=== PATIENT | male | born 1955 | race Two or more races ===

== ENCOUNTER 2024-02-29 13:35 | Inpatient (IN) | payer OTHER, MEDICARE, SELFPAY ==
[2024-02-29] VITALS (9 sets, daily range): BP systolic 112–160; BP diastolic 63–80; PULSE 97–107; RESP 15–92; TEMP 36.9–37.9; O2SAT 92–97; BMI 26.2; BMI 21.4
--- NOTE | 2024-02-29 13:57 | XR_ITS ---
Examination: PA lateral chest 2 views TECHNIQUE: Upright PA lateral chest 2 views Exam date and time: February 29, 2024 1400 hours INDICATIONS: Coughing fever beginning 2 weeks ago. FINDINGS: Prominent pneumonia in the right upper lobe which may be cavitary Normal heart size Right internal jugular dialysis catheter tips SVC satisfactory position IMPRESSION: Prominent pneumonia in the right upper lobe, which may be cavitary
--- NOTE | 2024-02-29 13:57 | EKG_ITS ---
[facility], [place] Test Date: 2024-02-29 Pat Name: LALY JERNIGAN Department: Room: - Gender: Male [employer]: : 1955 Requested By: Azael Vicente Order Number: [id number] Reading MD: Azael Vicente Measurements Intervals [place] Rate: 94 P: 56 [place]: 127 QRS: 4 QRSD: 86 T: 124 QT: 359 QTc: 450 Interpretive Statements SINUS RHYTHM NONSPECIFIC ST & T-WAVE ABNORMALITY No previous ECG available for comparison /store/S0/[id number]/ecg/[id number].pdf
--- NOTE | 2024-02-29 13:58 | EDRME_ITS ---
Rapid Medical Screening Exam [facility] Arrival date/time: 02/29/24 13:35 68-year-old male with a history of type 2 diabetes on dialysis Thursday and Thursday, hypertension, hyperlipidemia presents to the emergency room with a chief complaint of generalized weakness, headache, night sweats, fevers x 1 week that have progressively gotten worse the last 2 days. I have greeted and performed a focused initial assessment of this patient. A comprehensive ED assessment and evaluation of the patient, analysis of all test results, and completion of the medical decision making process will be conducted by additional ED providers. Chief Complaint: Flu Like Symptoms Vital signs: Vital Signs Temperature 98.6 F 02/29/24 13:54 Pulse Rate 97 02/29/24 13:54 Respiratory Rate 18 02/29/24 13:54 Blood Pressure 112/63 02/29/24 13:54 Pulse Oximetry (%) 96 02/29/24 13:54 Oxygen Delivery Method Room Air 02/29/24 13:54 Vital signs reviewed by provider: Yes
[2024-02-29 14:44] LABS: Basophils # (Auto) 0.1 Thou/mm3 (0.0-0.2); Basophils % (Auto) 1 % (0-2.5); Eosinophils # (Auto) 0.1 Thou/mm3 (0.0-0.5); Eosinophils % (Auto) 1 % (0-10); Hematocrit 37.8 % (41.0-53.0); Hemoglobin 12.1 g/dL (13.5-16.0); Immature Granulocytes % (Auto) 2 % (0-0); Immature Granulocytes Auto 0.14 Thou/mm3 (0.00-0.00); Lymphocytes # (Auto) 0.4 Thou/mm3 (1.0-4.8); Lymphocytes % (Auto) 5 % (10-50); Mean Corpuscular Hemoglobin 26.6 pg (25.0-35.0); Mean Corpuscular Volume 83 fL (80-100); Monocytes # (Auto) 1.1 Thou/mm3 (0.0-0.8); Monocytes % (Auto) 14 % (0-12); Neutrophils # (Auto) 6.2 Thou/mm3 (1.8-7.7); Neutrophils % (Auto) 77 % (37-80); Nucleated Red Blood Cell % 0 /100 WBC (0); Platelet Count 219 Thou/mm3 (140-440); RDW Standard Deviation 59.4 fL (35.1-43.9); Red Blood Count 4.55 Miln/mm3 (4.50-5.90)
[2024-02-29 14:59] LABS: INR 1.1 (0.9-1.3); Partial Thromboplastin Time 28.4 Seconds (22.0-36.0); Prothrombin Time 11.8 Seconds (9.0-12.2)
[2024-02-29 15:04] LABS: B-Type Natriuretic Peptide 179 pg/mL (0-100)
[2024-02-29 15:13] LABS: Anion Gap 9 (7-16); BUN/Creatinine Ratio 7 Ratio (12-20); Blood Urea Nitrogen 22 mg/dL (9-23); Carbon Dioxide 26.3 mMol/L (20.0-31.0); Chloride 95 mMol/L (98-107); Estimated Creatinine Clearance 18.6 mL/min (>60); Glucose 155 mg/dL (74-106); Potassium 3.6 mMol/L (3.4-5.1); Sodium 130 mMol/L (136-145); eGFR 22 See Note
[2024-02-29 15:14] LABS: Albumin, Serum 3.9 gm/dL (3.4-4.8); Albumin/Globulin Ratio 0.7 (1.2-2.2); Alkaline Phosphatase 142 U/L (46-116); Aspartate Amino Transferase 16 U/L (0-34); Bilirubin,Total 0.4 mg/dL (0.3-1.2); Calcium 8.8 mg/dL (8.3-10.6); Calcium (Corrected) 8.9 mg/dL (8.5-10.1); Globulin 5.8 gm/dL (2.3-3.5); Lipase 65 U/L (12-53); Magnesium 2.2 mg/dL (1.6-2.6); Osmolality,Calculated 267 (275-295); Total Protein 9.7 gm/dL (5.7-8.2)
[2024-02-29 15:28] LABS: Alanine Aminotransferase 8 U/L (10-49)
[2024-02-29 15:29] LABS: Troponin I 0.104 ng/mL (0.0-0.045)
[2024-02-29 16:50] LABS: Collection Type, Urine Clean Catch; RBC,Urine 0 /hpf (0-3); Squamous Epithelial Cell,Urine 0 /hpf (0-5)
[2024-02-29 17:06] LABS: Bacteria,Urine 3+; Bilirubin,Urine Negative (Negative); Blood,Urine 1+ (Negative); Budding Yeast,Urine Present; Clarity,Urine Turbid (Clear/Hazy); Color,Urine Lt-Yellow (Lt Yel-Yel); Glucose, Urine 3+ (Negative); Ketones,Urine Negative (Negative); Leukocyte Esterase,Urine Negative (Negative); Nitrite,Urine Negative (Negative); PH,Urine 6.5 (5.0-7.0); Protein,Urine 2+ (Neg - Trace); Urobilinogen,Urine Negative mg/dL (0.0-1.0); WBC,Urine 1 /hpf (0-5)
--- NOTE | 2024-02-29 17:55 | XR_ITS ---
Examination: CT chest, without intravenous contrast. Sagittal and coronal 2-D reconstructions. Exam date and time: February 29, 2024 1823 hrs. Fever coughing today, pneumonia in the right upper lobe on chest x-ray, today, cavitary CTDI:vol (mGy) 9.9 DLP: (mGycm) 357 Technique: Multiple 3.0 mm axial sections of the chest to been obtained. Bone and lung density settings are obtained. Sagittal and coronal 2-D reconstructions have been obtained. Low dose protocols were performed. One or more of the following dose reduction techniques were used; automated exposure control, adjustment of the mA and/or KV according to patient size, use of iterative reconstruction technique. Findings: AP dimension ascending thoracic aorta 3.7 cm Pulmonary artery segments are not enlarged Extensive pneumonia in the right upper lobe primarily posterior segment with areas of small cavitation axial image 81 Scattered areas of mild infiltrate throughout the left lung and at the right lung base No visualized liver or splenic lesion Absent gallbladder No pancreatic mass No hydronephrosis The osseous structures are demineralized Impression: Extensive cavitary infiltrate in the right upper lobe primarily posterior segment Scattered areas of milder infiltrate throughout the left lung and at the right lung base Highest on the differential list is infectious processes including active tuberculosis, underlying tumor in the right upper lobe not excluded Follow-up chest imaging recommended post treatment to document improvement clearing
--- NOTE | 2024-02-29 17:56 | PD.EDADULT ---
ED General RME/HPI General Chief complaint: Flu Like Symptoms Stated complaint: FEVER, MITCHELL, BODYACHES Time Seen by Provider: 02/29/24 17:50 Arrival date/time: 02/29/24 13:35 CC: Night sweats and fevers HPI ongoing x 1 week. 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 Subjective fevers at home. At the time of the exam the patient was shaking. Denies any chest pain or shortness of breath RME / HPI RME / HPI narrative: 02/29/24 13:35 68-year-old male with a history of type 2 diabetes on dialysis Thursday and Thursday, hypertension, hyperlipidemia presents to the emergency room with a chief complaint of generalized weakness, headache, night sweats, fevers x 1 week that have progressively gotten worse the last 2 days. I have greeted and performed a focused initial assessment of this patient. A comprehensive ED assessment and evaluation of the patient, analysis of all test results, and completion of the medical decision making process will be conducted by additional ED providers. Related Data Allergies Allergy/AdvReac Type Severity Reaction Status Date / Time No Known Allergies Allergy Verified 07/28/22 16:17 Review of Systems Review of Systems Narrative Review of Systems: GEN: + fever, no chills, no weight loss EYES: No discharge, no visual changes, no pain HEENT: No ear pain, no congestion, no sore throat PULM: No shortness of breath, no cough, no congestion CV: No chest pain, no dyspnea on exertion, no palpitations GI: No nausea, no vomiting, no diarrhea, no pain, no constipation : No frequency, no urgency, no dysuria MUSC/SKEL: No joint pain, no back pain SKIN: No rash PSYCH: No hallucinations, no depression HEME/LYMPH: No easy bleeding or bruising tendencies NEURO: No weakness, no headache ED Exam Narrative Physical exam: [General: Mild discomfort on any acute distress Head normocephalic HEENT: Within acceptable limits Neck is supple nontender Chest equal chest rise nontender to palpation, dialysis shunt emerging from the right anterior chest dressing is clean dry and intact no surrounding erythema or edema. Respiratory: Clear to auscultation no wheezes crackles or rubs CV: Rate rhythm is regular no murmurs rubs or clicks Abdomen is soft nontender no masses positive bowel sounds all 4 quadrants Back: No CVA tenderness no spinous process tenderness from cervical spine thoracic and lumbar spine Skin: Intact no petechiae rash induration ulceration or crepitus Extremities: Moving all extremity against resistance cap refill less than 2 seconds neurosensory intact Neuro: Awake alert oriented x3 Glascow coma 15 no focal deficits] Course Quality Measures none Orders Category Date Time Status Bedside COVID-19 Antigen Test NOW Care 02/29/24 13:58 Active Bedside Influenza A&B Antigen Test NOW Care 02/29/24 13:58 Completed Radiation Therapist STAT Care 02/29/24 20:15 Active Continuous Pulse Oximetry STAT Care 02/29/24 20:15 Active EKG (ED ONLY) *Do not use* NOW Care 02/29/24 13:57 Completed In and Out Catheter X1PRN Care 02/29/24 20:15 Active Insert IV NOW Care 02/29/24 20:15 Active NPO STAT Care 02/29/24 20:15 Active Saline [Insert IV] NOW Care 02/29/24 17:55 Active Strict Intake and Output Routine Care 02/29/24 20:[address] chest wo con Stat Exams 02/29/24 17:55 Completed EKG (ED Only) Stat Exams 02/29/24 13:57 Draft XR chest 2V Stat Exams 02/29/24 13:57 Completed B-Type Natriuretic Peptide Stat Lab 02/29/24 14:26 Completed B-Type Natriuretic Peptide Stat Lab 02/29/24 20:15 Ordered Blood Culture (Lab) Stat Lab 02/29/24 19:50 Ordered CBC Stat Lab 02/29/24 14:26 Completed CBC Stat Lab 02/29/24 20:15 Ordered Cocci Serology IgM with reflex to IgG [Cocci Serology, Lab 02/29/24 18:50 Received Unk History] Stat Comprehensive Metabolic Panel Stat Lab 02/29/24 14:26 Completed LDH (Lactate Dehydrogenase) Stat Lab 02/29/24 19:49 Ordered Lactic Acid [Lactate (Lactic Acid)] Stat Lab 02/29/24 19:49 Ordered Lipase Stat Lab 02/29/24 14:26 Completed Magnesium Stat Lab 02/29/24 14:26 Completed Magnesium Stat Lab 02/29/24 19:49 Ordered Partial Thromboplastin Time Stat Lab 02/29/24 14:26 Completed Phosphorous Stat Lab 02/29/24 19:49 Ordered Procalcitonin Stat Lab 02/29/24 20:15 Ordered Prothrombin Time with INR Stat Lab 02/29/24 14:26 Completed Quantiferon-TB* Stat Lab 02/29/24 19:50 Ordered Troponin I Stat Lab 02/29/24 14:26 Completed Troponin I Stat Lab 02/29/24 18:10 Completed Troponin I Stat Lab 02/29/24 19:49 Ordered Urinalysis Stat Lab 02/29/24 16:44 Completed Urinalysis Stat Lab 02/29/24 20:15 Ordered Urine Culture Stat Lab 02/29/24 20:15 Ordered Acetaminophen Tab [Tylenol Tab] Med 02/29/24 20:15 Discontinued 650 mg PO X1 ONE cefTRIAXone/D5w 1gm IV premix [Rocephin/D5w 1gm IV Med 02/29/24 17:55 Discontinued premix] 50 ml IV X1 Oxygen Delivery NOW RT 02/29/24 20:15 Active Vital Signs Vital signs: Vital Signs Temperature 98.6 F 02/29/24 13:54 Pulse Rate 97 02/29/24 13:54 Respiratory Rate 18 02/29/24 13:54 Blood Pressure 112/63 02/29/24 13:54 Pulse Oximetry (%) 96 02/29/24 13:54 Oxygen Delivery Method Room Air 02/29/24 13:54 [facility] Patient data External records reviewed:: [facility] previous records Clinical information provided by:: patient and spouse Social determinants that could affect healthcare access:: none Patient has the following chronic illnesses:: ESRD dialysis How is presenting disease/condition affected by chronic disease/condition?: uneffected by Evaluation data The following diagnostics were reviewed and interpreted by me:: lab results, radiology exam(s) and EKG tracing(s) Lab and/or radiology exams considered but not ordered:: CBC shows no acute leukocytosis anemia thrombocytopenia CMP shows no significant lecture imbalances creatinine of 3 no other electrolyte imbalances no transaminitis or T. bili elevation Coags within acceptable limits Initial and delta troponin at 0.1 BNP of 179 Urine shows 3+ bacteria but no leukocyte esterase nitrites or leukocyte The time of this dictation lactic acid Pro-Delta cocci titer were pending, Chest x-ray shows significant right-sided pneumonia CT of the chest shows cavitating lesion in the right side suggestive of pneumonia possible TB. Interpretation Summary: At the time of this dictation the patient spiked a fever at 100.3 has become tachycardic. Sepsis was initiated. Patient's case also discussed with Dr. Maldonado resident for Dr. Galan who agrees to accept the patient for admission for pneumonia. Patient reports that he has had TB ruled out twice before prior areas however the patient now has a's early sepsis component to this along with cavitation leading cocci titers not available at this time patient needs to be admitted for medical management and rule out. Medications Medications considered but not ordered:: None Medication administrations:: Medication Administration History Discontinued Medications Acetaminophen (Acetaminophen 325 Mg Tablet) 650 mg PO X1 ONE Stop: 02/29/24 20:16 Ceftriaxone Sodium/Dextrose (Rocephin/D5w 1gm Iv Premix) 50 mls @ 100 mls/hr IV X1 ONE Stop: 02/29/24 18:24 Last Infusion: 02/29/24 20:10 Dose: Infused Documented By: Admin: 02/29/24 19:37 Dose: 100 mls/hr Documented By: STARAL None Consultations Consultation(s) initiated? (list below): No Diagnosis Differential Diagnosis ED Complaint MDM: TB, coccidiomycosis, bacterial pneumonia Most likely diagnosis given after review of the tests above:: Pneumonia with cavitating lesion Admission Indicated Admission indicated?: indicated Explain why admission is indicated or not indicated:: Further medical management Admission Request Was there a request for admission?: No Disposition Plan Disposition Plan: Admit Medical Decision Making Differential Diagnosis Differential Diagnosis: TB, coccidiomycosis, bacterial pneumonia Lab Data 02/29/24 14:26 02/29/24 14:26 Labs: Lab Results 02/29/24 02/29/24 02/29/24 Range/Units 14:26 16:44 18:10 WBC 8.0 (3.8-10.6) Thou/mm3 RBC 4.55 (4.50-5.90) Miln/mm3 Hgb 12.1 L (13.5-16.0) g/dL Hct 37.8 L (41.0-53.0) % MCV 83 (80-100) fL MCH 26.6 (25.0-35.0) pg MCHC 32.0 (31.0-37.0) g/dl RDW Std Deviation 59.4 H (35.1-43.9) fL Plt Count 219 (140-440) Thou/mm3 Neut % (Auto) 77 (37-80) % Lymph % (Auto) 5 L (10-50) % [place] % (Auto) 14 H (0-12) % Eos % (Auto) 1 (0-10) % Baso % (Auto) 1 (0-2.5) % Neut # (Auto) 6.2 (1.8-7.7) Thou/mm3 Lymph # (Auto) 0.4 L (1.0-4.8) Thou/mm3 [place] # (Auto) 1.1 H (0.0-0.8) Thou/mm3 Eos # (Auto) 0.1 (0.0-0.5) Thou/mm3 Baso # (Auto) 0.1 (0.0-0.2) Thou/mm3 Immature Gran # (Auto) 0.14 H (0.00-0.00) Thou/mm3 Absolute Nucleated RBC 0.00 (0.00-0.00) Thou/mm3 Immature Gran % 2 H (0-0) % Nucleated RBC % 0 (0) /100 WBC PT 11.8 (9.0-12.2) Seconds INR 1.1 (0.9-1.3) APTT 28.4 (22.0-36.0) Seconds Sodium 130 L (136-145) mMol/L Potassium 3.6 (3.4-5.1) mMol/L Chloride 95 L (98-107) mMol/L Carbon Dioxide 26.3 (20.0-31.0) mMol/L Anion Gap 9 (7-16) BUN 22 (9-23) mg/dL Creatinine 3.0 H (0.6-1.3) mg/dL Estim Creat Clear Calc 18.6 L (>60) mL/min eGFR 22 L (60 - ) See Note BUN/Creatinine Ratio 7 L (12-20) Ratio Glucose 155 H (74-106) mg/dL Calculated Osmolality 267 L (275-295) Calcium 8.8 (8.3-10.6) mg/dL Corrected Calcium 8.9 (8.5-10.1) mg/dL Magnesium 2.2 (1.6-2.6) mg/dL Total Bilirubin 0.4 (0.3-1.2) mg/dL AST 16 (0-34) U/L ALT 8 L (10-49) U/L Alkaline Phosphatase 142 H (46-116) U/L Troponin I 0.104 H* 0.103 H* (0.0-0.045) ng/mL B-Natriuretic Peptide 179 H (0-100) pg/mL Total Protein 9.7 H (5.7-8.2) gm/dL Albumin 3.9 (3.4-4.8) gm/dL Globulin 5.8 H (2.3-3.5) gm/dL Albumin/Globulin Ratio 0.7 L (1.2-2.2) Lipase 65 H (12-53) U/L Ur Collection Type Clean Catch Urine Color Lt-Yellow (Lt Yel-Yel) Urine Clarity Turbid A (Clear/Hazy) Urine pH 6.5 (5.0-7.0) Ur Specific [place] 1.010 (1.001-1.035) Urine Protein 2+ A (Neg - Trace) Urine Glucose (UA) 3+ A (Negative) Urine Ketones Negative (Negative) Urine Blood 1+ A (Negative) Urine Nitrite Negative (Negative) Urine Bilirubin Negative (Negative) Urine Urobilinogen (Auto) Negative (0.0-1.0) mg/dL Ur Leukocyte Esterase Negative (Negative) Urine RBC 0 (0-3) /hpf Urine WBC 1 (0-5) /hpf Ur Squamous Epith Cells 0 (0-5) /hpf Urine Bacteria 3+ A (None) Urine Yeast (Budding) Present A (None) Discharge Plan Plan Patient Disposition: Other Care w/in Hosp ([facility]) Patient condition on transfer: Stable Prescriptions/Referrals Referrals: No Primary/Family,Physician [Primary Care Provider] - In 1 week Problem List Clinical Impression: Pneumonia Patient/Caregiver Discharge Instructions Education Materials: ED Pneumonia (Adult) Print Language: Divehi Stand Alone Forms: Sara Award Info., Patient Portal Info Letter PA/LON Supervising Physician PA/LON Supervising Physician: Maldonado Braun ENP
[2024-02-29 19:11] LABS: Troponin I 0.103 ng/mL (0.0-0.045)
[2024-02-29] MEDS: cefTRIAXone/D5w 1gm IV premix 50 ML IV (19:37)
[2024-02-29] MEDS: ACETAMINOPHEN 325 MG TABLET 650 MG PO (20:31)
--- NOTE | 2024-02-29 21:10 | ESHP_ITS ---
Documentation for date of: 02/29/24 [facility] History of Present Illness Chief complaint: fever and night sweats History of present illness: Patient is Iranian-speaking and history was taken with the help of manufacturers representative on the phone call A 68 year old male with significant past medical history of Hypertension, ESRD on HD [Thursday/Thursday], hypothyroidism, diabetes mellitus on insulin presented to the hospital with chief complaints of fever since 2 to 3 weeks. Patient endorsed that he is having fevers ranging 101 to 103 ?F since almost 2 to 3 weeks, resolves with Tylenol, associated with chills and rigors, also endorsed night sweats since 2 days before the day of admission. Endorsed that he loses and gains weight continuously. Denies shortness of breath and endorsed mild cough with occasional sputum which is mucoid in color associated with no hemoptysis. Stated that he is on dialysis since 3 months, Thursday and Thursday every week, last dialysis is on 02/29/2024. Initially patient was following with Dr. Prieto but not anymore and not seeing any director of guidance in public schools as of now. Recent hospital admission in [facility] for uncontrolled Hypertension in October 2023 ED Course: -Initial vitals were blood pressure 112/63 mmHg, pulse rate 97 bpm, respiratory rate 18/min, SpO2 96% with room air. In the ED, patient developed a spike of 100.3 ?F -Labs significant for Hb 11.9, sodium 130, potassium 3.6, chloride 95, BUN 22, creatinine 3, troponin 0.103, BNP 199, procalcitonin 1.24. Urine analysis showed 2+ proteinuria, 3+ glucosuria. Chest x-ray showed patchy infiltrate in the right upper lobe. CT chest showed cavitary lesion in the right upper lobe. EKG showed sinus rhythm. -In the ED, patient was given ceftriaxone, a dose of Tylenol. -Patient was admitted for right upper lobe consolidation and to rule out TB versus cocci versus malignancy Past medical history: Hypertension, ESRD on HD [Thursday/Thursday], hypothyroidism, diabetes mellitus on insulin Past surgical history: Cholecystectomy Social history: Denies smoking, alcohol, other illicit drug abuse. Review of Systems Review of Systems Narrative Review of Systems: Constitutional: No Weight Change, Fever, Chills, Night Sweats, Fatigue, Malaise ENT/Mouth: No Hearing Changes, No Ear Pain, No Nasal Congestion, No Sinus Pain, No Hoarseness, No sore throat, No Rhinorrhea, No Swallowing Difficulty Eyes: No Eye Pain, No Swelling, No Redness, No Foreign Body, No Discharge, No Vision Changes Cardiovascular: No Chest Pain, No SOB, No PND, No Dyspnea on Exertion, No Orthopnea, No Edema, No Palpitations Respiratory: No Cough, No Sputum, No Wheezing, No Dyspnea Gastrointestinal: No Nausea, No Vomiting, No Diarrhea, No Constipation, No Pain, No Heartburn, No Anorexia, No Dysphagia, No Hematochezia, No Melena, No Flatulence, No Jaundice Genitourinary: No Dysuria, No Urinary Frequency, No Hematuria, No Urinary Incontinence, No Urgency, No Flank Pain, No Urinary Flow Changes, No Hesitancy Musculoskeletal: No Arthralgias, No Myalgias, No Joint Swelling, No Joint Stiffness, No Back Pain, No Neck Pain, No Injury History Skin: No Skin Lesions, No Pruritis Neuro: No Weakness, No Numbness, No Paresthesias, No Loss of Consciousness, No Syncope, No Dizziness, No Headache, No Coordination Changes, No Recent Falls Exam Vital Signs Temp Pulse Resp BP Pulse Ox O2 Del Method O2 Flow Rate 100.3 F 104 H 15 144/66 H 92 L Room Air 2 02/29/24 20:31 02/29/24 19:00 02/29/24 19:00 02/29/24 19:00 02/29/24 19:00 02/29/24 18:59 02/29/24 17:36 Narrative Exam General: Awake. Moderately built and nourished. HEENT: Normocephalic, atraumatic, mucous membranes moist. Heart: Regular rate and rhythm, no murmurs. Lungs: Clear to auscultation with no wheezing or crackles. Abdomen: Soft, nondistended, nontender, positive bowel sounds. ?No guarding or rebound tenderness. Neurologic: Alert and oriented x3, no gross neurological deficit, and patient able to move all 4 extremities. Extremities: No edema. Skin: No rash or ecchymoses. Results: Labs 02/29/24 21:14 02/29/24 14:26 Labs: Short CBC 02/29/24 Range/Units 14:26 WBC 8.0 (3.8-10.6) Thou/mm3 Hgb 12.1 L (13.5-16.0) g/dL Hct 37.8 L (41.0-53.0) % Plt Count 219 (140-440) Thou/mm3 BMP 02/29/24 14:26 Sodium 130 L Potassium 3.6 Chloride 95 L Carbon Dioxide 26.3 BUN 22 Creatinine 3.0 H Glucose 155 H Calcium 8.8 Cardiac Enzymes 02/29/24 02/29/24 Range/Units 14:26 18:10 Troponin I 0.104 H* 0.103 H* (0.0-0.045) ng/mL Liver Function 02/29/24 Range/Units 14:26 Total Bilirubin 0.4 (0.3-1.2) mg/dL AST 16 (0-34) U/L ALT 8 L (10-49) U/L Alkaline Phosphatase 142 H (46-116) U/L Albumin 3.9 (3.4-4.8) gm/dL Urine 02/29/24 Range/Units 16:44 Urine Color Lt-Yellow (Lt Yel-Yel) Urine Clarity Turbid A (Clear/Hazy) Urine pH 6.5 (5.0-7.0) Ur Specific [place] 1.010 (1.001-1.035) Urine Protein 2+ A (Neg - Trace) Urine Glucose (UA) 3+ A (Negative) Quality Measures Quality Measures none Advance care planning discussed with:: patient Medications Home Medications and Allergies Home Medications ?Medication ?Instructions ?Recorded ?Confirmed ?Type aspirin 81 mg tablet,delayed 81 mg PO 1XD 02/29/24 02/29/24 History release atorvastatin 80 mg tablet 80 mg PO QDAY 02/29/24 02/29/24 History furosemide 40 mg tablet 40 mg PO BID 02/29/24 02/29/24 History hydralazine 25 mg tablet 25 mg PO TID 02/29/24 02/29/24 History levothyroxine 50 mcg tablet 50 mcg PO QDAY 02/29/24 02/29/24 History nifedipine 60 mg tablet,extended 60 mg PO 1XD 02/29/24 02/29/24 History release omeprazole 20 mg capsule,delayed 20 mg PO 1XD 02/29/24 02/29/24 History release sevelamer carbonate 800 mg tablet 800 mg PO TID 02/29/24 02/29/24 History Allergies Allergy/AdvReac Type Severity Reaction Status Date / Time No Known Allergies Allergy Verified 07/28/22 16:17 Visit Medications Discontinued Medications Acetaminophen (Acetaminophen 325 Mg Tablet) 650 mg PO X1 ONE Stop: 02/29/24 20:16 Last Admin: 02/29/24 20:31 Dose: 650 mg Ceftriaxone Sodium/Dextrose (Rocephin/D5w 1gm Iv Premix) 50 mls @ 100 mls/hr IV X1 ONE Stop: 02/29/24 18:24 Last Infusion: 02/29/24 20:10 Dose: Infused Assessment & Plan Plan A 68 year old male with significant past medical history of Hypertension, ESRD on HD [Thursday/Thursday], hypothyroidism, diabetes mellitus on insulin presented to the hospital with chief complaints of fever since 2 to 3 weeks and admitted for Right lung consolidation to R/O Cocci vs TB vs Malignancy # Fever # Right upper lobe consolidation # To rule out cocci versus TB versus malignancy -Presented to the hospital with complaints of fever since 2 weeks associated with chills and rigors -Endorsing night sweats since 2 days before the age of admission. Denies shortness of breath and endorsed occasional cough with mucoid sputum. -Tested negative for skin tuberculin test twice in the last 6 months -In the ED, patient had a febrile episode of 100.3 ?F -Vitals are stable and patient is maintaining saturations well on room air -CBC is unremarkable except for mild anemia. Procalcitonin is 1.24, lactate is 0.8 -Chest x-ray showed right upper lobe consolidation and CT chest showed cavitatory lesion in right upper lobe Plan -Started on ceftriaxone 1 g IV daily and doxycycline 100 mg p.o. twice daily [02/28- -cocci was ordered, follow-up with results -TB QuantiFERON was ordered -Blood, sputum culture and Gram stain were ordered # Insulin-dependent diabetes mellitus -Patient is using Tresiba 18 Units and lispro 6,12,6 units at home -HbA1c is ordered -Started on insulin sliding scale and Insulin Glargine 10 units SC -Hypoglycemia protocol in place # ESRD on HD # Mild hyponatremia -Patient was started on HD 3 months back, 2 days/week Thursday and Thursday, last dialysis is on 02/29/2024 -Patient initially followed with Dr. Dinh but not seeing any director of guidance in public schools as of now -BUN is 22 and creatinine is 3 on admission -Recommended nephrology consult and monitor renal functions and electrolytes -Avoid nephrotoxic medications and renally dose medications -Monitor input and output # Elevated troponins -Troponin at the time of admission is 0.103, likely due to ESRD -BNP is 199 # Mild Normocytic Normochromic Anemia # ?Anemia due to ESRD -Hemoglobin at the time of admission is 11.9, MCV, MCH and MCHC are within normal limits -Iron panel and ferritin was ordered, follow-up with results -Replete stores as needed -Started on [facility] Maintenance: Dispo: MedSurg DVT ppx: Heparin GI ppx: Not needed Diet: Renal, low carbohydrate consistent IV lines: Peripheral Code status: Full Patient plan of care was discussed with the attending physician, Dr. Angelia Vela, PGY1 Attending Provider Attestation/Addendum 68-year-old male patient who is being admitted for workup and treatment of cavitary pneumonia. Patient has been having fever for about 2 weeks. He denies weight loss. The patient denies hemoptysis. The patient is on hemodialysis by Dr. Dinh every Thursday and Thursday. Discussed with housestaff. To rule out TB, obtain cocci serology.
[2024-02-29 21:32] LABS: Lactate (Lactic Acid) 0.8 mMol/L (0.4-2.0)
--- NOTE | 2024-02-29 21:32 | PC.RT ---
pt able to expectorated sputum obtained at 2125 sent to lab.
[2024-02-29 21:36] LABS: Basophils # (Auto) 0.1 Thou/mm3 (0.0-0.2); Basophils % (Auto) 1 % (0-2.5); Eosinophils # (Auto) 0.1 Thou/mm3 (0.0-0.5); Eosinophils % (Auto) 1 % (0-10); Hematocrit 37.6 % (41.0-53.0); Hemoglobin 11.9 g/dL (13.5-16.0); Immature Granulocytes % (Auto) 2 % (0-0); Immature Granulocytes Auto 0.14 Thou/mm3 (0.00-0.00); Lymphocytes # (Auto) 0.7 Thou/mm3 (1.0-4.8); Lymphocytes % (Auto) 9 % (10-50); Mean Corpuscular HGB Conc 31.6 g/dl (31.0-37.0); Mean Corpuscular Hemoglobin 26.1 pg (25.0-35.0); Mean Corpuscular Volume 83 fL (80-100); Monocytes % (Auto) 12 % (0-12); Neutrophils # (Auto) 6.5 Thou/mm3 (1.8-7.7); Neutrophils % (Auto) 76 % (37-80); Nucleated Red Blood Cell % 0 /100 WBC (0); Platelet Count 196 Thou/mm3 (140-440); RDW Standard Deviation 59.3 fL (35.1-43.9); Red Blood Count 4.56 Miln/mm3 (4.50-5.90); White Blood Count 8.5 Thou/mm3 (3.8-10.6)
[2024-02-29 21:38] LABS: Collection Type, Urine Clean Catch
[2024-02-29] MEDS: HEPARIN SOD INJ 5000 UNIT/ML VIAL SC (21:45)
[2024-02-29 21:56] LABS: B-Type Natriuretic Peptide 199 pg/mL (0-100)
[2024-02-29 22:14] LABS: Magnesium 2.1 mg/dL (1.6-2.6)
[2024-02-29 22:15] LABS: Troponin I 0.103 ng/mL (0.0-0.045)
[2024-02-29 22:18] LABS: Bacteria,Urine Rare; Bilirubin,Urine Negative (Negative); Blood,Urine Trace (Negative); Clarity,Urine Clear (Clear/Hazy); Color,Urine Lt-Yellow (Lt Yel-Yel); Glucose, Urine 3+ (Negative); Hyaline Casts,Urine < 1 /hpf (0-1); Ketones,Urine Negative (Negative); Leukocyte Esterase,Urine Negative (Negative); Nitrite,Urine Negative (Negative); Protein,Urine 2+ (Neg - Trace); RBC,Urine 6 /hpf (0-3); Specific Gravity,Urine 1.012 (1.001-1.035); Squamous Epithelial Cell,Urine < 1 /hpf (0-5); Urobilinogen,Urine Negative mg/dL (0.0-1.0); WBC,Urine 1 /hpf (0-5)
[2024-02-29 22:22] LABS: Phosphorous 3.6 mg/dL (2.4-5.1); Procalcitonin 1.24 ng/ml (0.0-0.49)
[2024-02-29 22:33] LABS: LDH (Lactate Dehydrogenase) 299 U/L (120-246)
[2024-03-01] VITALS (7 sets, daily range): BP systolic 150–181; BP diastolic 75–94; PULSE 86–101; RESP 17–18; TEMP 36.4–37.4; O2SAT 96–99
[2024-03-01] MEDS: DOXYCYCLINE 100 MG TABLET PO ×3 (00:18→20:42)
--- NOTE | 2024-03-01 00:47 | PC.NURSE ---
Pt is complaining of excessive thirst and stating that it's not a normal feeling for him and wanted his blood sugar to be checked. Notify MD of pt's complain. Random blood sugar check is 322. MD Vela will check the chart.
[2024-03-01] MEDS: INSULIN GLARGINE (Lantus) 5 UNIT/0.05 ML (PER 5 UNITS) 10 UNIT SC ×2 (01:02→10:01)
[2024-03-01 06:33] LABS: Quantiferon-TB* See Sep Rpt
[2024-03-01 06:37] LABS: Basophils # (Auto) 0.1 Thou/mm3 (0.0-0.2); Basophils % (Auto) 1 % (0-2.5); Eosinophils # (Auto) 0.1 Thou/mm3 (0.0-0.5); Eosinophils % (Auto) 1 % (0-10); Hematocrit 39.8 % (41.0-53.0); Hemoglobin 12.6 g/dL (13.5-16.0); Immature Granulocytes % (Auto) 2 % (0-0); Immature Granulocytes Auto 0.14 Thou/mm3 (0.00-0.00); Lymphocytes # (Auto) 0.8 Thou/mm3 (1.0-4.8); Lymphocytes % (Auto) 10 % (10-50); Mean Corpuscular HGB Conc 31.7 g/dl (31.0-37.0); Mean Corpuscular Hemoglobin 26.5 pg (25.0-35.0); Mean Corpuscular Volume 84 fL (80-100); Monocytes % (Auto) 12 % (0-12); Neutrophils # (Auto) 5.8 Thou/mm3 (1.8-7.7); Neutrophils % (Auto) 74 % (37-80); Nucleated Red Blood Cell % 0 /100 WBC (0); Platelet Count 170 Thou/mm3 (140-440); RDW Standard Deviation 60.1 fL (35.1-43.9); Red Blood Count 4.76 Miln/mm3 (4.50-5.90); White Blood Count 7.8 Thou/mm3 (3.8-10.6)
[2024-03-01 07:06] LABS: Glucose Estimated Average 166 mg/dL (80-131); Hemoglobin A1C 7.4 % Hgb (4.8-6.0)
[2024-03-01 07:47] LABS: Anion Gap 10 (7-16); BUN/Creatinine Ratio 7 Ratio (12-20); Blood Urea Nitrogen 26 mg/dL (9-23); Calcium 8.8 mg/dL (8.3-10.6); Carbon Dioxide 23.7 mMol/L (20.0-31.0); Cardiac Risk Estimate 2.1 RATIO (4.0-6.7); Chloride 93 mMol/L (98-107); Cholesterol 83 mg/dL (132-200); Creatinine (Component) 3.5 mg/dL (0.6-1.3); Estimated Creatinine Clearance 17.5 mL/min (>60); Glucose 205 mg/dL (74-106); HDL Cholesterol 39 mg/dL (40-60); LDL Cholesterol,Calculated 18 mg/dL (0-130); Osmolality,Calculated 265 (275-295); Potassium 3.7 mMol/L (3.4-5.1); Sodium 127 mMol/L (136-145); Triglycerides 128 mg/dL (30-150); eGFR 18 See Note
[2024-03-01 07:48] LABS: Total Iron Binding Capacity 204 mcg/dL (250-425)
[2024-03-01] MEDS: ACETAMINOPHEN 325 MG TABLET 650 MG PO ×3 (08:01→20:42)
[2024-03-01] MEDS: INSULIN LISPRO (AdmeLOG) 1 UNIT/0.01 ML UNIT SC ×3 (08:01→17:33)
[2024-03-01 08:13] LABS: Thyroid Stimulating Hormone 12.68 uIU/mL (0.55-4.78)
[2024-03-01 09:51] LABS: Iron 52 mcg/dL (65-175); Percent Iron Saturation 25 % (20-55); Unsaturated Iron Binding 152 (225-295)
[2024-03-01] MEDS: NIFEdipine XL 30 MG TABCR 60 MG PO (10:02)
[2024-03-01] MEDS: VIT B12/Vit C/FA (Nephrovite) TABLET 1 TAB PO (10:02)
[2024-03-01] MEDS: cefTRIAXone/D5w 1gm IV premix 50 ML IV (10:08)
--- NOTE | 2024-03-01 10:08 | PC.SS ---
Patient José Miguel Cha is a 68 year old male admitted for Cavitatory Lesion. SS contacted patient via phone due to R/O TB. Patient reports he lives at home with his , Lindsay Cha who is his medical decision maker [phone]. Patient reports he does not utilize any source of DME to assist with ambulation. Patient is able to ambulate independently. Choice of pharmacy is [facility]. PCP is Toby Brice. At time of discharge patient will return home. Family will provide transportation. Discharge plan: Home Next of Kin: , Lindsay Cha [phone]
[2024-03-01 14:00] LABS: Cocci Serology, IgM Negative (Negative)
--- NOTE | 2024-03-01 16:09 | ESPR_ITS ---
<Statement entered by Orion Helms MD - 03/01/24 18:13> Patient was seen and examined at the bedside. Patient is admitted overnight he is 68-year-old male who came with night sweats and fever with intermittent weight loss. 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 Patient received his dialysis session yesterday. Given CV and chest x-ray was significant for cavitary lesions cocci and TB workup was ordered. QuantiFERON TB and cocci IgM was added by night team and we added sputum AFB along with blood cultures and MRSA screen. Procalcitonin was elevated on admission. A1c 7.4. Patient had elevated blood pressure with troponin leak most likely developed hypertensive emergency therefore blood pressure was controlled by resuming patient's nifedipine XL home medication only. We consulted ID for further recommendations. Will continue with ceftriaxone and doxycycline and follow-up with culture results. Rest of the workup for Legionella and Aspergillus was also ordered. All labs and orders were reviewed. I saw and examined the patient, and I agree with current management stated by Dr Jp DO, PGY1 Plan of care was discussed with the attending physician and resident physician. Disclaimer: Despite multiple revisions, due to the dictation software being used, the document bellow may not be free of grammatical errors including phonetic/typographic errors. However, this does not deter from our commitment to providing health care in the patient's best interest in mind. Dr. Michael MD, PGY 2 Documentation for date of: 03/01/24 Subjective Subjective Interval history: 03/01: No acute events overnight. Patient states that he only has fever and cough productive of clear sputum. Denies any hemoptysis, brown-green or yellow sputum. Vital signs today notable for blood pressure of 181/94, heart rate of 101. Afebrile, saturating 96% on room air. labs today show sodium level 127. BUN 26, creatinine 3.5, EGFR 18. TSH 12.68, no free T4 ordered by night team, ordered for next morning. Coccidioides IgM antibody negative. Gram stain of sputum shows rare WBCs with rare gram-negative rods. Final sputum culture pending Currently pending QuantiFERON. This a.m. ordered AFB send out, consulted infectious disease, ordered Legionella. MRSA screen, blood culture pending. Restarted home Nifedipine. Spoke with Dr. Dinh who states he is seeing the patient and is following. Will be scheduled for dialysis on Thursday. Exam Vital Signs Temp Pulse Resp BP Pulse Ox O2 Del Method O2 Flow Rate 97.6 F 92 17 177/82 H 96 Room Air 1 03/01/24 16:00 03/01/24 16:00 03/01/24 16:00 03/01/24 16:00 03/01/24 16:00 03/01/24 16:02/29/24 21:33 Narrative Exam General: Awake. Moderately built and nourished. HEENT: Normocephalic, atraumatic, mucous membranes moist. Heart: Regular rate and rhythm, no murmurs. Lungs: Clear to auscultation with no wheezing or crackles. Abdomen: Soft, nondistended, nontender, positive bowel sounds. ?No guarding or rebound tenderness. Neurologic: Alert and oriented x3, no gross neurological deficit, and patient able to move all 4 extremities. Extremities: No edema. Skin: No rash or ecchymoses. Objective Labs 03/04/24 04:17 03/04/24 04:17 Labs: Laboratory Results - last 24 hr 02/29/24 02/29/24 02/29/24 16:44 18:10 18:50 WBC RBC Hgb Hct MCV MCH MCHC RDW Std Deviation Plt Count Neut % (Auto) Lymph % (Auto) Bennett % (Auto) Eos % (Auto) Baso % (Auto) Neut # (Auto) Lymph # (Auto) Bennett # (Auto) Eos # (Auto) Baso # (Auto) Immature Gran # (Auto) Absolute Nucleated RBC Immature Gran % Nucleated RBC % Sodium Potassium Chloride Carbon Dioxide Anion Gap BUN Creatinine Estim Creat Clear Calc eGFR BUN/Creatinine Ratio Glucose Estimated Ave Glu mg/dL Hemoglobin A1c Calculated Osmolality Lactic Acid Calcium Phosphorus Magnesium Iron TIBC Iron Saturation Unsat Iron Binding Lactate Dehydrogenase Troponin I 0.103 H* B-Natriuretic Peptide Triglycerides Cholesterol LDL Cholesterol, Calc HDL Cholesterol Cholesterol/HDL Ratio Procalcitonin TSH Ur Collection Type Clean Catch Urine Color Lt-Yellow Urine Clarity Turbid A Urine pH 6.5 Ur Specific [place] 1.010 Urine Protein 2+ A Urine Glucose (UA) 3+ A Urine Ketones Negative Urine Blood 1+ A Urine Nitrite Negative Urine Bilirubin Negative Urine Urobilinogen (Auto) Negative Ur Leukocyte Esterase Negative Urine RBC 0 Urine WBC 1 Ur Squamous Epith Cells 0 Urine Bacteria 3+ A Hyaline Casts Urine Yeast (Budding) Present A Coccidioides IgM Ab Negative 02/29/24 02/29/24 03/01/24 21:14 21:30 05:05 WBC 8.5 7.8 RBC 4.56 4.76 Hgb 11.9 L 12.6 L Hct 37.6 L 39.8 L MCV 83 84 MCH 26.1 26.5 MCHC 31.6 31.7 RDW Std Deviation 59.3 H 60.1 H Plt Count 196 170 Neut % (Auto) 76 74 Lymph % (Auto) 9 L 10 Bennett % (Auto) 12 12 Eos % (Auto) 1 1 Baso % (Auto) 1 1 Neut # (Auto) 6.5 5.8 Lymph # (Auto) 0.7 L 0.8 L Bennett # (Auto) 1.0 H 1.0 H Eos # (Auto) 0.1 0.1 Baso # (Auto) 0.1 0.1 Immature Gran # (Auto) 0.14 H 0.14 H Absolute Nucleated RBC 0.00 0.00 Immature Gran % 2 H 2 H Nucleated RBC % 0 0 Sodium 127 L Potassium 3.7 Chloride 93 L Carbon Dioxide 23.7 Anion Gap 10 BUN 26 H Creatinine 3.5 H D Estim Creat Clear Calc 17.5 L eGFR 18 L BUN/Creatinine Ratio 7 L Glucose [address] Glu mg/dL 166 H Hemoglobin A1c 7.4 H Calculated Osmolality 265 L Lactic Acid 0.8 Calcium 8.8 Phosphorus 3.6 Magnesium 2.1 Iron 52 L TIBC 204 L Iron Saturation 25 Unsat Iron Binding 152 L Lactate Dehydrogenase 299 H Troponin I 0.103 H* 0.100 H* B-Natriuretic Peptide 199 H Triglycerides 128 Cholesterol 83 L LDL Cholesterol, Calc 18 HDL Cholesterol 39 L Cholesterol/HDL Ratio 2.1 L Procalcitonin 1.24 H TSH 12.68 H Ur Collection Type Clean Catch Urine Color Lt-Yellow Urine Clarity Clear Urine pH 7.0 Ur Specific [place] 1.012 Urine Protein 2+ A Urine Glucose (UA) 3+ A Urine Ketones Negative Urine Blood Trace Urine Nitrite Negative Urine Bilirubin Negative Urine Urobilinogen (Auto) Negative Ur Leukocyte Esterase Negative Urine RBC 6 H Urine WBC 1 Ur Squamous Epith Cells < 1 Urine Bacteria Rare Hyaline Casts < 1 Urine Yeast (Budding) Coccidioides IgM Ab Quality Measures Quality Measures none Advance care planning discussed with:: patient Assessment & Plan Assessment Current Active Medications: Generic Name Dose Route Start Last Admin Trade Name Freq PRN Reason Stop Dose Admin Acetaminophen 650 mg 03/01/24 08:56 03/01/24 14:32 Acetaminophen 325 Mg Tablet PO 03/30/24 21:03 650 mg Q6H PRN Administration Fever >100.3 Dextrose 25 ml 03/01/24 00:49 Dextrose 50%-Water Inj 50 Ml Syringe IV 03/31/24 00:48 Q15MIN PRN BG 50-70 responsive npo pt Dextrose 50 ml 03/01/24 00:49 Dextrose 50%-Water Inj 50 Ml Syringe IV 03/31/24 00:48 Q15MIN PRN BG <50 OR BG <70 & pt unresponsive Doxycycline Hyclate 100 mg 02/29/24 23:45 03/01/24 10:02 Doxycycline 100 Mg Tablet PO 03/07/24 23:44 100 mg BID JOSE EDUARDO Administration Glucagon 1 mg 03/01/24 00:49 Glucagon Inj 1 Mg Vial IM Q15MIN PRN BG <70, and no IV access Heparin Sodium (Porcine) 5,000 unit 02/29/24 22:00 03/01/24 14:32 Heparin Sod Inj 5000 Unit/Ml Vial SC 03/14/24 21:59 Not Given Q8HR JOSE EDUARDO Ceftriaxone Sodium/Dextrose 50 mls @ 100 mls/hr 03/01/24 09:00 03/01/24 10:08 Rocephin/D5w 1gm Iv Premix IV 03/08/24 08:59 100 mls/hr QAM JOSE EDUARDO Administration Insulin Glargine 10 unit 02/29/24 22:00 03/01/24 10:01 Insulin Glargine (Lantus) 5 Unit/0.05 Ml (Per 5 Units) SC 03/30/24 21:59 10 unit QDAY JOSE EDUARDO Administration Insulin Human Lispro 0 unit 03/01/24 11:30 03/01/24 11:38 Insulin Lispro (Admelog) 1 Unit/0.01 Ml Unit SC 03/31/24 11:29 3 unit AC JOSE EDUARDO Administration Protocol Magnesium Hydroxide 30 ml 02/29/24 21:04 Milk Of Magnesia Susp 30 Ml Udc PO 03/30/24 21:03 QDAY PRN CONSTIPATION Protocol Nifedipine 60 mg 03/01/24 09:00 03/01/24 10:02 Nifedipine Xl 30 Mg Tabcr PO 03/31/24 08:59 60 mg QDAY JOSE EDUARDO Administration Ondansetron HCl 4 mg 02/29/24 21:04 Ondansetron Inj 2 Mg/Ml Inj 2 Ml IV 03/30/24 21:03 Q6H PRN NAUSEA OR VOMITING Protocol Vitamin B Complex/Vit C/Folic Acid 1 tab 03/01/24 09:00 03/01/24 10:02 Vit B12/Vit C/Fa (Nephrovite) Tablet PO 03/31/24 08:59 1 tab QDAY JOSE EDUARDO Administration Plan A 68 year old male with significant past medical history of Hypertension, ESRD on HD [Thursday/Thursday], hypothyroidism, diabetes mellitus on insulin presented to the hospital with chief complaints of fever since 2 to 3 weeks and admitted for Right lung consolidation to R/O Cocci vs TB vs Malignancy # Fever # Right upper lobe consolidation # To rule out cocci versus TB versus malignancy -Presented to the hospital with complaints of fever since 2 weeks associated with chills and rigors -Endorsing night sweats since 2 days before the age of admission. Denies shortness of breath and endorsed occasional cough with mucoid sputum. -Tested negative for skin tuberculin test twice in the last 6 months -In the ED, patient had a febrile episode of 100.3 ?F -Vitals are stable and patient is maintaining saturations well on room air -CBC is unremarkable except for mild anemia. Procalcitonin is 1.24, lactate is 0.8 -Chest x-ray showed right upper lobe consolidation and CT chest showed cavitatory lesion in right upper lobe - Cocci IgM negative, pending Cocci IgG Plan -Started on ceftriaxone 1 g IV daily and doxycycline 100 mg p.o. twice daily [02/28- -Gram stain sputum shows rare WBCs with rare gram-negative rods. Final sputum cultures pending -TB QuantiFERON pending -Blood cultures pending -Pending Legionella -Pending AFB -Infectious Disease consulted, appreciate recommendations # Insulin-dependent diabetes mellitus HbA1c 7.4 Patient is using Tresiba 18 Units and lispro 6,12,6 units at home -Started on insulin sliding scale and Insulin Glargine 10 units SC -Hypoglycemia protocol in place #Hypertensive Emergency BP this AM was 181/94 Troponins elevated, trending Patient is on nifedipine 60 Qday at home, and hydralazine 25 TID - Restarting patient's home nifedipine 60 mg Qday # ESRD on HD # Mild hyponatremia Patient was started on HD 3 months back, 2 days/week Thursday and Thursday, last dialysis is on 02/29/2024 Pt is followed by Dr. Dinh BUN is 22 and creatinine is 3 on admission Corrected Na 130 -Dr. Dinh following, plan for dialysis Thursday -Avoid nephrotoxic medications and renally dose medications -Monitor input and output, Fluid restrict 1500cc/day -Monitor electrolytes # Elevated troponins Troponin at the time of admission is 0.103, likely due to ESRD BNP is 199 - continue to trend symptoms, labs #Elevated TSH TSH resulted 12.68, no free T4 ordered - Free T4 03/02 pending # Mild Normocytic Normochromic Anemia # ?Anemia due to ESRD -Hemoglobin at the time of admission is 11.9, MCV, MCH and MCHC are within normal limits -Iron panel and ferritin was ordered, follow-up with results -Replete stores as needed -Started on Nephro-[facility] Maintenance: Dispo: MedSurg DVT ppx: Heparin GI ppx: Not needed Diet: Renal, low carbohydrate consistent IV lines: Peripheral Code status: Full Patient plan of care was discussed with the attending physician, Dr. Apoorva Handy D.O. PGY1 Anesthesiology Attending Provider Attestation/Addendum I attest that I was physically present for the evaluation, physical examination, lab and imaging review of the patient with the residents. I discussed the case with the residents and agree with the findings and plans of care as documented above. Patient is an overnight admission for management of febrile illness and right upper lobe cavitatory lesion. Denies febrile episodes after admission. Currently on room air, saturating well. Cocci, TB quantiferon, sputum culture, AFB, Legionella, Blood cultures have been ordered and pending. Also awaiting ID consult. Continues to on IV rocephin and oral Doxycycline. Nephrology following for Hemodialysis. Insulin and antihypertensives in place for diabetes and HTN. Velma Guerin MD
[2024-03-01 16:10] LABS: Cult AFB Sendout- Sputum* See Sep Rpt
--- NOTE | 2024-03-01 22:50 | PC.RT ---
RT in room with sterile cup for AFB collection, pt asked for a little time to produce adequate amount of sputum for sample as he had small amount of secretions.
[2024-03-02] VITALS (10 sets, daily range): BP systolic 145–176; BP diastolic 74–96; PULSE 65–96; RESP 14–18; TEMP 36.4–37.3; O2SAT 96–100
[2024-03-02 01:31] LABS: Ferritin 921 ng/mL (10.5-307.3)
[2024-03-02 02:33] LABS: Cult AFB Sendout- Sputum* See Sep Rpt
[2024-03-02] MEDS: ACETAMINOPHEN 325 MG TABLET 650 MG PO ×4 (04:11→21:49)
[2024-03-02 06:12] LABS: Basophils # (Auto) 0.1 Thou/mm3 (0.0-0.2); Basophils % (Auto) 2 % (0-2.5); Eosinophils # (Auto) 0.1 Thou/mm3 (0.0-0.5); Eosinophils % (Auto) 1 % (0-10); Hemoglobin 11.9 g/dL (13.5-16.0); Immature Granulocytes % (Auto) 4 % (0-0); Immature Granulocytes Auto 0.26 Thou/mm3 (0.00-0.00); Lymphocytes # (Auto) 0.5 Thou/mm3 (1.0-4.8); Lymphocytes % (Auto) 8 % (10-50); Mean Corpuscular HGB Conc 32.2 g/dl (31.0-37.0); Mean Corpuscular Hemoglobin 26.7 pg (25.0-35.0); Mean Corpuscular Volume 83 fL (80-100); Monocytes # (Auto) 0.9 Thou/mm3 (0.0-0.8); Monocytes % (Auto) 13 % (0-12); Neutrophils # (Auto) 4.8 Thou/mm3 (1.8-7.7); Neutrophils % (Auto) 73 % (37-80); Nucleated Red Blood Cell # 0.02 Thou/mm3 (0.00-0.00); Nucleated Red Blood Cell % 0 /100 WBC (0); Platelet Count 195 Thou/mm3 (140-440); RDW Standard Deviation 57.6 fL (35.1-43.9); Red Blood Count 4.46 Miln/mm3 (4.50-5.90); White Blood Count 6.6 Thou/mm3 (3.8-10.6)
[2024-03-02 06:56] LABS: Alanine Aminotransferase < 7 U/L (10-49); Albumin, Serum 3.5 gm/dL (3.4-4.8); Albumin/Globulin Ratio 0.6 (1.2-2.2); Alkaline Phosphatase 117 U/L (46-116); Anion Gap 10 (7-16); Aspartate Amino Transferase 18 U/L (0-34); BUN/Creatinine Ratio 9 Ratio (12-20); Bilirubin,Total 0.4 mg/dL (0.3-1.2); Blood Urea Nitrogen 36 mg/dL (9-23); Calcium 8.4 mg/dL (8.3-10.6); Calcium (Corrected) 8.8 mg/dL (8.5-10.1); Carbon Dioxide 22.3 mMol/L (20.0-31.0); Chloride 95 mMol/L (98-107); Creatinine (Component) 3.9 mg/dL (0.6-1.3); Estimated Creatinine Clearance 15.7 mL/min (>60); Free T4 (Free Thyroxine) 0.98 ng/dL (0.89-1.76); Globulin 5.6 gm/dL (2.3-3.5); Glucose 233 mg/dL (74-106); Osmolality,Calculated 270 (275-295); Phosphorous 4.3 mg/dL (2.4-5.1); Potassium 3.7 mMol/L (3.4-5.1); Sodium 127 mMol/L (136-145); Total Protein 9.1 gm/dL (5.7-8.2); eGFR 16 See Note
[2024-03-02 07:03] LABS: Hepatitis C Antibody Non Reactive (Non React)
[2024-03-02] MEDS: VIT B12/Vit C/FA (Nephrovite) TABLET 1 TAB PO (08:03)
[2024-03-02] MEDS: INSULIN GLARGINE (Lantus) 5 UNIT/0.05 ML (PER 5 UNITS) 10 UNIT SC ×2 (08:03→22:33)
[2024-03-02] MEDS: NIFEdipine XL 30 MG TABCR 60 MG PO (08:03)
[2024-03-02] MEDS: DOXYCYCLINE 100 MG TABLET PO ×2 (08:03→21:44)
[2024-03-02] MEDS: cefTRIAXone/D5w 1gm IV premix 50 ML IV (08:03)
[2024-03-02] MEDS: INSULIN LISPRO (AdmeLOG) 1 UNIT/0.01 ML UNIT SC ×3 (08:05→22:34)
--- NOTE | 2024-03-02 08:20 | ESPR_ITS ---
<Statement entered by Orion Helms MD - 03/02/24 17:01> Patient was seen and examined at bedside. Patient denied any chest pain however was mildly hypertensive this morning. His antihypertensive hydralazine was reduced to 75 3 times daily and continuing nifedipine. White count within normal limits. Kidney functions consistent with ESRD and patient will get dialysis per schedule for Thursday. Construction Helper, Dr. Dinh following the case. Blood sugars were elevated therefore we will increase Lantus 15 units daily and insulin sliding scale resistant. We are currently pending on sputum AFB and QuantiFERON TB. Cocci IgM was negative.All Labs and orders were reviewed. I saw and examined the patient, and I agree with current management stated by Dr Jp DO, PGY-1 Plan of care was discussed with the attending physician and resident physician. Disclaimer: Despite multiple revisions, due to the dictation software being used, the document bellow may not be free of grammatical errors including phonetic/typographic errors. However, this does not deter from our commitment to providing health care in the patient's best interest in mind. Dr. Analia MD, PGY 2 Documentation for date of: 03/02/24 Subjective Subjective Interval history: 03/01: No acute events overnight. Patient states that he only has fever and cough productive of clear sputum. Denies any hemoptysis, brown-green or yellow sputum. Vital signs today notable for blood pressure of 181/94, heart rate of 101. Afebrile, saturating 96% on room air. labs today show sodium level 127. BUN 26, creatinine 3.5, EGFR 18. TSH 12.68, no free T4 ordered by night team, ordered for next morning. Coccidioides IgM antibody negative. Gram stain of sputum shows rare WBCs with rare gram-negative rods. Final sputum culture pending Currently pending QuantiFERON. This a.m. ordered AFB send out, consulted infectious disease, ordered Legionella. MRSA screen, blood culture pending. Restarted home Nifedipine. Spoke with Dr. Dinh who states he is seeing the patient and is following. Will be scheduled for dialysis on Thursday. 03/02: No acute events overnight. Still hypertensive 169/96. Other vital signs are stable. CBC appears stable, WBC normal. Electrolytes significant for hyponatremia at 127, corrected 130. Glucose appears to be still high at 233. Urine negative, sputum Gram stain shows rare gram-negative rods, culture still pending. Blood cultures no growth within 24 hours. MRSA negative. Patient states that he feels better than when he came into the hospital, denies new symptoms. Coccidioides IgG negative today. Hepatitis C nonreactive HIV 1 and 2 nonreactive. Currently pending Legionella, QuantiFERON AFB. Dr Valenzuela changed IV Rocephin to p.o. cefuroxime. Suggest that we wait for AFBs as PPD and QuantiFeron can be falsely negative for acute disease. If AFB is negative then can go home in a.m. with oral antibiotics and follow-up with outpatient primary Exam Vital Signs Temp Pulse Resp BP Pulse Ox O2 Del Method O2 Flow Rate 99.1 F 65 18 174/94 H 100 Room Air 1 03/02/24 04:00 03/02/24 08:03 03/02/24 04:00 03/02/24 08:03 03/02/24 04:00 03/02/24 04:00 02/29/24 21:33 Narrative Exam General: Awake. Moderately built and nourished. HEENT: Normocephalic, atraumatic, mucous membranes moist. Heart: Regular rate and rhythm, no murmurs. Lungs: Clear to auscultation with no wheezing or crackles. Abdomen: Soft, nondistended, nontender, positive bowel sounds. ?No guarding or rebound tenderness. Neurologic: Alert and oriented x3, no gross neurological deficit, and patient able to move all 4 extremities. Extremities: No edema. Skin: No rash or ecchymoses. Objective Labs 03/04/24 04:17 03/04/24 04:17 Labs: Laboratory Results - last 24 hr 02/29/24 03/01/24 03/01/24 18:50 05:05 14:25 WBC RBC Hgb Hct MCV MCH MCHC RDW Std Deviation Plt Count Neut % (Auto) Lymph % (Auto) Bertie % (Auto) Eos % (Auto) Baso % (Auto) Neut # (Auto) Lymph # (Auto) Bertie # (Auto) Eos # (Auto) Baso # (Auto) Immature Gran # (Auto) Absolute Nucleated RBC Immature Gran % Nucleated RBC % Sodium Potassium Chloride Carbon Dioxide Anion Gap BUN Creatinine Estim Creat Clear Calc eGFR BUN/Creatinine Ratio Glucose Calculated Osmolality Calcium Corrected Calcium Phosphorus Magnesium Iron 52 L Iron Saturation 25 Unsat Iron Binding 152 L Ferritin 921 H Total Bilirubin AST ALT Alkaline Phosphatase Troponin I 0.100 H* Total Protein Albumin Globulin Albumin/Globulin Ratio TSH 12.68 H Free T4 Ur Random Sodium 49.0 Coccidioides IgM Ab Negative Hepatitis C Antibody 03/02/24 05:25 WBC 6.6 RBC 4.46 L Hgb 11.9 L Hct 37.0 L MCV 83 MCH 26.7 MCHC 32.2 RDW Std Deviation 57.6 H Plt Count 195 Neut % (Auto) 73 Lymph % (Auto) 8 L Bertie % (Auto) 13 H Eos % (Auto) 1 Baso % (Auto) 2 Neut # (Auto) 4.8 Lymph # (Auto) 0.5 L Bertie # (Auto) 0.9 H Eos # (Auto) 0.1 Baso # (Auto) 0.1 Immature Gran # (Auto) 0.26 H Absolute Nucleated RBC 0.02 H Immature Gran % 4 H Nucleated RBC % 0 Sodium 127 L Potassium 3.7 Chloride 95 L Carbon Dioxide 22.3 Anion Gap 10 BUN 36 H Creatinine 3.9 H Estim Creat Clear Calc 15.7 L eGFR 16 L BUN/Creatinine Ratio 9 L Glucose 233 H Calculated Osmolality 270 L Calcium 8.4 Corrected Calcium 8.8 Phosphorus 4.3 Magnesium 2.0 Iron Iron Saturation Unsat Iron Binding Ferritin Total Bilirubin 0.4 AST 18 ALT < 7 L Alkaline Phosphatase 117 H D Troponin I Total Protein 9.1 H Albumin 3.5 Globulin 5.6 H Albumin/Globulin Ratio 0.6 L TSH Free T4 0.98 Ur Random Sodium Coccidioides IgM Ab Hepatitis C Antibody Non Reactive Quality Measures Quality Measures none Advance care planning discussed with:: patient Assessment & Plan Assessment Current Active Medications: Generic Name Dose Route Start Last Admin Trade Name Freq PRN Reason Stop Dose Admin Acetaminophen 650 mg 03/01/24 08:56 03/02/24 04:11 Acetaminophen 325 Mg Tablet PO 03/30/24 21:03 650 mg Q6H PRN Administration Fever >100.3 Dextrose 25 ml 03/01/24 00:49 Dextrose 50%-Water Inj 50 Ml Syringe IV 03/31/24 00:48 Q15MIN PRN BG 50-70 responsive npo pt Dextrose 50 ml 03/01/24 00:49 Dextrose 50%-Water Inj 50 Ml Syringe IV 03/31/24 00:48 Q15MIN PRN BG <50 OR BG <70 & pt unresponsive Doxycycline Hyclate 100 mg 02/29/24 23:45 03/02/24 08:03 Doxycycline 100 Mg Tablet PO 03/07/24 23:44 100 mg BID JOSE EDUARDO Administration Glucagon 1 mg 03/01/24 00:49 Glucagon Inj 1 Mg Vial IM Q15MIN PRN BG <70, and no IV access Heparin Sodium (Porcine) 5,000 unit 02/29/24 22:00 03/02/24 05:19 Heparin Sod Inj 5000 Unit/Ml Vial SC 03/14/24 21:59 Not Given Q8HR JOSE EDUARDO Ceftriaxone Sodium/Dextrose 50 mls @ 100 mls/hr 03/01/24 09:00 03/02/24 08:03 Rocephin/D5w 1gm Iv Premix IV 03/08/24 08:59 100 mls/hr QAM JOSE EDUARDO Administration Insulin Glargine 10 unit 02/29/24 22:00 03/02/24 08:03 Insulin Glargine (Lantus) 5 Unit/0.05 Ml (Per 5 Units) SC 03/30/24 21:59 10 unit QDAY JOSE EDUARDO Administration Insulin Human Lispro 0 unit 03/01/24 11:30 03/02/24 08:05 Insulin Lispro (Admelog) 1 Unit/0.01 Ml Unit SC 03/31/24 11:29 2 unit AC JOSE EDUARDO Administration Protocol Magnesium Hydroxide 30 ml 02/29/24 21:04 Milk Of Magnesia Susp 30 Ml Udc PO 03/30/24 21:03 QDAY PRN CONSTIPATION Protocol Nifedipine 60 mg 03/01/24 09:00 03/02/24 08:03 Nifedipine Xl 30 Mg Tabcr PO 03/31/24 08:59 60 mg QDAY JOSE EDUARDO Administration Ondansetron HCl 4 mg 02/29/24 21:04 Ondansetron Inj 2 Mg/Ml Inj 2 Ml IV 03/30/24 21:03 Q6H PRN NAUSEA OR VOMITING Protocol Vitamin B Complex/Vit C/Folic Acid 1 tab 03/01/24 09:00 03/02/24 08:03 Vit B12/Vit C/Fa (Nephrovite) Tablet PO 03/31/24 08:59 1 tab QDAY JOSE EDUARDO Administration Plan A 68 year old male with significant past medical history of Hypertension, ESRD on HD [Thursday/Thursday], hypothyroidism, diabetes mellitus on insulin presented to the hospital with chief complaints of fever since 2 to 3 weeks and admitted for Right lung consolidation to R/O Cocci vs TB vs Malignancy # Fever # Right upper lobe consolidation # To rule out cocci versus TB versus malignancy -Presented to the hospital with complaints of fever since 2 weeks associated with chills and rigors -Endorsing night sweats since 2 days before the age of admission. Denies shortness of breath and endorsed occasional cough with mucoid sputum. -Tested negative for skin tuberculin test twice in the last 6 months -In the ED, patient had a febrile episode of 100.3 ?F -Vitals are stable and patient is maintaining saturations well on room air -CBC is unremarkable except for mild anemia. Procalcitonin is 1.24, lactate is 0.8 -Chest x-ray showed right upper lobe consolidation and CT chest showed cavitatory lesion in right upper lobe - Cocci IgM negative, negative cocci IgG Plan -Started on ceftriaxone 1 g IV daily 02/28-03/02, DCed by ID -Doxycycline 100 mg p.o. twice daily [02/28- -Cefuroxime 250 p.o. twice daily 03/02? -Gram stain sputum shows rare WBCs with rare gram-negative rods. Final sputum cultures pending -TB QuantiFERON pending -Blood cultures pending -Pending Legionella -Pending AFB -Infectious Disease consulted, appreciate recommendations # Insulin-dependent diabetes mellitus HbA1c 7.4 Patient is using Tresiba 18 Units and lispro 6,12,6 units at home Given 5 Glargine addtionally this AM Adjusted to insuline Glargine 15 units SC Sliding scale set to resistant #Hypertensive Emergency BP this AM was 181/94 Troponins elevated, trending Patient is on nifedipine 60 Qday at home, and hydralazine 25 TID - home nifedipine 60 mg Qday - Restarting patient's home hydralazine 25 TID as pressures remain high # ESRD on HD # Mild hyponatremia Patient was started on HD 3 months back, 2 days/week Thursday and Thursday, last dialysis is on 02/29/2024 Pt is followed by Dr. Dinh BUN is 22 and creatinine is 3 on admission Corrected Na 130 -Dr. Fabrizio following, plan for dialysis Thursday -Avoid nephrotoxic medications and renally dose medications -Monitor input and output, Fluid restrict 1500cc/day -Monitor electrolytes # Elevated troponins Troponin at the time of admission is 0.103, likely due to ESRD BNP is 199 - continue to trend symptoms, labs #Hypothyroidism TSH resulted 12.68 Free T4 0.98 - restarting home levothyroxine # Mild Normocytic Normochromic Anemia # Anemia due to ESRD -Hemoglobin at the time of admission is 11.9, MCV, MCH and MCHC are within normal limits -Iron panel and ferritin was ordered, follow-up with results -Replete stores as needed -Started on Nephro-[facility] Maintenance: Dispo: MedSurg DVT ppx: Heparin GI ppx: Not needed Diet: Renal, low carbohydrate consistent IV lines: Peripheral Code status: Full Patient plan of care was discussed with the attending physician, Dr. Apoorva Handy D.O. PGY1 Anesthesiology Attending Provider Attestation/Addendum I attest that I was physically present for the evaluation, physical examination, lab and imaging review of the patient with the residents. I discussed the case with the residents and agree with the findings and plans of care as documented above. At bedside, patient continues to be on room air. Denies new fever episodes. Cocci IgM and IgG came negative. Pending blood cultures, TB quantiferon, sputum AFB, legionella. Antibiotics changes as recommended by ID. Adjusted Insulin and Antihypertensives regimen. Velma Guerin MD
--- NOTE | 2024-03-02 09:41 | PC.SS ---
SS follow up note; Pending ID rec's as well as quantiferon test pending. Dr Prieto is following.
[2024-03-02] MEDS: Milk Of Magnesia Susp 30 ML UDC PO (12:24)
[2024-03-02] MEDS: ASPIRIN EC 81 MG TABEC PO (12:24)
[2024-03-02] MEDS: LEVOTHYROXINE SODIUM 25 MCG TABLET 50 MCG PO (12:24)
[2024-03-02] MEDS: INSULIN GLARGINE (Lantus) 5 UNIT/0.05 ML (PER 5 UNITS) SC (12:25)
[2024-03-02] MEDS: HEPARIN SOD INJ 5000 UNIT/ML VIAL SC (13:16)
[2024-03-02] MEDS: hydrALAZINE HCL 25 MG TABLET PO (13:16)
[2024-03-02 13:48] LABS: Cult AFB Sendout- Sputum* See Sep Rpt
[2024-03-02] MEDS: hydrALAZINE HCL 25 MG TABLET 50 MG PO (14:14)
--- NOTE | 2024-03-02 14:34 | ESPR_ITS ---
Subjective Subjective Interval history: cocci neg locally, so would check afb's and try empiric abx. with no fever for 24h. will change iv rocephin to po cefuroxime as this may be tb/ca/cocci or bacterial. it is hard to know. no hemoptysis and no prior pos ppd was neg x 2 [employer] so tb less likely, but ppd and qtf can be falsely neg in acute disease. if afb's neg, then he can go home in am on po abx and f/u with outpt primary Exam Vital Signs Temp Pulse Resp BP Pulse Ox O2 Del Method O2 Flow Rate 98.3 F 84 16 176/90 H 97 Room Air 1 03/02/24 12:00 03/02/24 14:14 03/02/24 12:00 03/02/24 14:14 03/02/24 12:00 03/02/24 12:00 03/02/24 08:00 Narrative Exam no distress. here for fever on and off for weeks but no fever here on minimal O2 at 1lpm. uses home O2 on prn basis per of many years. she is the primary historian Objective - Internal Medicine Labs 03/02/24 05:25 03/02/24 05:25 Labs: Laboratory Results - last 24 hr 03/01/24 03/01/24 03/02/24 05:05 14:25 05:25 WBC 6.6 RBC 4.46 L Hgb 11.9 L Hct 37.0 L MCV 83 MCH 26.7 MCHC 32.2 RDW Std Deviation 57.6 H Plt Count 195 Neut % (Auto) 73 Lymph % (Auto) 8 L [place] % (Auto) 13 H Eos % (Auto) 1 Baso % (Auto) 2 Neut # (Auto) 4.8 Lymph # (Auto) 0.5 L [place] # (Auto) 0.9 H Eos # (Auto) 0.1 Baso # (Auto) 0.1 Immature Gran # (Auto) 0.26 H Absolute Nucleated RBC 0.02 H Immature Gran % 4 H Nucleated RBC % 0 Sodium 127 L Potassium 3.7 Chloride 95 L Carbon Dioxide 22.3 Anion Gap 10 BUN 36 H Creatinine 3.9 H Estim Creat Clear Calc 15.7 L eGFR 16 L BUN/Creatinine Ratio 9 L Glucose 233 H Calculated Osmolality 270 L Calcium 8.4 Corrected Calcium 8.8 Phosphorus 4.3 Magnesium 2.0 Ferritin 921 H Total Bilirubin 0.4 AST 18 ALT < 7 L Alkaline Phosphatase 117 H D Total Protein 9.1 H Albumin 3.5 Globulin 5.6 H Albumin/Globulin Ratio 0.6 L Free T4 0.98 Ur Random Sodium 49.0 Hepatitis C Antibody Non Reactive Assessment & Plan A&P Narrative cavitary lung disease with neg bc so far from 02/28 ckd 5on hd 2x per week per pt and dm II. htn on rx low thyroid. on replacement hld on meds renal mass on ct in 2022 c/o noted f/u imaging prior u/s of kidneys neg in 2020 find out if he had a ppd before starting hd as best we can tell ,as best we can tell, he did and it was neg, same for prior cxr, if matildeu can find the prior rxr , and the cxr was neg at in september, then the lesion is new and he may need repeat cocci as well as a bal to r/o CA. home ok on po abx for remainder of 7-10d as early as tomorrow if repeat cocci obtained and remains afebrile. Time Spent With Patient Time: Total time spent is greater than 50% in coordination of care (as documented) at patient's floor/unit and/or counseling patient:
[2024-03-02 14:35] LABS: Cocci Serology, IgG Negative (Negative)
[2024-03-02 14:48] LABS: HIV (1&2) Antibody Rapid Non-Reactive
--- NOTE | 2024-03-02 17:57 | ESCONSULT_ITS ---
<Statement entered by Maycol Valenzuela MD - 03/05/24 09:23> pt seen with resident. all findings confirmed HPI Data of Consult Requesting Physician: Tab Nolasco DO Admitting Provider: Cody Galan MD Attending Provider: Tab Nolasco DO Primary Care Provider: Physician No Primary/Family Consult Narrative History of present illness: 68-year-old man with past medical history of ESRD on hemodialysis 2 times a week Thursday/Thursday, hypothyroidism, diabetes mellitus type 2 and hypertension who was admitted to [facility] due to fever and right upper lobe consolidation chest x-ray showed right upper lobe consolidation and chest CT showed cavitary lesions in the right upper lobe for which infectious disease was consulted. Per patient's at the bedside his symptoms started around 2 weeks ago consistent with fever, chills and night sweats for which she decided to bring him to the hospital. The patient denied chest pain, cough or any other symptoms different than the mentioned above. Pertinent labs:CBC no leukocytosis, Pro-Delta 1.24, UA did not show UTI, cocci IgG negative, cocci IgM negative, hep C nonreactive, HIV 1 and 2 nonreactive, pending AFB sputum culture, QuantiFERON and urine Legionella. Imaging: Chest x-ray showed pneumonia in the right upper lobe, CT chest showed extensive cavitary infiltrate in the right upper lobe primarily posterior segment scattered areas of mild infiltrate throughout the left lung and at the right lung base. Past medical history:ESRD on HD, hypothyroidism, diabetes mellitus type 2 and hypertension Past surgical history: Cholecystectomy Family history: None relevant Social history: Lives with his at home, used to smoke cigarettes many years ago around 30 years he quit, denied recreational drugs or alcohol Travel history: None relevant Allergies: No known allergies Immunizations: Last tetanus vaccine 7 years ago. cc:: cc: Tab Nolasco DO Review of Systems Review of Systems Systems Reviewed: All systems reviewed, normal except as documented Exam Vital Signs Temp Pulse Resp BP Pulse Ox O2 Del Method O2 Flow Rate 97.5 F 85 14 145/74 H 98 Room Air 1 03/02/24 16:00 03/02/24 16:00 03/02/24 16:03/02/24 16:03/02/24 16:03/02/24 16:03/02/24 08:00 Narrative Exam General: No acute distress, frail, on O2 1Lt per nsc, alert, interactive HEENT: NC/AT, PERRL, EOMI, Good conjugate gaze, moist mucous membranes, oropharynx clear. Neck: Supple, No masses, No adenopathy, carotid pulse 2+ bilaterally without bruits, No JVD, normal range of motion. Chest: Symmetrical, atraumatic, and with equal expansion , Nontender on palpation no deformity and no crepitus. CVS: S1 and S2 present, Regular rate and rhythm, No murmurs, rubs or gallops perceived during auscultation. Lungs: Normal respiratory effort, CTAB, no wheezing, rhonchi or rales perceived during auscultation, No intercostal or subcostal retraction. Abdomen : Soft, no tenderness to palpation, no guarding ,no rebound, +BS, no organomegaly. Extremities: No edema, warm well perfused,cap refill less than 2, +2 dp equal bilaterally, able to move all 4 extremities spontaneously. Skin: Intact, no rashes, no lesions, no erythema or jaundice noted Neuro: AOx4, no focal neurologic deficits noted, GCS 15 Psych: Appropriate mood and affect. Results Labs 03/02/24 05:25 03/02/24 05:25 Labs: Short CBC 03/02/24 Range/Units 05:25 WBC 6.6 (3.8-10.6) Thou/mm3 Hgb 11.9 L (13.5-16.0) g/dL Hct 37.0 L (41.0-53.0) % Plt Count 195 (140-440) Thou/mm3 BMP 03/02/24 05:25 Sodium 127 L Potassium 3.7 Chloride 95 L Carbon Dioxide 22.3 BUN 36 H Creatinine 3.9 H Glucose 233 H Calcium 8.4 Liver Function 03/02/24 Range/Units 05:25 Total Bilirubin 0.4 (0.3-1.2) mg/dL AST 18 (0-34) U/L ALT < 7 L (10-49) U/L Alkaline Phosphatase 117 H D (46-116) U/L Albumin 3.5 (3.4-4.8) gm/dL Quality Measures Quality Measures none Advance care planning discussed with:: spouse Medications Home Medications and Allergies Home Medications ?Medication ?Instructions ?Recorded ?Confirmed ?Type aspirin 81 mg tablet,delayed 81 mg PO 1XD 02/29/24 02/29/24 History release atorvastatin 80 mg tablet 80 mg PO QDAY 02/29/24 02/29/24 History furosemide 40 mg tablet 40 mg PO BID 02/29/24 02/29/24 History hydralazine 25 mg tablet 75 mg PO TID 02/29/24 03/02/24 History levothyroxine 50 mcg tablet 50 mcg PO QDAY 02/29/24 02/29/24 History nifedipine 60 mg tablet,extended 60 mg PO 1XD 02/29/24 02/29/24 History release omeprazole 20 mg capsule,delayed 20 mg PO 1XD 02/29/24 02/29/24 History release sevelamer carbonate 800 mg tablet 800 mg PO TID 02/29/24 02/29/24 History Allergies Allergy/AdvReac Type Severity Reaction Status Date / Time No Known Allergies Allergy Verified 07/28/22 16:17 Visit Medications Acetaminophen (Acetaminophen 325 Mg Tablet) 650 mg PO Q6H PRN PRN Reason: Fever >100.3 Stop: 03/30/24 21:03 Last Admin: 03/02/24 10:22 Dose: 650 mg Aspirin (Aspirin Ec 81 Mg Tabec) 81 mg PO QDAY [facility] Stop: 04/01/24 10:59 Last Admin: 03/02/24 12:24 Dose: 81 mg Atorvastatin Calcium (Atorvastatin Calcium 20 Mg Tablet) 80 mg PO HS [facility] Stop: 04/01/24 20:59 Cefuroxime Axetil (Cefuroxime Axetil 250 Mg Tablet) 250 mg PO BID [facility] Stop: 03/09/24 20:59 Dextrose (Dextrose 50%-Water Inj 50 Ml Syringe) 25 ml IV Q15MIN PRN PRN Reason: BG 50-70 responsive npo pt Stop: 03/31/24 00:48 Dextrose (Dextrose 50%-Water Inj 50 Ml Syringe) 50 ml IV Q15MIN PRN PRN Reason: BG <50 OR BG <70 & pt unresponsive Stop: 03/31/24 00:48 Doxycycline Hyclate (Doxycycline 100 Mg Tablet) 100 mg PO BID [facility] Stop: 03/07/24 23:44 Last Admin: 03/02/24 08:03 Dose: 100 mg Glucagon (Glucagon Inj 1 Mg Vial) 1 mg IM Q15MIN PRN PRN Reason: BG <70, and no IV access Hydralazine HCl (Hydralazine Hcl 25 Mg Tablet) 75 mg PO TID [facility] Stop: 04/01/24 21:59 Insulin Glargine (Insulin Glargine (Lantus) 5 Unit/0.05 Ml (Per 5 Units)) 15 unit SC QDAY [facility] Stop: 04/02/24 08:59 Insulin Human Lispro (Insulin Lispro (Admelog) 1 Unit/0.01 Ml Unit) 0 unit SC [facility]; Protocol Stop: 03/31/24 11:29 Last Admin: 03/02/24 17:47 Dose: Not Given Levothyroxine Sodium (Levothyroxine Sodium 25 Mcg Tablet) 50 mcg PO [facility] Stop: 04/01/24 10:59 Last Admin: 03/02/24 12:24 Dose: 50 mcg Magnesium Hydroxide (Milk Of Magnesia Susp 30 Ml Udc) 30 ml PO QDAY PRN; Protocol PRN Reason: CONSTIPATION Stop: 03/30/24 21:03 Last Admin: 03/02/24 12:24 Dose: 30 ml Nifedipine (Nifedipine Xl 30 Mg Tabcr) 60 mg PO QDAY [facility] Stop: 03/31/24 08:59 Last Admin: 03/02/24 08:03 Dose: 60 mg Ondansetron HCl (Ondansetron Inj 2 Mg/Ml Inj 2 Ml) 4 mg IV Q6H PRN; Protocol PRN Reason: NAUSEA OR VOMITING Stop: 03/30/24 21:03 Vitamin B Complex/Vit C/Folic Acid (Vit B12/Vit C/Fa (Nephrovite) Tablet) 1 tab PO QDAY [facility] Stop: 03/31/24 08:59 Last Admin: 03/02/24 08:03 Dose: 1 tab Discontinued Medications Acetaminophen (Acetaminophen 325 Mg Tablet) 650 mg PO X1 ONE Stop: 02/29/24 20:16 Last Admin: 02/29/24 20:31 Dose: 650 mg Acetaminophen (Acetaminophen 325 Mg Tablet) 650 mg PO Q6H PRN PRN Reason: Fever >101.5 Stop: 03/30/24 21:03 Last Admin: 03/01/24 08:01 Dose: 650 mg Acetaminophen (Acetaminophen 325 Mg Tablet) 650 mg PO X1 ONE Stop: 03/02/24 13:09 Last Admin: 03/02/24 17:44 Dose: 650 mg Heparin Sodium (Porcine) (Heparin Sod Inj 5000 Unit/Ml Vial) 5,000 unit SC Q8HR [facility] Stop: 03/14/24 21:59 Last Admin: 03/02/24 13:16 Dose: 5,000 unit Hydralazine HCl (Hydralazine Hcl 25 Mg Tablet) 25 mg PO TID [facility] Stop: 04/01/24 13:59 Last Admin: 03/02/24 13:16 Dose: 25 mg Hydralazine HCl (Hydralazine Hcl 25 Mg Tablet) 50 mg PO X1 ONE Stop: 03/02/24 13:36 Last Admin: 03/02/24 14:14 Dose: 50 mg Ceftriaxone Sodium/Dextrose (Rocephin/D5w 1gm Iv Premix) 50 mls @ 100 mls/hr IV X1 ONE Stop: 02/29/24 18:24 Last Infusion: 02/29/24 20:10 Dose: Infused Ceftriaxone Sodium/Dextrose (Rocephin/D5w 1gm Iv Premix) 50 mls @ 100 mls/hr IV DAILY@2100 [facility] Stop: 03/08/24 20:59 Ceftriaxone Sodium/Dextrose (Rocephin/D5w 1gm Iv Premix) 50 mls @ 100 mls/hr IV QAM [facility] Stop: 03/08/24 08:59 Last Admin: 03/02/24 08:03 Dose: 100 mls/hr Insulin Glargine (Insulin Glargine (Lantus) 5 Unit/0.05 Ml (Per 5 Units)) 10 unit SC QDAY [facility] Stop: 03/30/24 21:59 Last Admin: 03/02/24 08:03 Dose: 10 unit Insulin Glargine (Insulin Glargine (Lantus) 5 Unit/0.05 Ml (Per 5 Units)) 5 unit SC X1 ONE Stop: 03/02/24 08:24 Last Admin: 03/02/24 12:25 Dose: 5 unit Insulin Human Lispro (Insulin Lispro (Admelog) 1 Unit/0.01 Ml Unit) 0 unit SC [facility]; Protocol Stop: 03/31/24 07:29 Last Admin: 03/01/24 08:01 Dose: 2 unit Insulin Human Lispro (Insulin Lispro (Admelog) 1 Unit/0.01 Ml Unit) 0 unit SC AC [facility]; Protocol Stop: 03/31/24 11:29 Last Admin: 03/02/24 08:05 Dose: 2 unit Pantoprazole Sodium (Pantoprazole 40 Mg Tablet) 40 mg PO QDAY [facility] Stop: 03/31/24 08:59 Sodium Chloride (Sodium Chloride Rt 10% 15 Ml Nebu) 5 ml INH X1 ONE Stop: 02/29/24 21:05 Last Admin: 02/29/24 21:31 Dose: Not Given Sodium Chloride (Sodium Chloride Rt 10% 15 Ml Nebu) 5 ml INH X1 ONE Stop: 03/01/24 12:42 Sodium Chloride (Sodium Chloride Rt 10% 15 Ml Nebu) 5 ml INH X1 ONE Stop: 03/01/24 13:37 Assessment & Plan Plan 68-year-old man with past medical history of ESRD on hemodialysis 2 times a week Thursday/Thursday, hypothyroidism, diabetes mellitus type 2 and hypertension who was admitted to [facility] due to fever and right upper lobe consolidation chest x-ray showed right upper lobe consolidation and chest CT showed cavitary lesions in the right upper lobe for which infectious disease was consulted. Per patient's at the bedside his symptoms started around 2 weeks ago consistent with fever, chills and night sweats for which she decided to bring him to the hospital. The patient denied chest pain, cough or any other symptoms different than the mentioned above. #Cavitary lesions Patient stated that has 2 negative PPD before starting dialysis Cocci IgG and IgM was negative, pending AFB Due to patient remains afebrile will recommend to DC Rocephin and switch to p.o. cefuroxime ? If AFB is negative and repeated cocci can be discharged on p.o. antibiotics to complete 7-10 days and follow-up with PCP. Patient discussed with my attending Dr Bianca Jones MD PGY-3 Disclaimer: Despite multiple revisions, due to the dictation software being used, the document bellow may not be free of grammatical errors including phonetic/typographic errors. However, this does not deter from our commitment to providing health care in the patient's best interest in mind.
[2024-03-02] MEDS: ATORVASTATIN CALCIUM 20 MG TABLET 80 MG PO (21:44)
[2024-03-02] MEDS: cefuroxime axetiL 250 MG TABLET PO (21:44)
[2024-03-02] MEDS: hydrALAZINE HCL 25 MG TABLET 75 MG PO (21:48)
[2024-03-03] VITALS (25 sets, daily range): BP systolic 103–189; BP diastolic 62–100; PULSE 77–107; RESP 16–20; TEMP 36.2–36.8; O2SAT 96–100; BMI 21.4
[2024-03-03] MEDS: ACETAMINOPHEN 325 MG TABLET 650 MG PO ×2 (04:22→12:17)
[2024-03-03] MEDS: hydrALAZINE HCL 25 MG TABLET 75 MG PO ×2 (04:23→13:34)
--- NOTE | 2024-03-03 04:23 | PC.NURSE ---
Patient unable to sleep, restless, c/o BLE cramps, he reports symptoms are not new. Patient reports pain 6 out of a pain scale of (0-10) he wants to continue taking tylenol for his headache md was made aware. BP 176/[address] Hammer made aware, order to give schedule hydralazine early. Non pharmacological pain mgmt provided. Patient is alert and oriented x3.
[2024-03-03 06:11] LABS: Basophils # (Auto) 0.1 Thou/mm3 (0.0-0.2); Basophils % (Auto) 1 % (0-2.5); Eosinophils # (Auto) 0.1 Thou/mm3 (0.0-0.5); Eosinophils % (Auto) 1 % (0-10); Hemoglobin 12.8 g/dL (13.5-16.0); Immature Granulocytes % (Auto) 3 % (0-0); Immature Granulocytes Auto 0.24 Thou/mm3 (0.00-0.00); Lymphocytes # (Auto) 0.5 Thou/mm3 (1.0-4.8); Lymphocytes % (Auto) 7 % (10-50); Mean Corpuscular Hemoglobin 26.6 pg (25.0-35.0); Mean Corpuscular Volume 83 fL (80-100); Monocytes # (Auto) 1.2 Thou/mm3 (0.0-0.8); Monocytes % (Auto) 15 % (0-12); Neutrophils # (Auto) 5.5 Thou/mm3 (1.8-7.7); Neutrophils % (Auto) 72 % (37-80); Nucleated Red Blood Cell # 0.03 Thou/mm3 (0.00-0.00); Nucleated Red Blood Cell % 0 /100 WBC (0); Platelet Count 211 Thou/mm3 (140-440); RDW Standard Deviation 57.7 fL (35.1-43.9); Red Blood Count 4.82 Miln/mm3 (4.50-5.90); White Blood Count 7.6 Thou/mm3 (3.8-10.6)
[2024-03-03] MEDS: LEVOTHYROXINE SODIUM 25 MCG TABLET 50 MCG PO (06:28)
[2024-03-03 06:52] LABS: Alanine Aminotransferase < 7 U/L (10-49); Albumin, Serum 3.7 gm/dL (3.4-4.8); Albumin/Globulin Ratio 0.7 (1.2-2.2); Alkaline Phosphatase 135 U/L (46-116); Anion Gap 12 (7-16); Aspartate Amino Transferase 16 U/L (0-34); BUN/Creatinine Ratio 15 Ratio (12-20); Bilirubin,Total 0.3 mg/dL (0.3-1.2); Blood Urea Nitrogen 54 mg/dL (9-23); Calcium 8.6 mg/dL (8.3-10.6); Calcium (Corrected) 8.8 mg/dL (8.5-10.1); Carbon Dioxide 21.5 mMol/L (20.0-31.0); Chloride 94 mMol/L (98-107); Creatinine (Component) 3.6 mg/dL (0.6-1.3); Globulin 5.4 gm/dL (2.3-3.5); Glucose 150 mg/dL (74-106); Magnesium 2.5 mg/dL (1.6-2.6); Osmolality,Calculated 272 (275-295); Phosphorous 5.3 mg/dL (2.4-5.1); Sodium 127 mMol/L (136-145); Total Protein 9.1 gm/dL (5.7-8.2); eGFR 18 See Note
[2024-03-03] MEDS: INSULIN LISPRO (AdmeLOG) 1 UNIT/0.01 ML UNIT SC ×3 (08:02→20:16)
[2024-03-03] MEDS: INSULIN GLARGINE (Lantus) 5 UNIT/0.05 ML (PER 5 UNITS) 15 UNIT SC (08:02)
[2024-03-03] MEDS: cefuroxime axetiL 250 MG TABLET PO (08:03)
[2024-03-03] MEDS: NIFEdipine XL 30 MG TABCR 60 MG PO (08:03)
[2024-03-03] MEDS: DOXYCYCLINE 100 MG TABLET PO (08:03)
[2024-03-03] MEDS: ASPIRIN EC 81 MG TABEC PO (08:03)
[2024-03-03] MEDS: VIT B12/Vit C/FA (Nephrovite) TABLET 1 TAB PO (08:03)
[2024-03-03] MEDS: VALSARTAN 80 MG TABLET PO (12:17)
[2024-03-03] MEDS: SEVELAMER CARBONATE 800 MG TABLET PO ×2 (12:17→18:07)
[2024-03-03] MEDS: LEVOFLOXACIN 250 MG TABLET PO (12:17)
--- NOTE | 2024-03-03 13:47 | PC.SS ---
SS follow up note; AFB's are pending, possible discharge in 1-2 days.
[2024-03-03 14:35] LABS: Cocci Serology, IgM Negative (Negative)
--- NOTE | 2024-03-03 16:55 | ESPR_ITS ---
<Statement entered by Orion Helms MD - 03/03/24 21:15> Patient was seen and examined at the bedside. No acute overnight events were reported. QuantiFERON-TB came negative. Patient stated that he feels having mild cough however had no other active concerns. ID specialist recommended cephalexin given cultures recommend negative. Currently we are pending on AFB sputum results. We curb sided with educational resource coordinator, Dr. Hull who stated that most likely patient has bronchiectasis and advised to follow-up with AFB. We are repeating the cocci as per ID recommendations. Sputum grew Serratia and Enterobacter. We are currently continuing Levaquin per educational resource coordinator recommendations and discontinue doxycycline. Labs were unremarkable. Vitals showed elevated blood pressure therefore valsartan was added. Patient will get scheduled dialysis tomorrow. Sevelamer was added for hyperphosphatemia. All labs and orders were reviewed. I saw and examined the patient, and I agree with current management stated by Dr Jp PAUL ,PGY1. Plan of care was discussed with the attending physician and resident physician. Disclaimer: Despite multiple revisions, due to the dictation software being used, the document bellow may not be free of grammatical errors including phonetic/typographic errors. However, this does not deter from our commitment to providing health care in the patient's best interest in mind. Dr. Analia MD, PGY 2 Documentation for date of: 03/03/24 Subjective Subjective Interval history: 03/01: No acute events overnight. Patient states that he only has fever and cough productive of clear sputum. Denies any hemoptysis, brown-green or yellow sputum. Vital signs today notable for blood pressure of 181/94, heart rate of 101. Afebrile, saturating 96% on room air. labs today show sodium level 127. BUN 26, creatinine 3.5, EGFR 18. TSH 12.68, no free T4 ordered by night team, ordered for next morning. Coccidioides IgM antibody negative. Gram stain of sputum shows rare WBCs with rare gram-negative rods. Final sputum culture pending Currently pending QuantiFERON. This a.m. ordered AFB send out, consulted infectious disease, ordered Legionella. MRSA screen, blood culture pending. Restarted home Nifedipine. Spoke with Dr. Dinh who states he is seeing the patient and is following. Will be scheduled for dialysis on Thursday. 03/02: No acute events overnight. Still hypertensive 169/96. Other vital signs are stable. CBC appears stable, WBC normal. Electrolytes significant for hyponatremia at 127, corrected 130. Glucose appears to be still high at 233. Urine negative, sputum Gram stain shows rare gram-negative rods, culture still pending. Blood cultures no growth within 24 hours. MRSA negative. Patient states that he feels better than when he came into the hospital, denies new symptoms. Coccidioides IgG negative today. Hepatitis C nonreactive HIV 1 and 2 nonreactive. Currently pending Legionella, QuantiFERON AFB. Dr Valenzuela changed IV Rocephin to p.o. cefuroxime. Suggest that we wait for AFBs as PPD and QuantiFeron can be falsely negative for acute disease. If AFB is negative then can go home in a.m. with oral antibiotics and follow-up with outpatient primary 03/03: No acute events overnight. QuantiFERON negative this morning. Vital signs notable for 176/87 blood pressure, afebrile satting well on room air. CBC normal. Blood sugars appears better controlled today. Currently pending AFB. Spoke to Dr. Hull, pulmonology and he states that he thinks it is possible bronchiectasis, but advises dependent for AFB. Pending repeat cocci result. Sputum grows Serratia and Enterobacter. Discontinue doxycycline, starting Levaquin. Exam Vital Signs Temp Pulse Resp BP Pulse Ox O2 Del Method O2 Flow Rate 97.2 F 102 H 18 157/85 H 98 Nasal Cannula 1 03/03/24 16:51 03/03/24 16:45 03/03/24 16:51 03/03/24 16:45 03/03/24 16:51 03/03/24 16:00 03/03/24 16:51 Narrative Exam General: No acute distress, frail, on O2 1Lt per nsc, alert, interactive HEENT: NC/AT, PERRL, EOMI, Good conjugate gaze, moist mucous membranes, oropharynx clear. Neck: Supple, No masses, No adenopathy, carotid pulse 2+ bilaterally without bruits, No JVD, normal range of motion. Chest: Symmetrical, atraumatic, and with equal expansion , Nontender on palpation no deformity and no crepitus. CVS: S1 and S2 present, Regular rate and rhythm, No murmurs, rubs or gallops perceived during auscultation. Lungs: Normal respiratory effort, CTAB, no wheezing, rhonchi or rales perceived during auscultation, No intercostal or subcostal retraction. Abdomen : Soft, no tenderness to palpation, no guarding ,no rebound, +BS, no organomegaly. Extremities: No edema, warm well perfused,cap refill less than 2, +2 dp equal bilaterally, able to move all 4 extremities spontaneously. Skin: Intact, no rashes, no lesions, no erythema or jaundice noted Neuro: AOx4, no focal neurologic deficits noted, GCS 15 Psych: Appropriate mood and affect. Objective Labs 03/03/24 04:17 03/03/24 04:17 Labs: Laboratory Results - last 24 hr 03/01/24 03/03/24 05:05 04:17 WBC 7.6 RBC 4.82 Hgb 12.8 L Hct 40.0 L MCV 83 MCH 26.6 MCHC 32.0 RDW Std Deviation 57.7 H Plt Count 211 Neut % (Auto) 72 Lymph % (Auto) 7 L [place] % (Auto) 15 H Eos % (Auto) 1 Baso % (Auto) 1 Neut # (Auto) 5.5 Lymph # (Auto) 0.5 L [place] # (Auto) 1.2 H Eos # (Auto) 0.1 Baso # (Auto) 0.1 Immature Gran # (Auto) 0.24 H Absolute Nucleated RBC 0.03 H Immature Gran % 3 H Nucleated RBC % 0 Sodium 127 L Potassium 4.0 Chloride 94 L Carbon Dioxide 21.5 Anion Gap 12 BUN 54 H Creatinine 3.6 H Estim Creat Clear Calc 17.0 L eGFR 18 L BUN/Creatinine Ratio 15 Glucose 150 H D Calculated Osmolality 272 L Calcium 8.6 Corrected Calcium 8.8 Phosphorus 5.3 H Magnesium 2.5 Total Bilirubin 0.3 AST 16 ALT < 7 L Alkaline Phosphatase 135 H Total Protein 9.1 H Albumin 3.7 Globulin 5.4 H Albumin/Globulin Ratio 0.7 L Coccidioides IgM Ab Negative TB Test (QFT) See Sep Rpt Quality Measures Quality Measures none Advance care planning discussed with:: patient Assessment & Plan Assessment Current Active Medications: Generic Name Dose Route Start Last Admin Trade Name Freq PRN Reason Stop Dose Admin Acetaminophen 650 mg 03/01/24 08:56 03/03/24 12:17 Acetaminophen 325 Mg Tablet PO 03/30/24 21:03 650 mg Q6H PRN Administration Fever >100.3 Aspirin 81 mg 03/02/24 11:00 03/03/24 08:03 Aspirin Ec 81 Mg Tabec PO 04/01/24 10:59 81 mg QDAY JOSE EDUARDO Administration Atorvastatin Calcium 80 mg 03/02/24 21:00 03/02/24 21:44 Atorvastatin Calcium 20 Mg Tablet PO 04/01/24 20:59 80 mg HS JOSE EDUARDO Administration Dextrose 25 ml 03/01/24 00:49 Dextrose 50%-Water Inj 50 Ml Syringe IV 03/31/24 00:48 Q15MIN PRN BG 50-70 responsive npo pt Dextrose 50 ml 03/01/24 00:49 Dextrose 50%-Water Inj 50 Ml Syringe IV 03/31/24 00:48 Q15MIN PRN BG <50 OR BG <70 & pt unresponsive Glucagon 1 mg 03/01/24 00:49 Glucagon Inj 1 Mg Vial IM Q15MIN PRN BG <70, and no IV access Heparin Sodium (Porcine) 3,500 unit 03/03/24 14:45 Heparin Sod Inj 1000 Unit/Ml Vial 10 Ml INDWELLCAT 03/17/24 14:44 PRN PRN DIALYSIS Hydralazine HCl 75 mg 03/02/24 22:00 03/03/24 13:34 Hydralazine Hcl 25 Mg Tablet PO 04/01/24 21:59 75 mg TID JOSE EDUARDO Administration Albumin Human 25 gm in 100 mls @ 100 mls/min 03/03/24 14:44 Albuminar-25 Ivpb IV PRN PRN DIALYSIS Insulin Glargine 15 unit 03/03/24 09:00 03/03/24 08:02 Insulin Glargine (Lantus) 5 Unit/0.05 Ml (Per 5 Units) SC 04/02/24 08:59 15 unit QDAY JOSE EDUARDO Administration Insulin Human Lispro 0 unit 03/02/24 22:15 03/03/24 12:22 Insulin Lispro (Admelog) 1 Unit/0.01 Ml Unit SC 04/01/24 22:14 10 unit ACHS JOSE EDUARDO Administration Protocol Levofloxacin 250 mg 03/03/24 12:00 03/03/24 12:17 Levofloxacin 250 Mg Tablet PO 03/10/24 11:59 250 mg QDAY JOSE EDUARDO Administration Levothyroxine Sodium 50 mcg 03/02/24 11:00 03/03/24 06:28 Levothyroxine Sodium 25 Mcg Tablet PO 04/01/24 10:59 50 mcg ACBR JOSE EDUARDO Administration Magnesium Hydroxide 30 ml 02/29/24 21:04 03/02/24 12:24 Milk Of Magnesia Susp 30 Ml Udc PO 03/30/24 21:03 30 ml QDAY PRN Administration CONSTIPATION Protocol Nifedipine 60 mg 03/01/24 09:00 03/03/24 08:03 Nifedipine Xl 30 Mg Tabcr PO 03/31/24 08:59 60 mg QDAY JOSE EDUARDO Administration Ondansetron HCl 4 mg 02/29/24 21:04 Ondansetron Inj 2 Mg/Ml Inj 2 Ml IV 03/30/24 21:03 Q6H PRN NAUSEA OR VOMITING Protocol Sevelamer Carbonate 800 mg 03/03/24 12:00 03/03/24 12:17 Sevelamer Carbonate 800 Mg Tablet PO 04/02/24 11:59 800 mg TIDWM JOSE EDUARDO Administration Valsartan 80 mg 03/03/24 10:45 03/03/24 12:17 Valsartan 80 Mg Tablet PO 04/02/24 10:44 80 mg QDAY JOSE EDUARDO Administration Vitamin B Complex/Vit C/Folic Acid 1 tab 03/01/24 09:00 03/03/24 08:03 Vit B12/Vit C/Fa (Nephrovite) Tablet PO 03/31/24 08:59 1 tab QDAY JOSE EDUARDO Administration Plan A 68 year old male with significant past medical history of Hypertension, ESRD on HD [Thursday/Thursday], hypothyroidism, diabetes mellitus on insulin presented to the hospital with chief complaints of fever since 2 to 3 weeks and admitted for Right lung consolidation to R/O Cocci vs TB vs Malignancy # Fever # Right upper lobe consolidation # To rule out cocci versus TB versus malignancy -Presented to the hospital with complaints of fever since 2 weeks associated with chills and rigors -Endorsing night sweats since 2 days before the age of admission. Denies shortness of breath and endorsed occasional cough with mucoid sputum. -Tested negative for skin tuberculin test twice in the last 6 months -In the ED, patient had a febrile episode of 100.3 ?F -Vitals are stable and patient is maintaining saturations well on room air -CBC is unremarkable except for mild anemia. Procalcitonin is 1.24, lactate is 0.8 -Chest x-ray showed right upper lobe consolidation and CT chest showed cavitatory lesion in right upper lobe -Cocci IgM negative, negative cocci IgG Blood cultures no growth 48-hour QuantiFERON appears negative Sputum grows Serratia and Enterobacter Plan -Started on ceftriaxone 1 g IV daily 02/28-03/02, DCed by ID -Doxycycline 100 mg p.o. twice daily [02/28-03/02] continue today -Start Levaquin today 03/03? -Cefuroxime 250 p.o. twice daily 03/02? -Pending Legionella -Pending AFB -Infectious Disease consulted, appreciate recommendations # Insulin-dependent diabetes mellitus HbA1c 7.4 Patient is using Tresiba 18 Units and lispro 6,12,6 units at home Insuline Glargine 15 units SC Sliding scale set to resistant #Hypertensive Emergency BP this AM was 181/94 Troponins elevated, trending Patient is on nifedipine 60 Qday at home, and hydralazine 25 TID - home nifedipine 60 mg Qday -Home hydralazine 75 TID as pressures remain high -Starting valsartan 80 Mg daily # ESRD on HD # Mild hyponatremia Patient was started on HD 3 months back, 2 days/week Thursday and Thursday, last dialysis is on 02/29/2024 Pt is followed by Dr. Dinh BUN is 22 and creatinine is 3 on admission Corrected Na 130 -Dr. Dinh following, plan for dialysis Thursday -Avoid nephrotoxic medications and renally dose medications -Monitor input and output, Fluid restrict 1500cc/day -Monitor electrolytes # Elevated troponins Troponin at the time of admission is 0.103, likely due to ESRD BNP is 199 - continue to trend symptoms, labs #Hypothyroidism TSH resulted 12.68 Free T4 0.98 -Home dose levothyroxine 50 mcg p.o. daily # Mild Normocytic Normochromic Anemia # Anemia due to ESRD -Hemoglobin at the time of admission is 11.9, MCV, MCH and MCHC are within normal limits -Iron panel and ferritin was ordered, follow-up with results -Replete stores as needed -Started on [facility] Maintenance: Dispo: MedSurg DVT ppx: Heparin GI ppx: Not needed Diet: Renal, low carbohydrate consistent IV lines: Peripheral Code status: Full Patient plan of care was discussed with the attending physician, Dr. Nolasco and senior residents on service Jp Handy D.O. PGY1 Anesthesiology Attending Provider Attestation/Addendum I have discussed and was present for the essential components of the history, physical examination, diagnosis, and treatment plan with the resident. I agree with the patient's care as documented by the resident and amended herein by me. Alberto Nolasco, DO. Vital signs stable, patient afebrile overnight, BP this morning 176/87 mmHg. TB quant negative, CBC largely unremarkable, hemoglobin mildly low, chemistry significant for a sodium of 127 which has been stable, BUN 54, creatinine 3.6 which is a slight improvement from previous day, phosphorus 5.3, cocci IgM negative. Pulmonology consulted today, recommends continue with AFB, also notes imaging suggestion of bronchiectasis and with Serratia and Enterobacter growing, recommended to change to change antibiotics to Levaquin from doxycycline and cefuroxime. Will continue isolation, monitors BP, continue to monitor cultures right now which are currently demonstrating Serratia marcescens and Enterobacter erogenous. Will discharge after AFBs come back negative. Although this document has been carefully reviewed, there may still be some phonetic and other typographical errors. These errors are purely grammatical due to imperfections in the software program and should not be construed in any way to compromise the substance of the patient's medical care during this visit.
--- NOTE | 2024-03-03 17:22 | PC.NURSE ---
tx terminated 11 min early d/t pt c/o bilateral cramping to legs, post rinse back pt denies all further complaints
[2024-03-03] MEDS: HEPARIN SOD INJ 1000 UNIT/ML VIAL 10 ML 3500 UNIT INDWELLCAT (17:36)
[2024-03-03] MEDS: Milk Of Magnesia Susp 30 ML UDC PO (18:07)
[2024-03-03] MEDS: ATORVASTATIN CALCIUM 20 MG TABLET 80 MG PO (20:16)
--- NOTE | 2024-03-03 20:33 | PC.NURSE ---
Dr. Reese at bedside with patient and family discussing POC.
[2024-03-03] MEDS: FLUTICASONE NAS SPRAY 0.05% 16 GM BTL 1 SPRAY NASAL (21:00)
[2024-03-03 21:50] LABS: Hepatitis A Antibody IgM Non Reactive (Non React); Hepatitis B Core Antibody IgM Non Reactive (Non React); Hepatitis B Surface Ab NonReact(Not Immune) (Immune); Hepatitis B Surface Antigen Non Reactive (Non React); Hepatitis C Antibody Non Reactive (Non React)
[2024-03-04] VITALS (10 sets, daily range): BP systolic 140–168; BP diastolic 70–93; PULSE 71–88; RESP 16–22; TEMP 36.3–36.9; O2SAT 94–99
[2024-03-04] MEDS: ACETAMINOPHEN 325 MG TABLET 650 MG PO ×4 (00:16→22:21)
[2024-03-04] MEDS: hydrALAZINE HCL 25 MG TABLET 75 MG PO ×3 (05:11→22:22)
[2024-03-04] MEDS: LEVOTHYROXINE SODIUM 25 MCG TABLET 50 MCG PO (05:11)
--- NOTE | 2024-03-04 05:40 | PC.NURSE ---
notified Dr. Reese that patient refused blood draw for morning labs.
[2024-03-04 05:43] LABS: Basophils # (Auto) 0.1 Thou/mm3 (0.0-0.2); Basophils % (Auto) 1 % (0-2.5); Eosinophils # (Auto) 0.1 Thou/mm3 (0.0-0.5); Eosinophils % (Auto) 1 % (0-10); Hematocrit 38.7 % (41.0-53.0); Hemoglobin 12.4 g/dL (13.5-16.0); Immature Granulocytes % (Auto) 2 % (0-0); Immature Granulocytes Auto 0.16 Thou/mm3 (0.00-0.00); Lymphocytes # (Auto) 0.5 Thou/mm3 (1.0-4.8); Lymphocytes % (Auto) 7 % (10-50); Mean Corpuscular Hemoglobin 27.1 pg (25.0-35.0); Mean Corpuscular Volume 85 fL (80-100); Monocytes # (Auto) 1.2 Thou/mm3 (0.0-0.8); Monocytes % (Auto) 16 % (0-12); Neutrophils # (Auto) 5.2 Thou/mm3 (1.8-7.7); Neutrophils % (Auto) 72 % (37-80); Nucleated Red Blood Cell # 0.02 Thou/mm3 (0.00-0.00); Nucleated Red Blood Cell % 0 /100 WBC (0); Platelet Count 225 Thou/mm3 (140-440); RDW Standard Deviation 60.9 fL (35.1-43.9); Red Blood Count 4.58 Miln/mm3 (4.50-5.90); White Blood Count 7.3 Thou/mm3 (3.8-10.6)
[2024-03-04 06:33] LABS: Alanine Aminotransferase 8 U/L (10-49); Albumin, Serum 3.7 gm/dL (3.4-4.8); Albumin/Globulin Ratio 0.7 (1.2-2.2); Alkaline Phosphatase 106 U/L (46-116); Anion Gap 6 (7-16); Aspartate Amino Transferase 17 U/L (0-34); BUN/Creatinine Ratio 11 Ratio (12-20); Bilirubin,Total 0.4 mg/dL (0.3-1.2); Blood Urea Nitrogen 31 mg/dL (9-23); Calcium 8.8 mg/dL (8.3-10.6); Chloride 96 mMol/L (98-107); Creatinine (Component) 2.9 mg/dL (0.6-1.3); Estimated Creatinine Clearance 21.1 mL/min (>60); Globulin 5.4 gm/dL (2.3-3.5); Glucose 108 mg/dL (74-106); Magnesium 2.7 mg/dL (1.6-2.6); Osmolality,Calculated 264 (275-295); Phosphorous 3.9 mg/dL (2.4-5.1); Potassium 3.5 mMol/L (3.4-5.1); Sodium 128 mMol/L (136-145); Total Protein 9.1 gm/dL (5.7-8.2); eGFR 23 See Note
[2024-03-04] MEDS: INSULIN LISPRO (AdmeLOG) 1 UNIT/0.01 ML UNIT SC ×4 (07:47→22:19)
[2024-03-04] MEDS: SEVELAMER CARBONATE 800 MG TABLET PO ×3 (07:47→16:54)
[2024-03-04] MEDS: VALSARTAN 80 MG TABLET PO (07:57)
[2024-03-04] MEDS: VIT B12/Vit C/FA (Nephrovite) TABLET 1 TAB PO (07:57)
[2024-03-04] MEDS: ASPIRIN EC 81 MG TABEC PO (07:57)
[2024-03-04] MEDS: LEVOFLOXACIN 250 MG TABLET PO (07:57)
[2024-03-04] MEDS: NIFEdipine XL 30 MG TABCR 60 MG PO (07:57)
[2024-03-04] MEDS: INSULIN GLARGINE (Lantus) 5 UNIT/0.05 ML (PER 5 UNITS) 15 UNIT SC (07:58)
--- NOTE | 2024-03-04 11:03 | PC.SS ---
Rounding: Pending cultures and cocci
--- NOTE | 2024-03-04 15:07 | ESPR_ITS ---
Documentation for date of: 03/04/24 Subjective Subjective Interval history: Patient was seen and examined at the bedside. Patient reported that he had mild headache overnight however he slept well. Overnight patient was given Tylenol for headaches. This morning blood pressure was evaluated and it was 140/80 therefore losartan was not increased or any other antihypertensives were not added. Patient was informed regarding his sputum AFB: Negative. Mycobacterium culture pending. Patient can be taken off from isolation. Patient received dialysis session on at 3 PM. No extra session of dialysis today. Patient was reported that he can ask for Tylenol for his headache that is most likely tension headaches. Cocci was repeated per ID recommendations. Anticipating discharge tomorrow. Levaquin was dose recently. Will likely monitor blood pressure. Hemoglobin remained stable at 12.4. WBC count stable. Kidney functions consistent with ESRD. All labs and orders were reviewed. Exam Vital Signs Temp Pulse Resp BP Pulse Ox O2 Del Method O2 Flow Rate 97.6 F 75 16 143/84 H 96 Nasal Cannula 1 03/04/24 12:00 03/04/24 14:11 03/04/24 12:00 03/04/24 14:11 03/04/24 12:00 03/04/24 12:00 03/04/24 12:00 Narrative Exam General: No acute distress, frail, on O2 1Lt per nsc, alert, interactive HEENT: NC/AT, PERRL, EOMI, Good conjugate gaze, moist mucous membranes, oropharynx clear. Neck: Supple, No masses, No adenopathy, carotid pulse 2+ bilaterally without bruits, No JVD, normal range of motion. Chest: Symmetrical, atraumatic, and with equal expansion , Nontender on palpation no deformity and no crepitus. CVS: S1 and S2 present, Regular rate and rhythm, No murmurs, rubs or gallops perceived during auscultation. Lungs: Normal respiratory effort, CTAB, no wheezing, rhonchi or rales perceived during auscultation, No intercostal or subcostal retraction. Abdomen : Soft, no tenderness to palpation, no guarding ,no rebound, +BS, no organomegaly. Extremities: No edema, warm well perfused,cap refill less than 2, +2 dp equal bilaterally, able to move all 4 extremities spontaneously. Skin: Intact, no rashes, no lesions, no erythema or jaundice noted Neuro: AOx4, no focal neurologic deficits noted, GCS 15 Psych: Appropriate mood and affect. Objective Labs 03/05/24 06:12 03/05/24 06:12 Labs: Laboratory Results - last 24 hr 03/01/24 03/02/24 03/02/24 14:25 01:21 12:42 WBC RBC Hgb Hct MCV MCH MCHC RDW Std Deviation Plt Count Neut % (Auto) Lymph % (Auto) [place] % (Auto) Eos % (Auto) Baso % (Auto) Neut # (Auto) Lymph # (Auto) [place] # (Auto) Eos # (Auto) Baso # (Auto) Immature Gran # (Auto) Absolute Nucleated RBC Immature Gran % Nucleated RBC % Sodium Potassium Chloride Carbon Dioxide Anion Gap BUN Creatinine Estim Creat Clear Calc eGFR BUN/Creatinine Ratio Glucose Calculated Osmolality Calcium Corrected Calcium Phosphorus Magnesium Total Bilirubin AST ALT Alkaline Phosphatase Total Protein Albumin Globulin Albumin/Globulin Ratio Hepatitis A IgM Ab Hep Bs Antigen Hep Bs Antibody Hep B Core IgM Ab Hepatitis C Antibody Mycobacterial Culture See Sep Rpt See Sep Rpt See Sep Rpt 03/03/24 03/04/24 19:05 04:17 WBC 7.3 RBC 4.58 Hgb 12.4 L Hct 38.7 L MCV 85 MCH 27.1 MCHC 32.0 RDW Std Deviation 60.9 H Plt Count 225 Neut % (Auto) 72 Lymph % (Auto) 7 L [place] % (Auto) 16 H Eos % (Auto) 1 Baso % (Auto) 1 Neut # (Auto) 5.2 Lymph # (Auto) 0.5 L [place] # (Auto) 1.2 H Eos # (Auto) 0.1 Baso # (Auto) 0.1 Immature Gran # (Auto) 0.16 H Absolute Nucleated RBC 0.02 H Immature Gran % 2 H Nucleated RBC % 0 Sodium 128 L Potassium 3.5 D Chloride 96 L Carbon Dioxide 26.0 Anion Gap 6 L BUN 31 H Creatinine 2.9 H D Estim Creat Clear Calc 21.1 L eGFR 23 L BUN/Creatinine Ratio 11 L Glucose 108 H Calculated Osmolality 264 L Calcium 8.8 Corrected Calcium 9.0 Phosphorus 3.9 Magnesium 2.7 H Total Bilirubin 0.4 AST 17 ALT 8 L Alkaline Phosphatase 106 D Total Protein 9.1 H Albumin 3.7 Globulin 5.4 H Albumin/Globulin Ratio 0.7 L Hepatitis A IgM Ab Non Reactive Hep Bs Antigen Non Reactive Hep Bs Antibody NonReact(Not Immune) L Hep B Core IgM Ab Non Reactive Hepatitis C Antibody Non Reactive Mycobacterial Culture Quality Measures Quality Measures VTE prophylaxis Advance care planning discussed with:: patient Assessment & Plan Assessment Current Active Medications: Generic Name Dose Route Start Last Admin Trade Name Freq PRN Reason Stop Dose Admin Acetaminophen 650 mg 03/04/24 09:30 Acetaminophen 325 Mg Tablet PO 03/30/24 21:03 Q6H PRN Fever >100.3 or pain Aspirin 81 mg 03/02/24 11:00 03/04/24 07:57 Aspirin Ec 81 Mg Tabec PO 04/01/24 10:59 81 mg QDAY JOSE EDUARDO Administration Atorvastatin Calcium 80 mg 03/02/24 21:00 03/03/24 20:16 Atorvastatin Calcium 20 Mg Tablet PO 04/01/24 20:59 80 mg HS JOSE EDUARDO Administration Dextrose 25 ml 03/01/24 00:49 Dextrose 50%-Water Inj 50 Ml Syringe IV 03/31/24 00:48 Q15MIN PRN BG 50-70 responsive npo pt Dextrose 50 ml 03/01/24 00:49 Dextrose 50%-Water Inj 50 Ml Syringe IV 03/31/24 00:48 Q15MIN PRN BG <50 OR BG <70 & pt unresponsive Glucagon 1 mg 03/01/24 00:49 Glucagon Inj 1 Mg Vial IM Q15MIN PRN BG <70, and no IV access Guaifenesin 200 mg 03/03/24 20:43 Guaifenesin Syrup 200 Mg/10 Ml Udc PO 04/02/24 20:42 QID PRN COUGH OR CONGESTION Protocol Heparin Sodium (Porcine) 3,500 unit 03/03/24 14:45 03/03/24 17:36 Heparin Sod Inj 1000 Unit/Ml Vial 10 Ml INDWELLCAT 03/17/24 14:44 3,500 unit PRN PRN Administration DIALYSIS Hydralazine HCl 75 mg 03/02/24 22:00 03/04/24 14:11 Hydralazine Hcl 25 Mg Tablet PO 04/01/24 21:59 75 mg TID JOSE EDUARDO Administration Albumin Human 25 gm in 100 mls @ 100 mls/min 03/03/24 14:44 Albuminar-25 Ivpb IV PRN PRN DIALYSIS Insulin Glargine 15 unit 03/03/24 09:00 03/04/24 07:58 Insulin Glargine (Lantus) 5 Unit/0.05 Ml (Per 5 Units) SC 04/02/24 08:59 15 unit QDAY JOSE EDUARDO Administration Insulin Human Lispro 0 unit 03/02/24 22:15 03/04/24 11:44 Insulin Lispro (Admelog) 1 Unit/0.01 Ml Unit SC 04/01/24 22:14 8 unit ACHS JOSE EDUARDO Administration Protocol Levofloxacin 250 mg 03/03/24 12:00 03/04/24 07:57 Levofloxacin 250 Mg Tablet PO 03/10/24 11:59 250 mg QDAY JOSE EDUARDO Administration Levothyroxine Sodium 50 mcg 03/02/24 11:00 03/04/24 05:11 Levothyroxine Sodium 25 Mcg Tablet PO 04/01/24 10:59 50 mcg ACBR JOSE EDUARDO Administration Magnesium Hydroxide 30 ml 02/29/24 21:04 03/03/24 18:07 Milk Of Magnesia Susp 30 Ml Udc PO 03/30/24 21:03 30 ml QDAY PRN Administration CONSTIPATION Protocol Nifedipine 60 mg 03/01/24 09:00 03/04/24 07:57 Nifedipine Xl 30 Mg Tabcr PO 03/31/24 08:59 60 mg QDAY JOSE EDUARDO Administration Ondansetron HCl 4 mg 02/29/24 21:04 Ondansetron Inj 2 Mg/Ml Inj 2 Ml IV 03/30/24 21:03 Q6H PRN NAUSEA OR VOMITING Protocol Sevelamer Carbonate 800 mg 03/03/24 12:00 03/04/24 11:45 Sevelamer Carbonate 800 Mg Tablet PO 04/02/24 11:59 800 mg TIDWM JOSE EDUARDO Administration Valsartan 80 mg 03/03/24 10:45 03/04/24 07:57 Valsartan 80 Mg Tablet PO 04/02/24 10:44 80 mg QDAY JOSE EDUARDO Administration Vitamin B Complex/Vit C/Folic Acid 1 tab 03/01/24 09:00 03/04/24 07:57 Vit B12/Vit C/Fa (Nephrovite) Tablet PO 03/31/24 08:59 1 tab QDAY JOSE EDUARDO Administration Plan A 68 year old male with significant past medical history of Hypertension, ESRD on HD [Thursday/Thursday], hypothyroidism, diabetes mellitus on insulin presented to the hospital with chief complaints of fever since 2 to 3 weeks and admitted for Right lung consolidation to R/O Cocci vs TB vs Malignancy # Fever # Right upper lobe consolidation # TB, ruled out # Cocci, ruled out -Presented to the hospital with complaints of fever since 2 weeks associated with chills and rigors -Endorsing night sweats since 2 days before the age of admission. Denies shortness of breath and endorsed occasional cough with mucoid sputum. -Tested negative for skin tuberculin test twice in the last 6 months -In the ED, patient had a febrile episode of 100.3 ?F -Vitals are stable and patient is maintaining saturations well on room air -CBC is unremarkable except for mild anemia. Procalcitonin is 1.24, lactate is 0.8 -Chest x-ray showed right upper lobe consolidation and CT chest showed cavitatory lesion in right upper lobe -Cocci IgM negative, negative cocci IgG Blood cultures no growth 48-hour QuantiFERON appears negative Sputum grows Serratia and Enterobacter Plan -Repeated cocci IgM serology -Sputum AFB negative -Continuing ceftriaxone to 50 mg renally dosed -Infectious Disease consulted, appreciate recommendations # Insulin-dependent diabetes mellitus HbA1c 7.4 Patient is using Tresiba 18 Units and lispro 6,12,6 units at home Insuline Glargine 15 units SC Sliding scale set to resistant #Hypertensive Emergency BP this AM was 181/94 Troponins elevated, trending Patient is on nifedipine 60 Qday at home, and hydralazine 25 TID -Consider given valsartan extra dose if blood pressure gets elevated as patient is complaining of headaches - home nifedipine 60 mg Qday -Home hydralazine 75 TID as pressures remain high -Starting valsartan 80 Mg daily # ESRD on HD # Mild hyponatremia Patient was started on HD 3 months back, 2 days/week Thursday and Thursday, last dialysis is on 02/29/2024 Pt is followed by Dr. Dinh BUN is 22 and creatinine is 3 on admission Corrected Na 130 Patient received dialysis session on 3 PM, 03/03 No session of dialysis today -Dr. Dinh following, plan for dialysis Thursday -Avoid nephrotoxic medications and renally dose medications -Monitor input and output, Fluid restrict 1500cc/day -Monitor electrolytes # Elevated troponins Troponin at the time of admission is 0.103, likely due to ESRD BNP is 199 - continue to trend symptoms, labs #Hypothyroidism TSH resulted 12.68 Free T4 0.98 -Home dose levothyroxine 50 mcg p.o. daily # Mild Normocytic Normochromic Anemia # Anemia due to ESRD -Hemoglobin at the time of admission is 11.9, MCV, MCH and MCHC are within normal limits -Iron panel and ferritin was ordered, follow-up with results -Replete stores as needed -Started [facility] Maintenance: Dispo: MedSurg. Will likely discharge after repeated cocci serology results. Sputum AFB and Contiform TB was negative. DVT ppx: Heparin GI ppx: Not needed Diet: Renal, low carbohydrate consistent IV lines: Peripheral Code status: Full Patient was seen and discussed with attending physician, Dr. Rambo Helms MD, PGY 2 Attending Provider Attestation/Addendum I have discussed and was present for the essential components of the history, physical examination, diagnosis, and treatment plan with the resident. I agree with the patient's care as documented by the resident and amended herein by me. Alberto Nolasco DO. Although this document has been carefully reviewed, there may still be some phonetic and other typographical errors. These errors are purely grammatical due to imperfections in the software program and should not be construed in any way to compromise the substance of the patient's medical care during this visit.
[2024-03-04] MEDS: ATORVASTATIN CALCIUM 20 MG TABLET 80 MG PO (22:21)
[2024-03-05] VITALS (26 sets, daily range): BP systolic 146–202; BP diastolic 69–104; PULSE 77–113; RESP 15–20; TEMP 36.2–37.1; O2SAT 96–99
[2024-03-05] MEDS: LEVOTHYROXINE SODIUM 25 MCG TABLET 50 MCG PO (06:04)
[2024-03-05] MEDS: hydrALAZINE HCL 25 MG TABLET 75 MG PO ×3 (06:04→22:41)
[2024-03-05] MEDS: ACETAMINOPHEN 325 MG TABLET 650 MG PO ×3 (06:18→23:32)
[2024-03-05 06:30] LABS: Basophils # (Auto) 0.1 Thou/mm3 (0.0-0.2); Basophils % (Auto) 1 % (0-2.5); Eosinophils # (Auto) 0.1 Thou/mm3 (0.0-0.5); Eosinophils % (Auto) 1 % (0-10); Hematocrit 39.6 % (41.0-53.0); Hemoglobin 12.3 g/dL (13.5-16.0); Immature Granulocytes % (Auto) 2 % (0-0); Immature Granulocytes Auto 0.11 Thou/mm3 (0.00-0.00); Lymphocytes # (Auto) 0.5 Thou/mm3 (1.0-4.8); Lymphocytes % (Auto) 6 % (10-50); Mean Corpuscular HGB Conc 31.1 g/dl (31.0-37.0); Mean Corpuscular Hemoglobin 26.7 pg (25.0-35.0); Mean Corpuscular Volume 86 fL (80-100); Monocytes # (Auto) 0.9 Thou/mm3 (0.0-0.8); Monocytes % (Auto) 13 % (0-12); Neutrophils # (Auto) 5.6 Thou/mm3 (1.8-7.7); Neutrophils % (Auto) 77 % (37-80); Nucleated Red Blood Cell % 0 /100 WBC (0); Platelet Count 213 Thou/mm3 (140-440); RDW Standard Deviation 61.1 fL (35.1-43.9); White Blood Count 7.3 Thou/mm3 (3.8-10.6)
[2024-03-05 07:11] LABS: Alanine Aminotransferase 7 U/L (10-49); Albumin, Serum 3.8 gm/dL (3.4-4.8); Albumin/Globulin Ratio 0.7 (1.2-2.2); Alkaline Phosphatase 159 U/L (46-116); Anion Gap 8 (7-16); Aspartate Amino Transferase 15 U/L (0-34); BUN/Creatinine Ratio 11 Ratio (12-20); Bilirubin,Total 0.5 mg/dL (0.3-1.2); Blood Urea Nitrogen 39 mg/dL (9-23); Calcium 8.5 mg/dL (8.3-10.6); Calcium (Corrected) 8.7 mg/dL (8.5-10.1); Carbon Dioxide 22.7 mMol/L (20.0-31.0); Chloride 92 mMol/L (98-107); Creatinine (Component) 3.6 mg/dL (0.6-1.3); Globulin 5.2 gm/dL (2.3-3.5); Glucose 334 mg/dL (74-106); Osmolality,Calculated 270 (275-295); Potassium 4.4 mMol/L (3.4-5.1); Sodium 123 mMol/L (136-145); eGFR 18 See Note
[2024-03-05] MEDS: INSULIN LISPRO (AdmeLOG) 1 UNIT/0.01 ML UNIT SC ×3 (08:04→20:49)
[2024-03-05] MEDS: INSULIN HUM REGULAR 1 UNIT/0.01 ML (PER UNIT) 5 UNIT SC (08:05)
[2024-03-05] MEDS: INSULIN GLARGINE (Lantus) 5 UNIT/0.05 ML (PER 5 UNITS) 15 UNIT SC (08:05)
[2024-03-05] MEDS: VIT B12/Vit C/FA (Nephrovite) TABLET 1 TAB PO (08:06)
[2024-03-05] MEDS: SEVELAMER CARBONATE 800 MG TABLET PO ×3 (08:06→17:50)
[2024-03-05] MEDS: LEVOFLOXACIN 250 MG TABLET PO (08:06)
[2024-03-05] MEDS: ASPIRIN EC 81 MG TABEC PO (08:06)
[2024-03-05] MEDS: NIFEdipine XL 30 MG TABCR 60 MG PO (08:06)
[2024-03-05] MEDS: VALSARTAN 80 MG TABLET PO ×2 (08:06→20:48)
--- NOTE | 2024-03-05 11:50 | PD.RESPRO ---
Documentation for date of: 03/05/24 Subjective Subjective Interval history: 03/05: No acute events overnight. Patient denies any systemic symptoms, no new symptoms. Minor headache this a.m. Vitals significant for 184/98 blood pressure, before BP meds and, will recheck at noon after administration of BP meds. CBC stable, sodium 123, corrected 129. No sensorineural deficits. Blood glucose high today, 334. Give 5 regular insulin the morning, will continue to trend throughout the day. Adjusting to 15 units glargine, 5 units lispro 3 times daily. Sliding scale in place. Currently pending repeat Coccidioides IgM. Exam Vital Signs Temp Pulse Resp BP Pulse Ox O2 Del Method O2 Flow Rate 97.9 F 77 19 184/98 H 98 Nasal Cannula 1 03/05/24 08:00 03/05/24 08:06 03/05/24 08:00 03/05/24 08:06 03/05/24 08:00 03/05/24 08:00 03/05/24 08:00 Narrative Exam General: No acute distress, frail, on O2 1Lt per nsc, alert, interactive HEENT: NC/AT, PERRL, EOMI, Good conjugate gaze, moist mucous membranes, oropharynx clear. Neck: Supple, No masses, No adenopathy, carotid pulse 2+ bilaterally without bruits, No JVD, normal range of motion. Chest: Symmetrical, atraumatic, and with equal expansion , Nontender on palpation no deformity and no crepitus. CVS: S1 and S2 present, Regular rate and rhythm, No murmurs, rubs or gallops perceived during auscultation. Lungs: Normal respiratory effort, CTAB, no wheezing, rhonchi or rales perceived during auscultation, No intercostal or subcostal retraction. Abdomen : Soft, no tenderness to palpation, no guarding ,no rebound, +BS, no organomegaly. Extremities: No edema, warm well perfused,cap refill less than 2, +2 dp equal bilaterally, able to move all 4 extremities spontaneously. Skin: Intact, no rashes, no lesions, no erythema or jaundice noted Neuro: AOx4, no focal neurologic deficits noted, GCS 15 Psych: Appropriate mood and affect. Objective Labs 03/05/24 06:12 03/05/24 06:12 Labs: Laboratory Results - last 24 hr 03/05/24 06:12 WBC 7.3 RBC 4.60 Hgb 12.3 L Hct 39.6 L MCV 86 MCH 26.7 MCHC 31.1 RDW Std Deviation 61.1 H Plt Count 213 Neut % (Auto) 77 Lymph % (Auto) 6 L [place] % (Auto) 13 H Eos % (Auto) 1 Baso % (Auto) 1 Neut # (Auto) 5.6 Lymph # (Auto) 0.5 L [place] # (Auto) 0.9 H Eos # (Auto) 0.1 Baso # (Auto) 0.1 Immature Gran # (Auto) 0.11 H Absolute Nucleated RBC 0.00 Immature Gran % 2 H Nucleated RBC % 0 Sodium 123 L Potassium 4.4 D Chloride 92 L Carbon Dioxide 22.7 Anion Gap 8 BUN 39 H Creatinine 3.6 H D Estim Creat Clear Calc 17.0 L eGFR 18 L BUN/Creatinine Ratio 11 L Glucose 334 H D Calculated Osmolality 270 L Calcium 8.5 Corrected Calcium 8.7 Phosphorus 5.0 Magnesium 3.0 H Total Bilirubin 0.5 AST 15 ALT 7 L Alkaline Phosphatase 159 H D Total Protein 9.0 H Albumin 3.8 Globulin 5.2 H Albumin/Globulin Ratio 0.7 L Quality Measures Quality Measures VTE prophylaxis Advance care planning discussed with:: patient Assessment & Plan Assessment Current Active Medications: Generic Name Dose Route Start Last Admin Trade Name Freq PRN Reason Stop Dose Admin Acetaminophen 650 mg 03/04/24 09:30 03/05/24 06:18 Acetaminophen 325 Mg Tablet PO 03/30/24 21:03 650 mg Q6H PRN Administration Fever >100.3 or pain Aspirin 81 mg 03/02/24 11:00 03/05/24 08:06 Aspirin Ec 81 Mg Tabec PO 04/01/24 10:59 81 mg QDAY JOSE EDUARDO Administration Atorvastatin Calcium 80 mg 03/02/24 21:00 03/04/24 22:21 Atorvastatin Calcium 20 Mg Tablet PO 04/01/24 20:59 80 mg HS JOSE EDUARDO Administration Dextrose 25 ml 03/01/24 00:49 Dextrose 50%-Water Inj 50 Ml Syringe IV 03/31/24 00:48 Q15MIN PRN BG 50-70 responsive npo pt Dextrose 50 ml 03/01/24 00:49 Dextrose 50%-Water Inj 50 Ml Syringe IV 03/31/24 00:48 Q15MIN PRN BG <50 OR BG <70 & pt unresponsive Glucagon 1 mg 03/01/24 00:49 Glucagon Inj 1 Mg Vial IM Q15MIN PRN BG <70, and no IV access Guaifenesin 200 mg 03/03/24 20:43 Guaifenesin Syrup 200 Mg/10 Ml Udc PO 04/02/24 20:42 QID PRN COUGH OR CONGESTION Protocol Heparin Sodium (Porcine) 3,500 unit 03/03/24 14:45 03/03/24 17:36 Heparin Sod Inj 1000 Unit/Ml Vial 10 Ml INDWELLCAT 03/17/24 14:44 3,500 unit PRN PRN Administration DIALYSIS Hydralazine HCl 75 mg 03/02/24 22:00 03/05/24 06:04 Hydralazine Hcl 25 Mg Tablet PO 04/01/24 21:59 75 mg TID JOES EDUARDO Administration Albumin Human 25 gm in 100 mls @ 100 mls/min 03/03/24 14:44 Albuminar-25 Ivpb IV PRN PRN DIALYSIS Insulin Glargine 15 unit 03/03/24 09:00 03/05/24 08:05 Insulin Glargine (Lantus) 5 Unit/0.05 Ml (Per 5 Units) SC 04/02/24 08:59 15 unit QDAY JOSE EDUARDO Administration Insulin Human Lispro 0 unit 03/02/24 22:15 03/05/24 08:04 Insulin Lispro (Admelog) 1 Unit/0.01 Ml Unit SC 04/01/24 22:14 12 unit ACHS JOSE EDUARDO Administration Protocol Insulin Human Lispro 5 unit 03/05/24 11:30 Insulin Lispro (Admelog) 1 Unit/0.01 Ml Unit SC 04/04/24 11:29 AC JOSE EDUARDO Levofloxacin 250 mg 03/03/24 12:00 03/05/24 08:06 Levofloxacin 250 Mg Tablet PO 03/10/24 11:59 250 mg QDAY JOSE EDUARDO Administration Levothyroxine Sodium 50 mcg 03/02/24 11:00 03/05/24 06:04 Levothyroxine Sodium 25 Mcg Tablet PO 04/01/24 10:59 50 mcg ACBR JOSE EDUARDO Administration Magnesium Hydroxide 30 ml 02/29/24 21:04 03/03/24 18:07 Milk Of Magnesia Susp 30 Ml Udc PO 03/30/24 21:03 30 ml QDAY PRN Administration CONSTIPATION Protocol Nifedipine 60 mg 03/01/24 09:00 03/05/24 08:06 Nifedipine Xl 30 Mg Tabcr PO 03/31/24 08:59 60 mg QDAY JOSE EDUARDO Administration Ondansetron HCl 4 mg 02/29/24 21:04 Ondansetron Inj 2 Mg/Ml Inj 2 Ml IV 03/30/24 21:03 Q6H PRN NAUSEA OR VOMITING Protocol Sevelamer Carbonate 800 mg 03/03/24 12:00 03/05/24 08:06 Sevelamer Carbonate 800 Mg Tablet PO 04/02/24 11:59 800 mg TIDWM JOSE EDUARDO Administration Valsartan 80 mg 03/03/24 10:45 03/05/24 08:06 Valsartan 80 Mg Tablet PO 04/02/24 10:44 80 mg QDAY JOSE EDUARDO Administration Vitamin B Complex/Vit C/Folic Acid 1 tab 03/01/24 09:00 03/05/24 08:06 Vit B12/Vit C/Fa (Nephrovite) Tablet PO 03/31/24 08:59 1 tab QDAY JOSE EDUARDO Administration Plan A 68 year old male with significant past medical history of Hypertension, ESRD on HD [Thursday/Thursday], hypothyroidism, diabetes mellitus on insulin presented to the hospital with chief complaints of fever since 2 to 3 weeks and admitted for Right lung consolidation to R/O Cocci vs TB vs Malignancy #Community-acquired pneumonia likely secondary to gram-positive bacteria # TB, ruled out -Presented to the hospital with complaints of fever since 2 weeks associated with chills and rigors -Endorsing night sweats since 2 days before the age of admission. Denies shortness of breath and endorsed occasional cough with mucoid sputum. -Tested negative for skin tuberculin test twice in the last 6 months -In the ED, patient had a febrile episode of 100.3 ?F -Vitals are stable and patient is maintaining saturations well on room air -CBC is unremarkable except for mild anemia. Procalcitonin is 1.24, lactate is 0.8 -Chest x-ray showed right upper lobe consolidation and CT chest showed cavitatory lesion in right upper lobe -Initial cocci IgM negative, negative cocci IgG Blood cultures no growth 48-hour QuantiFERON appears negative Sputum grows Serratia and Enterobacter -Sputum AFB negative Plan -Repeated cocci IgM serology currently pending -Patient on levofloxacin 03/03? -Infectious Disease consulted, appreciate recommendations # Insulin-dependent diabetes mellitus HbA1c 7.4 Patient is using Tresiba 18 Units and lispro 6,12,6 units at home Insuline Glargine 15 units SC, insulin lispro 5 with meals Sliding scale set to resistant, adjustments to be made accordingly #Hypertensive Emergency -improved Troponins elevated, trending Patient is on nifedipine 60 Qday at home, and hydralazine 25 TID -Consider given valsartan extra dose if blood pressure gets elevated as patient is complaining of headaches - home nifedipine 60 mg Qday -Home hydralazine 75 TID as pressures remain high - valsartan 80 Mg twice daily # ESRD on HD # Mild hyponatremia Patient was started on HD 3 months back, 2 days/week Thursday and Thursday, last dialysis is on 02/29/2024 Pt is followed by Dr. Dinh BUN is 22 and creatinine is 3 on admission Corrected Na 129 Patient received dialysis session on 3 PM, 03/03 No session of dialysis today -Dr. Dinh following, appreciate recommendations -Avoid nephrotoxic medications and renally dose medications -Monitor input and output, Fluid restrict 1500cc/day -Monitor electrolytes # Elevated troponins Troponin at the time of admission is 0.103, likely due to ESRD BNP is 199 - continue to trend symptoms, labs #Hypothyroidism TSH resulted 12.68 Free T4 0.98 -Home dose levothyroxine 50 mcg p.o. daily # Mild Normocytic Normochromic Anemia # Anemia due to ESRD -Hemoglobin at the time of admission is 11.9, MCV, MCH and MCHC are within normal limits -Iron panel and ferritin was ordered, follow-up with results -Replete stores as needed -Started on [facility] Maintenance: Dispo: MedSurg. Will likely discharge after repeated cocci serology results. Sputum AFB and Contiform TB was negative. DVT ppx: Heparin GI ppx: Not needed Diet: Renal, low carbohydrate consistent IV lines: Peripheral Code status: Full Patient was seen and discussed with attending physician, Dr. Gaurav Handy DO PGY1 Anesthesiology Attending Provider Attestation/Addendum I have discussed and was present for the essential components of the history, physical examination, diagnosis, and treatment plan with the resident. I agree with the patient's care as documented by the resident and amended herein by me. Alberto Nolasco DO. Although this document has been carefully reviewed, there may still be some phonetic and other typographical errors. These errors are purely grammatical due to imperfections in the software program and should not be construed in any way to compromise the substance of the patient's medical care during this visit.
[2024-03-05] MEDS: INSULIN LISPRO (AdmeLOG) 1 UNIT/0.01 ML UNIT 5 UNIT SC (12:02)
[2024-03-05 15:06] LABS: Cocci Serology, IgM Negative (Negative)
--- NOTE | 2024-03-05 16:18 | PC.NURSE ---
On dialysis. Pt stated he's starting to cramps. UFR decreased to 660ml/hr. BP remains elevated. Will monitor.
--- NOTE | 2024-03-05 16:48 | PC.NURSE ---
Pt at bedside asking why patient on HD today. She added that pt only goes to clinic every Thursday and thursday. Called Dr. Dinh, ordered to dialyze pt for 2 hrs only today, UF as tolerated.
[2024-03-05] MEDS: hydrALAZINE INJ 20 MG/ML VIAL 5 MG IV (16:49)
[2024-03-05] MEDS: HEPARIN SOD INJ 1000 UNIT/ML VIAL 10 ML 3500 UNIT INDWELLCAT (17:19)
--- NOTE | 2024-03-05 17:42 | PC.NURSE ---
Dialysis competed for 2 hrs, tolerated well. Able to removed 1100 ml of fluid net. VS stable post tx. Report given to Jackelyn BARNEY
[2024-03-05] MEDS: ATORVASTATIN CALCIUM 20 MG TABLET 80 MG PO (20:48)
[2024-03-05] MEDS: INSULIN GLARGINE (Lantus) 5 UNIT/0.05 ML (PER 5 UNITS) SC (20:49)
[2024-03-06] VITALS (8 sets, daily range): BP systolic 159–174; BP diastolic 79–95; PULSE 95–109; RESP 16–21; TEMP 36.5–37; O2SAT 96–100
[2024-03-06] MEDS: hydrALAZINE HCL 25 MG TABLET 75 MG PO (05:57)
[2024-03-06] MEDS: LEVOTHYROXINE SODIUM 25 MCG TABLET 50 MCG PO (05:58)
[2024-03-06 06:06] LABS: Basophils # (Auto) 0.1 Thou/mm3 (0.0-0.2); Basophils % (Auto) 1 % (0-2.5); Eosinophils % (Auto) 0 % (0-10); Hematocrit 38.1 % (41.0-53.0); Hemoglobin 11.8 g/dL (13.5-16.0); Immature Granulocytes % (Auto) 1 % (0-0); Immature Granulocytes Auto 0.11 Thou/mm3 (0.00-0.00); Lymphocytes # (Auto) 0.5 Thou/mm3 (1.0-4.8); Lymphocytes % (Auto) 5 % (10-50); Mean Corpuscular Hemoglobin 26.8 pg (25.0-35.0); Mean Corpuscular Volume 86 fL (80-100); Monocytes # (Auto) 1.1 Thou/mm3 (0.0-0.8); Monocytes % (Auto) 12 % (0-12); Neutrophils # (Auto) 7.2 Thou/mm3 (1.8-7.7); Neutrophils % (Auto) 80 % (37-80); Nucleated Red Blood Cell % 0 /100 WBC (0); Platelet Count 197 Thou/mm3 (140-440); RDW Standard Deviation 63.8 fL (35.1-43.9); Red Blood Count 4.41 Miln/mm3 (4.50-5.90)
[2024-03-06 06:51] LABS: Alanine Aminotransferase < 7 U/L (10-49); Albumin, Serum 3.8 gm/dL (3.4-4.8); Albumin/Globulin Ratio 0.8 (1.2-2.2); Alkaline Phosphatase 114 U/L (46-116); Anion Gap 9 (7-16); Aspartate Amino Transferase 16 U/L (0-34); BUN/Creatinine Ratio 11 Ratio (12-20); Bilirubin,Total 0.6 mg/dL (0.3-1.2); Blood Urea Nitrogen 35 mg/dL (9-23); Calcium 8.7 mg/dL (8.3-10.6); Calcium (Corrected) 8.9 mg/dL (8.5-10.1); Carbon Dioxide 23.1 mMol/L (20.0-31.0); Chloride 95 mMol/L (98-107); Creatinine (Component) 3.1 mg/dL (0.6-1.3); Estimated Creatinine Clearance 19.8 mL/min (>60); Glucose 155 mg/dL (74-106); Magnesium 2.6 mg/dL (1.6-2.6); Osmolality,Calculated 266 (275-295); Phosphorous 4.8 mg/dL (2.4-5.1); Sodium 127 mMol/L (136-145); Total Protein 8.8 gm/dL (5.7-8.2); eGFR 21 See Note
[2024-03-06] MEDS: NIFEdipine XL 30 MG TABCR 60 MG PO (09:10)
[2024-03-06] MEDS: LEVOFLOXACIN 250 MG TABLET PO (09:10)
[2024-03-06] MEDS: ASPIRIN EC 81 MG TABEC PO (09:10)
[2024-03-06] MEDS: SEVELAMER CARBONATE 800 MG TABLET PO ×2 (09:11→12:42)
[2024-03-06] MEDS: VALSARTAN 80 MG TABLET PO (09:11)
[2024-03-06] MEDS: INSULIN LISPRO (AdmeLOG) 1 UNIT/0.01 ML UNIT SC ×2 (09:11→12:42)
[2024-03-06] MEDS: VIT B12/Vit C/FA (Nephrovite) TABLET 1 TAB PO (09:11)
[2024-03-06] MEDS: INSULIN GLARGINE (Lantus) 5 UNIT/0.05 ML (PER 5 UNITS) 20 UNIT SC (09:12)
[2024-03-06] MEDS: INSULIN LISPRO (AdmeLOG) 1 UNIT/0.01 ML UNIT 6 UNIT SC ×2 (09:12→12:43)
[2024-03-06] MEDS: NIFEdipine XL 30 MG TABCR 90 MG PO (11:22)
[2024-03-06] MEDS: carVEDILOL 12.5 MG TABLET PO (11:22)
--- NOTE | 2024-03-06 15:20 | PC.SS ---
Late entry: SS met with pt bedside using all precautions; went over medicare; pt A/O times 4
--- NOTE | 2024-03-06 15:35 | ESDS_ITS ---
Planned Discharge Date 03/06/24 DS: Providers Provider Date of admission: 02/29/24 21:04 Primary care physician: Physician No Primary/Family Admitting Provider: Cody Galan MD Attending Provider on Admission: Tab Nolasco DO Consults: 03/01/24 12:41 Consult to Infectious Diseases Stat Comment: Consulting Provider: Maycol Valenzuela 03/01/24 13:12 Consult to Nephrology Routine Comment: ESRD Dialysis MF Consulting Provider: Baudilio Dinh 03/03/24 11:36 Consult to Pulmonology Routine Comment: Cavitary lesion Consulting Provider: Tyrese Hull I Attending Provider on DC: Hilario Handy Discharging Provider: Hilario Handy DS: Diagnosis Problem List Completed Was Problem List Reviewed/Reconciled?: Yes Hospital Course Hospital Course Hospital course: #Community-acquired pneumonia likely secondary to gram-positive bacteria # TB, ruled out # Insulin-dependent diabetes mellitus #Hypertensive Emergency -improved # ESRD on HD # Mild hyponatremia # Elevated troponins #Hypothyroidism # Mild Normocytic Normochromic Anemia # Anemia due to ESRD A 68 year old male with significant past medical history of Hypertension, ESRD on HD [Thursday/Thursday], hypothyroidism, diabetes mellitus on insulin presented to the hospital with chief complaints of fever since 2 to 3 weeks. Patient endorsed that he is having fevers ranging 101 to 103 ?F since almost 2 to 3 weeks, resolves with Tylenol, associated with chills and rigors, also endorsed night sweats since 2 days before the day of admission. Endorsed that he loses and gains weight continuously. Denies shortness of breath and endorsed mild cough with occasional sputum which is mucoid in color associated with no hemoptysis. Recent hospital admission in [facility] for uncontrolled Hypertension in October 2023 patient was admitted for right upper lobe consolidation found on imaging and to rule out TB versus cocci. Over the hospital course patient was treated appropriately with antibiotics. Sputum AFB was negative, Quant Farren negative. Multiple repeated cocci serology negative. Patient received dialysis in the hospital. Patient's fever appeared to resolved during his hospital course, and at time of discharge patient stated that he felt somewhat his baseline. Patient's blood pressures were persistently high during his hospital stay and medication adjustments were made accordingly. Discharge medications were prescribed accordingly. Patient's vital signs stable on discharge patient's labs stable on discharge. Patient's blood sugar controlled at discharge. Advised to follow-up with primary care provider soon after discharge. Patient advised to follow-up with Dr. Dinh upon discharge. Patient advised to return to the emergency department if symptoms worsen or persist. Patient is agreeable. . Status at Discharge Cognitive/behavioral status at discharge: Stable Time Spent with Patient Time attestation: Total time spent providing and/or coordinating discharge services: Exam Vital Signs Temp Pulse Resp BP Pulse Ox O2 Del Method O2 Flow Rate 97.8 F 98 17 159/95 H 100 Room Air 1 03/06/24 11:49 03/06/24 11:49 03/06/24 11:49 03/06/24 11:49 03/06/24 11:49 03/06/24 11:49 03/06/24 07:30 Narrative Exam General: No acute distress, frail, on O2 1Lt per nsc, alert, interactive HEENT: NC/AT, PERRL, EOMI, Good conjugate gaze, moist mucous membranes, oropharynx clear. Neck: Supple, No masses, No adenopathy, carotid pulse 2+ bilaterally without bruits, No JVD, normal range of motion. Chest: Symmetrical, atraumatic, and with equal expansion , Nontender on palpation no deformity and no crepitus. CVS: S1 and S2 present, Regular rate and rhythm, No murmurs, rubs or gallops perceived during auscultation. Lungs: Normal respiratory effort, CTAB, no wheezing, rhonchi or rales perceived during auscultation, No intercostal or subcostal retraction. Abdomen : Soft, no tenderness to palpation, no guarding ,no rebound, +BS, no organomegaly. Extremities: No edema, warm well perfused,cap refill less than 2, +2 dp equal bilaterally, able to move all 4 extremities spontaneously. Skin: Intact, no rashes, no lesions, no erythema or jaundice noted Neuro: AOx4, no focal neurologic deficits noted, GCS 15 Psych: Appropriate mood and affect. Discharge Plan Plan Patient Disposition: HOME (Self Care) Patient condition on transfer: Stable Prescriptions/Referrals Prescriptions/Med Rec: New Nephro-Jose Manuel 0.8 mg Tablet 1 tab PO QDAY 30 Days Qty: 30 0RF valsartan 80 mg Tablet 80 mg PO BID 30 Days Qty: 60 0RF Rx Instructions: Hold if SBP drop below 100 and DBP below 60 mmHg Close monitoring of potassium during dialysis if above 5.5 decrease the dose to once only carvedilol [Coreg] 12.5 mg tablet 12.5 mg PO BID Qty: 60 2RF Rx Instructions: must administer with a meal/food Continued furosemide 40 mg tablet 40 mg PO BID Patient Comments: TAKE 1 TABLET BY MOUTH TWICE DAILY atorvastatin 80 mg Tablet 80 mg PO QDAY aspirin 81 mg tablet,delayed release (DR/EC) 81 mg PO 1XD Patient Comments: TAKE 1 TABLET BY MOUTH ONCE DAILY omeprazole 20 mg capsule,delayed release(DR/EC) 20 mg PO 1XD Patient Comments: TAKE 1 CAPSULE BY MOUTH ONCE DAILY sevelamer carbonate 800 mg Tablet 800 mg PO TID Rx Instructions: must administer with a meal/food levothyroxine 50 mcg Tablet 50 mcg PO QDAY hydralazine 25 mg tablet 75 mg PO TID Qty: 30 0RF Patient Comments: TAKE 3 TABLETS BY MOUTH THREE TIMES DAILY Rx Instructions: Hold if SBP drop below 100 and DBP below 60 mmHg Changed nifedipine 60 mg tablet extended release 60 mg PO QPM Qty: 30 0RF Patient Comments: TAKE 1 TABLET BY MOUTH ONCE DAILY Rx Instructions: Hold if SBP drop below 100 and DBP below 60 mmHg Referrals: Baudilio Dinh MD [Physician] - No Primary/Family,Physician [Primary Care Provider] - Patient/Caregiver Discharge Instructions Discharge Activity: activity as tolerated Other Discharge Activity Instructions:: Please take your new medication as directed Please continue home medications as prescribed: Please follow-up with your primary care provider within 7 days. If you do not have a primary care provider you can establish care with the [facility] at [address] [place] [address] Dr. Shell[address] [place] [id number] Please follow-up with your cellophane wrapping examiner Dr. Dinh within 2 weeks of discharge. Please continue to make your dialysis appointments, as it is imperative to your health that you are able to make them. Education Materials: Controlling High Blood Pressure, Blood Sugar Monitoring and ..., ED Fever Control (Adult) Print Language: French Stand Alone Forms: Sara Award Info., Patient Portal Info Letter Discharge Order Discharge Orders: Discharge (Routine); Ordered 03/06/24 Ordered By: Hilario Handy Quality Discharge Quality Measures VTE prophylaxis Attestestation Attestation I have discussed and was present for the essential components of the discharge history, physical examination, diagnosis, and discharge treatment plan with the resident. I agree with the patient's discharge care as documented by the resident and amended herein by me. Alberto Nolasco DO. The patient understood all discharge instructions, all questions were answered satisfactorily. The patient was instructed to return to the Emergency Department is symptoms worsened or persisted. Although this document has been carefully reviewed, there may still be some phonetic and other typographical errors. These errors are purely grammatical due to imperfections in the software program and should not be construed in any way to compromise the substance of the patient's medical care during this visit.
[2024-03-07 06:54] LABS: Legionella Ag, EIA, Urine* NOT DETECTED
[2024-03-07 13:18] LABS: Cocci Serology, IgG Negative (Negative)
== END 2024-03-06 15:34 | disposition home or self-care (01) | DRG 177 ==
LOC: SERX 20:26 → SERHOLD 21:18 → S3SX 23:39 → S3NX 03-03 18:23
PROVIDERS: Internal Medicine; Internal Medicine Infectious Disease; Nurse Practitioner Family; Registered Nurse General Practice; Student in an Organized Health Care Education/Training Program; Admitting Provider Internal Medicine; Emergency Provider Emergency Medicine; Visit Provider Student in an Organized Health Care Education/Training Program
DX: J15.69 Pneumonia due to other Gram-negative bacteria (principal); N18.6 End stage renal disease; E87.1 Hypo-osmolality and hyponatremia; I12.0 Hypertensive chronic kidney disease with stage 5 chronic kidney disease or end stage renal disease; I16.1 Hypertensive emergency; E11.22 Type 2 diabetes mellitus with diabetic chronic kidney disease; E03.9 Hypothyroidism, unspecified; D63.1 Anemia in chronic kidney disease; E78.5 Hyperlipidemia, unspecified; E83.39 Other disorders of phosphorus metabolism; Z90.49 Acquired absence of other specified parts of digestive tract; Z99.2 Dependence on renal dialysis; Z79.4 Long term (current) use of insulin; Z79.890 Hormone replacement therapy; Z79.82 Long term (current) use of aspirin; Z79.899 Other long term (current) drug therapy
CPT/HCPCS: 36415; 71046; 71250; 80048; 80053; 80061; 80074; 81001; 82728; 83036; 83540; 83550; 83605; 83615; 83690; 83735; 83880; 84100; 84145; 84300; 84439; 84443; 84484; 85025; 85610; 85730; 86331; 86480; 86635; 86703; 86706; 86803; 87015; 87040; 87077; 87081; 87086; 87116; 87186; 87205; 87206; 87400; 87449; 87811; 93005; 96365; 96372; 99285; J0360; J0696; J1643; J1815; A9270

== ENCOUNTER 2024-07-12 12:06 | Emergency (ER) | payer OTHER, SELFPAY ==
[2024-07-12 12:14] VITALS: BP 92/46; BP 96/56; PULSE 58; RESP 16; TEMP 36.4; O2SAT 98
--- NOTE | 2024-07-12 12:17 | EKG_ITS ---
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
--- NOTE | 2024-07-12 12:17 | PD.EDADULT ---
ED General RME/HPI General Chief complaint: Altered Mental Status Stated complaint: AMS Time Seen by Provider: 07/12/24 12:16 Arrival date/time: 07/12/24 12:06 CC: Altered mental status HPI patient presents the ER via EMS report from [facility] that starting yesterday, after dialysis, the patient was altered . Facility reports a blood pressure of 60/40 EMS report of blood pressure of 90/60. Patient is on fluid restriction and is complaining of thirst. Patient denies headache shortness of breath chest pain difficulty breathing nausea or vomiting. Only complaining of thirst. Upon initial assessment patient is awake alert oriented x 2 requesting water secondary to his thirst. States his trader is Dr. Sandhu. He is dialyzed on Mondays and Fridays. Related Data Home Medications ?Medication ?Instructions ?Recorded ?Confirmed aspirin 81 mg tablet,delayed 81 mg PO 1XD 02/29/24 02/29/24 release atorvastatin 80 mg tablet 80 mg PO QDAY 02/29/24 02/29/24 furosemide 40 mg tablet 40 mg PO BID 02/29/24 02/29/24 levothyroxine 50 mcg tablet 50 mcg PO QDAY 02/29/24 02/29/24 omeprazole 20 mg capsule,delayed 20 mg PO 1XD 02/29/24 02/29/24 release sevelamer carbonate 800 mg tablet 800 mg PO TID 02/29/24 02/29/24 Previous Rx's ?Medication ?Instructions ?Recorded hydralazine 25 mg tablet 75 mg (3 x 25 mg) PO TID #30 tabs 03/05/24 nifedipine 60 mg tablet,extended 60 mg PO QPM #30 tabs 03/05/24 release carvedilol 12.5 mg tablet (Coreg) 12.5 mg PO BID #60 tabs 03/06/24 Allergies Allergy/AdvReac Type Severity Reaction Status Date / Time No Known Allergies Allergy Verified 07/28/22 16:17 Review of Systems Review of Systems Narrative Review of Systems: GEN: No fever, no chills, no weight loss EYES: No discharge, no visual changes, no pain HEENT: No ear pain, no congestion, no sore throat PULM: No shortness of breath, no cough, no congestion CV: No chest pain, no dyspnea on exertion, no palpitations GI: No nausea, no vomiting, no diarrhea, no pain, no constipation : No frequency, no urgency, no dysuria MUSC/SKEL: No joint pain, no back pain SKIN: No rash PSYCH: No hallucinations, no depression HEME/LYMPH: No easy bleeding or bruising tendencies NEURO: No weakness, no headache Past Medical History Past Medical History CARDIAC: Positive Hypercholesterolemia and Hypertension; Negative Cardiac Disorders or Congestive Heart Failure RESPIRATORY: Negative Chronic Obstructive Pulmonary Disease (COPD) or Asthma GENITOURINARY: Positive Renal Disease and Dialysis ENDOCRINE: Positive Diabetes Mellitus Type 2; Negative Diabetes Mellitus Type 1 HEMATOLOGIC: Negative Sickle Cell Disease Family History FAMILY HISTORY: Negative Family Cancer Social History SMOKING STATUS: Never smoker SECOND HAND EXPOSURE: No ED Exam Narrative Physical exam: [General: Appears not in any acute distress Head normocephalic HEENT: Eyes: Pupils are PERRLA EOMs are intact mouth pink dry membranes uvula is midline swallow symmetrical phonation is normal. Nose no rhinorrhea. Neck is supple nontender no JVD no edema Chest equal chest rise nontender to palpation. Right anterior chest dialysis catheter clean dry intact within dry dressing Respiratory: Clear to auscultation no wheezes crackles or rubs CV: Rate rhythm is regular no murmurs rubs or clicks Abdomen is flat, habitus soft nontender no masses positive bowel sounds all 4 quadrants Back: No CVA tenderness no spinous process tenderness from cervical spine thoracic and lumbar spine Skin: Intact no petechiae rash induration ulceration or crepitus Extremities: Moving all extremity against resistance cap refill less than 2 seconds neurosensory intact Neuro: Awake alert oriented x2, person and place, Glascow coma 15 no focal deficits] Course Course Course Narrative: Reevaluation of this patient at 1500, the patient is awake easily arousable responding to all questions appropriately tolerated p.o. fluids and p.o. food. Laboratory results show no acute or critical finding that requires emergent intervention. Will discharge back to care. Quality Measures none Orders Category Date Time Status EKG (ED ONLY) *Do not use* NOW Care 07/12/24 12:17 Completed Glucose [Bedside Blood Glucose] NOW Care 07/12/24 12:17 Active Saline [Insert IV] NOW Care 07/12/24 12:22 Active EKG (ED Only) Stat Exams 07/12/24 12:17 Draft B-Type Natriuretic Peptide Stat Lab 07/12/24 12:33 Completed CBC Stat Lab 07/12/24 12:33 Completed Comprehensive Metabolic Panel Stat Lab 07/12/24 12:33 Completed Drug Screen,Urine Stat Lab 07/12/24 12:17 Ordered LDH (Lactate Dehydrogenase) Stat Lab 07/12/24 12:33 Completed Magnesium Stat Lab 07/12/24 12:33 Completed Partial Thromboplastin Time Stat Lab 07/12/24 12:33 Completed Prothrombin Time with INR Stat Lab 07/12/24 12:33 Completed Troponin I Stat Lab 07/12/24 12:33 Completed Urinalysis Stat Lab 07/12/24 12:17 Ordered Sodium Chloride 0.9% 500 ml [Ns] 500 ml Med 07/12/24 12:22 Discontinued IV 999 mls/hr Vital Signs Vital signs: Vital Signs Temperature 97.6 F 07/12/24 12:14 Pulse Rate 58 L 07/12/24 12:14 Respiratory Rate 16 07/12/24 12:14 Blood Pressure 96/56 L 07/12/24 12:14 Pulse Oximetry (%) 98 07/12/24 12:14 Oxygen Delivery Method Nasal Cannula 07/12/24 12:14 Oxygen Flow Rate 2 07/12/24 12:14 Discharge Plan Plan Patient Disposition: HOME (Self Care) Patient condition on transfer: Stable Prescriptions/Referrals Prescriptions/Med Rec: No Action furosemide 40 mg tablet 40 mg PO BID Patient Comments: TAKE 1 TABLET BY MOUTH TWICE DAILY atorvastatin 80 mg Tablet 80 mg PO QDAY aspirin 81 mg tablet,delayed release (DR/EC) 81 mg PO 1XD Patient Comments: TAKE 1 TABLET BY MOUTH ONCE DAILY omeprazole 20 mg capsule,delayed release(DR/EC) 20 mg PO 1XD Patient Comments: TAKE 1 CAPSULE BY MOUTH ONCE DAILY sevelamer carbonate 800 mg Tablet 800 mg PO TID Rx Instructions: must administer with a meal/food levothyroxine 50 mcg Tablet 50 mcg PO QDAY hydralazine 25 mg tablet 75 mg PO TID Qty: 30 0RF Patient Comments: TAKE 3 TABLETS BY MOUTH THREE TIMES DAILY Rx Instructions: Hold if SBP drop below 100 and DBP below 60 mmHg nifedipine 60 mg tablet extended release 60 mg PO QPM Qty: 30 0RF Patient Comments: TAKE 1 TABLET BY MOUTH ONCE DAILY Rx Instructions: Hold if SBP drop below 100 and DBP below 60 mmHg carvedilol [Coreg] 12.5 mg tablet 12.5 mg PO BID Qty: 60 2RF Rx Instructions: must administer with a meal/food Referrals: Toby Peña [Primary Care Provider] - In 1 week Problem List Clinical Impression: Altered mental status, End-stage renal disease (ESRD) Patient/Caregiver Discharge Instructions Education Materials: Hemodialysis Print Language: Bhutanese Stand Alone Forms: Sara Award Info., Patient Portal Info Letter PA/LON Supervising Physician PA/SPORTS TEAM MANAGER Supervising Physician: Maldonado Braun ENP [facility] Clinical Information Provided by: patient and EMS Medical Records reviewed [facility] Meds/Rx considered, not ordered None Labs/Rad/Tests considered, not ordered None EKG Interpretation EKG #1: EKG Interpretation: EKG performed at 1325 shows a ventricular rate of 5 8 LA interval 152 QRS of 82 QTc of 437 sinus bradycardia. Labs Labs: interpreted by ms Lab(s) Interpretation(s): CBC shows no acute leukocytosis H&H of 10.2 and 30.7 respectively. Coags within acceptable limits CMP shows sodium 129 chloride of 94 potassium of 4.1 CO2 27.3 gap of 8 BUN of 31 creatinine 3.6 yes calcium at 7.9 no transaminitis or T. bili elevation Troponin is 0.33 BNP is 667. Medication Administration(s) Medication Administration History Discontinued Medications Sodium Chloride (Ns) 500 mls @ 999 mls/hr IV .Q31M ONE Stop: 07/12/24 12:52 Last Admin: 07/12/24 13:59 Dose: 999 mls/hr Documented By:
[2024-07-12 12:41] LABS: Basophils # (Auto) 0.1 Thou/mm3 (0.0-0.2); Basophils % (Auto) 1 % (0-2.5); Eosinophils # (Auto) 0.1 Thou/mm3 (0.0-0.5); Eosinophils % (Auto) 1 % (0-10); Hematocrit 30.9 % (41.0-53.0); Hemoglobin 10.2 g/dL (13.5-16.0); Immature Granulocytes % (Auto) 2 % (0-0); Lymphocytes # (Auto) 0.4 Thou/mm3 (1.0-4.8); Lymphocytes % (Auto) 8 % (10-50); Mean Corpuscular Hemoglobin 29.4 pg (25.0-35.0); Mean Corpuscular Volume 89 fL (80-100); Monocytes # (Auto) 0.8 Thou/mm3 (0.0-0.8); Monocytes % (Auto) 14 % (0-12); Neutrophils # (Auto) 3.9 Thou/mm3 (1.8-7.7); Neutrophils % (Auto) 74 % (37-80); Nucleated Red Blood Cell % 0 /100 WBC (0); Platelet Count 264 Thou/mm3 (140-440); RDW Standard Deviation 51.8 fL (35.1-43.9); Red Blood Count 3.47 Miln/mm3 (4.50-5.90); White Blood Count 5.2 Thou/mm3 (3.8-10.6)
[2024-07-12 12:58] LABS: INR 1.1 (0.9-1.3); Partial Thromboplastin Time 26.8 Seconds (22.0-36.0); Prothrombin Time 11.5 Seconds (9.0-12.2)
[2024-07-12 13:00] VITALS: O2SAT 98
[2024-07-12 13:01] LABS: B-Type Natriuretic Peptide 667 pg/mL (0-100)
[2024-07-12 13:02] LABS: Alanine Aminotransferase 20 U/L (10-49); Albumin, Serum 3.6 gm/dL (3.4-4.8); Albumin/Globulin Ratio 0.9 (1.2-2.2); Alkaline Phosphatase 114 U/L (46-116); Anion Gap 8 (7-16); Aspartate Amino Transferase 28 U/L (0-34); BUN/Creatinine Ratio 9 Ratio (12-20); Bilirubin,Total 0.4 mg/dL (0.3-1.2); Blood Urea Nitrogen 31 mg/dL (9-23); Calcium 7.9 mg/dL (8.3-10.6); Calcium (Corrected) 8.2 mg/dL (8.5-10.1); Carbon Dioxide 27.3 mMol/L (20.0-31.0); Chloride 94 mMol/L (98-107); Creatinine (Component) 3.6 mg/dL (0.6-1.3); Globulin 4.1 gm/dL (2.3-3.5); Glucose 391 mg/dL (74-106); LDH (Lactate Dehydrogenase) 214 U/L (120-246); Magnesium 2.3 mg/dL (1.6-2.6); Osmolality,Calculated 281 (275-295); Potassium 4.1 mMol/L (3.4-5.1); Sodium 129 mMol/L (136-145); Total Protein 7.7 gm/dL (5.7-8.2); Troponin I 0.033 ng/mL (0.0-0.045); eGFR 18 See Note
[2024-07-12] MEDS: SODIUM CHLORIDE 0.9% 500 ML 500 ML 999 ML IV (13:59)
[2024-07-12 14:33] VITALS: BP 104/52; PULSE 58; RESP 12; TEMP 36.6; O2SAT 99
--- NOTE | 2024-07-12 15:45 | PC.CC ---
Addendum entered by Priti Roe 07/12/24 16:49: 1830 p/u ETA- [facility] will transport to [facility] Addendum entered by Priti Roe 07/12/24 16:23: Per CHRISTIAN Jerome, [facility] cannot provide transportation after all. ASW contacted Director Greg Solis and explained the situation and she agreed to sign and NISHI with [facility] for transportation back to [facility] for the pt. Addendum entered by Priti Roe 07/12/24 16:10: Per ECTOR Jerome, pts will not be transporting pt home. ASW arranged transportation with [facility] as pts medical insurance does not cover transportation. [facility] will call back with an estimated p/u ETA. Original Note: SHAHID roe was asked to arrange transportation back to SNF for the pt. However, pts arrived and stated she would take the pt back home and then return the pt to SNF.
[2024-07-12 16:19] VITALS: BP 103/52; PULSE 58; RESP 16; TEMP 36.6; O2SAT 99
--- NOTE | 2024-07-12 16:50 | PC.NURSE ---
SANDWICH GIVEN TO PT AT THIS TIME. NO DISTRESS NOTED. WILL CONTINUE TO MONITOR
--- NOTE | 2024-07-12 17:23 | PC.NURSE ---
REPORT CALLED TO PRIMARY NURSE MAYRA AT [facility].
--- NOTE | 2024-07-12 17:30 | PC.NURSE ---
PT UP TO USE URINAL AT THIS TIME. PT ALERT AND REQUESTING HOT TEA. WILL GET TEA FOR PT AT THIS TIME
[2024-07-12 18:14] VITALS: BP 124/54; PULSE 63; RESP 20; TEMP 36.6; O2SAT 95
== END 2024-07-12 18:47 | disposition home or self-care (01) ==
PROVIDERS: Registered Nurse General Practice; Emergency Provider Emergency Medicine; PCP Family Medicine
DX: R41.82 Altered mental status, unspecified (principal); N18.6 End stage renal disease; Z99.2 Dependence on renal dialysis
CPT/HCPCS: 36415; 80053; 80307; 81001; 83615; 83735; 83880; 84484; 85025; 85610; 85730; 93005; 96360; 99284; J7040

== ENCOUNTER 2024-07-18 05:23 | Inpatient (IN) | payer OTHER, MEDICARE, SELFPAY ==
[2024-07-18] VITALS (29 sets, daily range): BP systolic 133–223; BP diastolic 80–105; PULSE 48–85; RESP 12–20; TEMP 36.2–37.2; O2SAT 97–100; BMI 26.6
--- NOTE | 2024-07-18 05:37 | EKG_ITS ---
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
--- NOTE | 2024-07-18 05:37 | XR_ITS ---
Examination: CT brain head without contrast. 2-D sagittal coronal reconstructions Date and time of exam:July 14, 2024 0730 hours INDICATIONS: Altered mental status this morning CTDI: vol (mGy):53.3 DLP: (mGycm):996 Technique: Multiple CT axial sections of the brain have been obtained, 5 mm slice thickness. Contrast has not been administered. 2-D sagittal, coronal reconstructions have been obtained Low dose protocols were performed. One or more of the following dose reduction techniques were used; automated exposure control, adjustment of the mA and/or KV according to patient size, use of iterative reconstruction technique. Findings: No significant ventricular enlargement. Intra-axial or extra-axial hemorrhage density is not seen. No mass effect or midline shift Basal cisterns are not remarkable. Fourth ventricle is midline. Cranial vault intact. Impression: Negative for acute hemorrhage, mass effect or midline shift Advise clinical correlation follow up accordingly
--- NOTE | 2024-07-18 05:37 | XR_ITS ---
Examination: CT chest, without intravenous contrast. CT abdomen, without intravenous contrast. CT pelvis, without intravenous contrast. 2-D sagittal and coronal reconstructions. 3-D reconstructions. Date and time of exam:Jul 18 2024 0725 hours INDICATIONS: Chest pain abdominal pain this morning CTDI vol (mgy) 10.4 DLP (MGycm)720 Technique: Multiple CT images, 3.0 mm slice thickness, obtained chest, abdomen, pelvis, with the high-resolution 64 slice scanner.. Sagittal and coronal 2-D reconstructions are obtained. 3-D reconstructions Low dose protocols were performed. One or more of the following dose reduction techniques were used; automated exposure control, adjustment of the mA and/or KV according to patient size, use of iterative reconstruction technique. Findings: No thoracic aortic aneurysmal dilatation Pulmonary artery segments are not enlarged No paratracheal tracheobronchial or bronchopulmonary adenopathy Cavitary parenchymal disease again noted in the right upper lobe similar to the February 29, 2024 exam Mild vascular congestion Minimal pleural disease Trace pericardial effusion No visualized liver splenic lesion Absent gallbladder No pancreatic or adrenal mass Mild ascites Perinephric stranding Normal appendix No bowel obstruction No bladder mass Prominent osteopenia IMPRESSION: No significant change in cavitary parenchymal disease right upper lobe compared to February 29, 2024 Mild vascular congestion Mild ascites Normal appendix No bowel obstruction Distended urinary bladder
--- NOTE | 2024-07-18 05:37 | XR_ITS ---
Examination: AP chest single view Technique one AP portable semiupright chest single view Date and time: July 18, 2024 0617 hours INDICATIONS: Shortness of breath today FINDINGS: Normal heart size Parenchymal disease in the right upper lobe, noted on the February 29, 2024 chest x-ray No pulmonary edema Right internal jugular dialysis catheter tips right atrium Mild pneumonia left base IMPRESSION: Chronic cavitary pain and parenchymal disease right upper lobe again noted Mild pneumonia left base
[2024-07-18] MEDS: cloNIDine HCL 0.1 MG TABLET 0.4 MG PO (06:04)
[2024-07-18] MEDS: LORazepam 2 MG/ML VIAL 1 MG IV (06:08)
[2024-07-18 06:13] LABS: Lactate (Lactic Acid) 2.3 mMol/L (0.4-2.0)
--- NOTE | 2024-07-18 06:18 | PD.EDAMS ---
Altered Mental Status RME/HPI General Chief Complaint: Altered Mental Status Stated Complaint: ALTERED Time Seen by Provider: 07/18/24 06:10 Arrival date/time: 07/18/24 05:23 RME / HPI RME / HPI narrative: DR. BAZZI MAIN ED EVALUATION: 68 year old male presents to the Emergency Department [facility] with complaint of PMHx: Hypertension, ESRD on dialysis, hypothyroidism, diabetes mellitus on insulin, pneumonia, hyponetremia, elevated troponins Social Hx: No tobacco, alcohol, or substance use. Related Data Home Medications ?Medication ?Instructions ?Recorded ?Confirmed aspirin 81 mg tablet,delayed 81 mg PO 1XD 02/29/24 02/29/24 release atorvastatin 80 mg tablet 80 mg PO QDAY 02/29/24 02/29/24 furosemide 40 mg tablet 40 mg PO BID 02/29/24 02/29/24 levothyroxine 50 mcg tablet 50 mcg PO QDAY 02/29/24 02/29/24 omeprazole 20 mg capsule,delayed 20 mg PO 1XD 02/29/24 02/29/24 release sevelamer carbonate 800 mg tablet 800 mg PO TID 02/29/24 02/29/24 Previous Rx's ?Medication ?Instructions ?Recorded hydralazine 25 mg tablet 75 mg (3 x 25 mg) PO TID #30 tabs 03/05/24 nifedipine 60 mg tablet,extended 60 mg PO QPM #30 tabs 03/05/24 release carvedilol 12.5 mg tablet (Coreg) 12.5 mg PO BID #60 tabs 03/06/24 Allergies Allergy/AdvReac Type Severity Reaction Status Date / Time No Known Allergies Allergy Verified 07/28/22 16:17 Course Orders Category Date Time Status Bedside COVID-19 Antigen Test NOW Care 07/18/24 05:36 Active Bedside Influenza A&B Antigen Test NOW Care 07/18/24 05:36 Completed EKG (ED ONLY) *Do not use* NOW Care 07/18/24 05:37 Completed Saline [Insert IV] NOW Care 07/18/24 05:36 Active Straight [In and Out Catheter] X1 Care 07/18/24 05:[address] chest abdomen pelvis wo Stat Exams 07/18/24 05:[address] head/brain wo con Stat Exams 07/18/24 05:37 Ordered EKG (ED Only) Stat Exams 07/18/24 05:37 Draft XR chest 1V portable Stat Exams 07/18/24 05:37 Ordered Alcohol, Blood Medical Stat Lab 07/18/24 05:38 Ordered Ammonia Stat Lab 07/18/24 05:38 Ordered BNP [B-Type Natriuretic Peptide] Stat Lab 07/18/24 05:38 Ordered Beta Hydroxybutyrate Stat Lab 07/18/24 05:38 Ordered Bilirubin,Direct Stat Lab 07/18/24 05:38 Ordered Blood Culture (Lab) Stat Lab 07/18/24 05:38 Ordered CBC Stat Lab 07/18/24 05:38 Ordered CMP [Comprehensive Metabolic Panel] Stat Lab 07/18/24 05:38 Ordered CRP [C-Reactive Protein] Stat Lab 07/18/24 05:38 Ordered Drug Screen,Urine Stat Lab 07/18/24 05:38 Ordered ESR [Sed Rate (ESR)] Stat Lab 07/18/24 05:38 Ordered Free T4 (Free Thyroxine) Stat Lab 07/18/24 05:38 Ordered Lactate (Lactic Acid) Stat Lab 07/18/24 05:39 Ordered Magnesium Stat Lab 07/18/24 05:38 Ordered PT [Prothrombin Time with INR] Stat Lab 07/18/24 05:39 Ordered PTT [Partial Thromboplastin Time] Stat Lab 07/18/24 05:39 Ordered Procalcitonin Stat Lab 07/18/24 05:39 Ordered TSH [Thyroid Stimulating Hormone] Stat Lab 07/18/24 05:38 Ordered Troponin I Stat Lab 07/18/24 05:38 Ordered UA, C/S IF [Urinalysis, C/S if Indicated] Stat Lab 07/18/24 05:39 Ordered VBG [Venous Blood Gas] Stat Lab 07/18/24 05:39 Ordered LORazepam [Ativan Inj] Med 07/18/24 06:15 Discontinued 1 mg IV X1 ONE LORazepam [Ativan Inj] Med 07/18/24 06:01 Discontinued 2 mg .ROUTE .STK-MED ONE cloNIDine HCL [Catapres] Med 07/18/24 05:36 Discontinued 0.4 mg PO X1 ONE Vital Signs Vital signs: Vital Signs Temperature 97.5 F 07/18/24 05:29 Pulse Rate 76 07/18/24 05:29 Respiratory Rate 18 07/18/24 05:29 Blood Pressure 217/96 H 07/18/24 05:29 Pulse Oximetry (%) 99 07/18/24 05:29 Oxygen Delivery Method Room Air 07/18/24 05:29 Altered Mental Status MDM Narrative MDM Narrative:: I, Sylvia Browne, marilyn scribing for and in the presence of Dr. Bazzi. Medications / Prescriptions Medication administrations:: Medication Administration History Discontinued Medications Clonidine (Clonidine Hcl 0.1 Mg Tablet) 0.4 mg PO X1 ONE Stop: 07/18/24 05:37 Last Admin: 07/18/24 06:04 Dose: 0.4 mg Documented By: AMY Lorazepam (Lorazepam 2 Mg/Ml Vial) 1 mg IV X1 ONE Stop: 07/18/24 06:16 Last Admin: 07/18/24 06:08 Dose: 1 mg Documented By: SANDIP Lorazepam (Lorazepam 2 Mg/Ml Vial) Confirm Administered Dose 2 mg .ROUTE .STK-MED ONE Stop: 07/18/24 06:02 Last Admin: 07/18/24 06:08 Dose: Not Given Documented By: SANDIP Non-Admin Reason: Override Medication Discharge Plan Prescriptions/Referrals Prescriptions/Med Rec: No Action furosemide 40 mg tablet 40 mg PO BID Patient Comments: TAKE 1 TABLET BY MOUTH TWICE DAILY atorvastatin 80 mg Tablet 80 mg PO QDAY aspirin 81 mg tablet,delayed release (DR/EC) 81 mg PO 1XD Patient Comments: TAKE 1 TABLET BY MOUTH ONCE DAILY omeprazole 20 mg capsule,delayed release(DR/EC) 20 mg PO 1XD Patient Comments: TAKE 1 CAPSULE BY MOUTH ONCE DAILY sevelamer carbonate 800 mg Tablet 800 mg PO TID Rx Instructions: must administer with a meal/food levothyroxine 50 mcg Tablet 50 mcg PO QDAY hydralazine 25 mg tablet 75 mg PO TID Qty: 30 0RF Patient Comments: TAKE 3 TABLETS BY MOUTH THREE TIMES DAILY Rx Instructions: Hold if SBP drop below 100 and DBP below 60 mmHg nifedipine 60 mg tablet extended release 60 mg PO QPM Qty: 30 0RF Patient Comments: TAKE 1 TABLET BY MOUTH ONCE DAILY Rx Instructions: Hold if SBP drop below 100 and DBP below 60 mmHg carvedilol [Coreg] 12.5 mg tablet 12.5 mg PO BID Qty: 60 2RF Rx Instructions: must administer with a meal/food Patient/Caregiver Discharge Instructions Print Language: B[place]
[2024-07-18 06:23] LABS: Basophils # (Auto) 0.1 Thou/mm3 (0.0-0.2); Basophils % (Auto) 1 % (0-2.5); Eosinophils # (Auto) 0.1 Thou/mm3 (0.0-0.5); Eosinophils % (Auto) 1 % (0-10); Hematocrit 34.7 % (41.0-53.0); Hemoglobin 11.8 g/dL (13.5-16.0); Immature Granulocytes % (Auto) 1 % (0-0); Immature Granulocytes Auto 0.07 Thou/mm3 (0.00-0.00); Lymphocytes # (Auto) 0.6 Thou/mm3 (1.0-4.8); Lymphocytes % (Auto) 9 % (10-50); Mean Corpuscular Hemoglobin 29.6 pg (25.0-35.0); Mean Corpuscular Volume 87 fL (80-100); Monocytes # (Auto) 0.7 Thou/mm3 (0.0-0.8); Monocytes % (Auto) 10 % (0-12); Neutrophils % (Auto) 78 % (37-80); Nucleated Red Blood Cell % 0 /100 WBC (0); Platelet Count 250 Thou/mm3 (140-440); Red Blood Count 3.99 Miln/mm3 (4.50-5.90); White Blood Count 6.5 Thou/mm3 (3.8-10.6)
--- NOTE | 2024-07-18 06:26 | PD.EDADULT ---
ED General RME/HPI General Chief complaint: Altered Mental Status Stated complaint: ALTERED Time Seen by Provider: 07/18/24 06:10 Arrival date/time: 07/18/24 05:23 Limitations: no limitations RME / HPI RME / HPI narrative: DR. ROSALES MAIN ED EVALUATION: 68 year old male with past medical history of hypertension, ESRD on dialysis, hypothyroidism, diabetes mellitus on insulin, pneumonia, hyponetremia, elevated troponins, hyperlipidemia presents to the Emergency Department [facility] with complaint of altered mental status. Patient is from a custodial and today went to dialysis but they could not start it because he was more combative and altered than usual; he has dementia history but today they said it was more than usual. Patient also reported left arm pain to the nurse. No further history at this time. Related Data Home Medications ?Medication ?Instructions ?Recorded ?Confirmed aspirin 81 mg tablet,delayed 81 mg PO 1XD 02/29/24 02/29/24 release atorvastatin 80 mg tablet 80 mg PO QDAY 02/29/24 02/29/24 furosemide 40 mg tablet 40 mg PO BID 02/29/24 02/29/24 levothyroxine 50 mcg tablet 50 mcg PO QDAY 02/29/24 02/29/24 omeprazole 20 mg capsule,delayed 20 mg PO 1XD 02/29/24 02/29/24 release sevelamer carbonate 800 mg tablet 800 mg PO TID 02/29/24 02/29/24 Previous Rx's ?Medication ?Instructions ?Recorded hydralazine 25 mg tablet 75 mg (3 x 25 mg) PO TID #30 tabs 03/05/24 nifedipine 60 mg tablet,extended 60 mg PO QPM #30 tabs 03/05/24 release carvedilol 12.5 mg tablet (Coreg) 12.5 mg PO BID #60 tabs 03/06/24 Allergies Allergy/AdvReac Type Severity Reaction Status Date / Time No Known Allergies Allergy Verified 07/28/22 16:17 Review of Systems Review of Systems ROS Unobtainable: unobtainable due to mental status and unobtainable due to medical condition Past Medical History Past Medical History CARDIAC: Positive Hypercholesterolemia and Hypertension GENITOURINARY: Positive Renal Disease and Dialysis ENDOCRINE: Positive Diabetes Mellitus Type 2 Social History SMOKING STATUS: Unknown if ever smoked SECOND HAND EXPOSURE: No SUBSTANCE USE: unknown ED Exam General Limitations: Present no limitations General appearance: Present in no apparent distress and other (confused, poor historian, dementia history) Head Head exam: Present atraumatic, normocephalic and normal inspection Eye Eye exam: Present normal appearance, PERRL and EOMI ENT ENT exam: Present normal exam, normal oropharynx and mucous membranes moist Neck Neck exam: Present normal inspection, full ROM and trachea midline Chest Chest inspection: Present normal inspection and symmetric chest wall rise Respiratory Respiratory exam: Present normal lung sounds bilaterally Cardiovascular Cardiovascular exam: Present regular rate, normal rhythm and normal heart sounds Abdominal Exam Abdominal exam: Present soft and normal bowel sounds Extremities Exam Extremities exam: Present normal inspection and full ROM Back Exam Back exam: Present normal inspection and full ROM Neurological Exam Neurological exam: Present other (confused) Psychiatric Psychiatric exam: Present agitated Skin Skin exam: Present warm, dry, intact and normal color Course Quality Measures Current suspected stage: sepsis Possible source: unknown Blood cultures ordered: yes Antibiotic ordered: Yes Pertinent labs: 07/18/24 07/18/24 05:51 09:32 Lactic Acid 2.3 H mMol/L 1.2 mMol/L (0.4-2.0) (0.4-2.0) Procalcitonin 0.23 ng/ml (0.0-0.49) 0751: Sepsis alert initiated. Orders made at this time are congruent with ED Adult Sepsis Order List. Re-evaluation is to be completed. 0820: Sepsis reassessment performed consisting of lab review, vitals, physical exam including auscultation of heart, lungs, and visual evaluation of capillary refills, mucosal membranes and extremities. sepsis Orders Category Date Time Status Bedside COVID-19 Antigen Test NOW Care 07/18/24 05:36 Active Bedside Influenza A&B Antigen Test NOW Care 07/18/24 05:36 Completed COVID-19 Screening Questionnaire NOW Care 07/18/24 10:57 Completed COVID-19 Screening Questionnaire NOW Care 07/18/24 11:17 Completed COVID-19 Screening Questionnaire NOW Care 07/18/24 11:18 Completed Decision to Admit X1 Care 07/18/24 10:56 Completed Decision to Admit X1 Care 07/18/24 11:17 Completed Decision to Admit X1 Care 07/18/24 11:18 Completed Dialysis [Hemodialysis] Urgent Care 07/18/24 09:31 Active EKG (ED ONLY) *Do not use* NOW Care 07/18/24 05:37 Completed Garcia to Russell Routine Care 07/18/24 09:37 Ordered Saline [Insert IV] NOW Care 07/18/24 05:36 Active Straight [In and Out Catheter] X1 Care 07/18/24 05:[address] chest abdomen pelvis wo Stat Exams 07/18/24 05:[address] head/brain wo con Stat Exams 07/18/24 05:37 Completed EKG (ED Only) Stat Exams 07/18/24 05:37 Draft XR chest 1V portable Stat Exams 07/18/24 05:37 Completed Alcohol, Blood Medical Stat Lab 07/18/24 05:51 Completed Ammonia Stat Lab 07/18/24 05:51 Completed BNP [B-Type Natriuretic Peptide] Stat Lab 07/18/24 05:51 Completed Beta Hydroxybutyrate Stat Lab 07/18/24 05:51 Completed Bilirubin,Direct Stat Lab 07/18/24 05:51 Completed Blood Culture (Lab) Stat Lab 07/18/24 05:51 Received CBC Stat Lab 07/18/24 05:51 Completed CMP [Comprehensive Metabolic Panel] Stat Lab 07/18/24 05:51 Completed CRP [C-Reactive Protein] Stat Lab 07/18/24 05:51 Completed Drug Screen,Urine Stat Lab 07/18/24 06:26 Completed ESR [Sed Rate (ESR)] Stat Lab 07/18/24 05:51 Completed Free T4 (Free Thyroxine) Stat Lab 07/18/24 05:51 Completed Lactate (Lactic Acid) Stat Lab 07/18/24 05:51 Completed Lactic Acid, 3 HR Stat Lab 07/18/24 09:32 Completed Magnesium Stat Lab 07/18/24 05:51 Completed PT [Prothrombin Time with INR] Stat Lab 07/18/24 05:51 Completed PTT [Partial Thromboplastin Time] Stat Lab 07/18/24 05:51 Completed Procalcitonin Stat Lab 07/18/24 05:51 Completed TSH [Thyroid Stimulating Hormone] Stat Lab 07/18/24 05:51 Completed Troponin I Stat Lab 07/18/24 05:51 Completed Troponin I Stat Lab 07/18/24 09:32 Completed UA, C/S IF [Urinalysis, C/S if Indicated] Stat Lab 07/18/24 06:26 Completed VBG [Venous Blood Gas] Stat Lab 07/18/24 07:48 Completed ALBUTEROL RT 3ml [Proventil Rt 3ml] Med 07/18/24 06:29 Discontinued 2.5 mg INH X1 ONE Albumin Human 25% Ivpb [Albuminar-25 Ivpb] Med 07/18/24 09:30 Active 25 gm in 100 ml IV PRN Doxycycline Inj [Vibramycin Inj] 100 mg Med 07/18/24 06:27 Discontinued Sodium Chloride 0.9% (Pop) [NS 0.9% mini bag] 100 ml IV X1 Insulin Regular Med 07/18/24 11:16 Discontinued 8 unit SC X1 ONE LORazepam [Ativan Inj] Med 07/18/24 06:15 Discontinued 1 mg IV X1 ONE LORazepam [Ativan Inj] Med 07/18/24 06:01 Discontinued 2 mg .ROUTE .STK-MED ONE cefTRIAXone [Rocephin] 2 gm Med 07/18/24 06:27 Discontinued SODIUM CHLORIDE 0.9% (Popper) [Ns 0.9% (P)] 50 ml IV QDAY cefTRIAXone [Rocephin] 2 gm Med 07/19/24 09:00 Active SODIUM CHLORIDE 0.9% (Popper) [Ns 0.9% (P)] 50 ml IV QDAY cloNIDine HCL [Catapres] Med 07/18/24 05:36 Discontinued 0.4 mg PO X1 ONE hydrALAZINE INJ [Apresoline Inj] Med 07/18/24 06:20 Discontinued 5 mg IVP X1 ONE Vital Signs Vital signs: Vital Signs Temperature 97.5 F 07/18/24 05:29 Pulse Rate 76 07/18/24 05:29 Respiratory Rate 18 07/18/24 05:29 Blood Pressure 217/96 H 07/18/24 05:29 Pulse Oximetry (%) 99 07/18/24 05:29 Oxygen Delivery Method Room Air 07/18/24 05:29 Critical Care Time Critical Care Time Critical Care Time: Yes Total Critical Care Time (min.): 45 Attestation: The high probability of sudden, clinically significant deterioration in the patient?s condition required the highest level of my preparedness to intervene urgently. The services I provided to this patient were to treat and/or prevent clinically significant deterioration. Services included the following: chart data review, reviewing nursing notes and/or old charts, documentation time, senior talent management consultant collaboration regarding findings and treatment options, medication orders and management, direct patient care, vital sign assessments and ordering, interpreting and reviewing diagnostic studies and lab tests. Aggregate critical care time includes only time during which I was engaged in work directly related to the patient?s care, as described above, whether at bedside or elsewhere in the Emergency Department. It did not include time spent performing other reported procedures or the services of residents, students, nurses or physician assistants. Discharge Plan Plan Patient Disposition: Admit Acute Care w/in Hospital Problem List Clinical Impression: Sepsis, Pneumonia, Acute encephalopathy, Hypertensive emergency MDM Narrative [facility] hospital course: I, Sylvia Browne am scribing for and in the presence of Dr. Rosales. Clinical Information Provided by patient and EMS Medical Records Reviewed [facility], EMS and skilled nursing Meds/Rx Considered, not Ordered None Labs/Rad/Tests considered, not Ordered None Chronic Illness/Social Conditions Add or document further as needed: Hypertension, ESRD on dialysis, hypothyroidism, diabetes mellitus on insulin, pneumonia, hyponetremia, elevated troponins, hyperlipidemia. EKG Interpretation EKG #1: Date/time of EK07/18/24 5:49 am EKG interpretation: sinus rhythm, rate 77, LVH, no ST-T wave changes, CO interval 149 ms, QRS duration 78 ms, QT/QTc 376/408, P-R-T axis 56, 49, 74 Imaging Radiology reports / interpretation(s): Procedure(s): XR chest 1V portable Accession Number(s): [id number] cc: Curly Butterfield MD; Reggie Lee MD; NO PRIMARY/FAMILY,PHYSICIAN~ Examination: AP chest single view Technique one AP portable semiupright chest single view Date and time: July 18, 2024 0617 hours INDICATIONS: Shortness of breath today FINDINGS: Normal heart size Parenchymal disease in the right upper lobe, noted on the February 29, 2024 chest x-ray No pulmonary edema Right internal jugular dialysis catheter tips right atrium Mild pneumonia left base IMPRESSION: Chronic cavitary pain and parenchymal disease right upper lobe again noted Mild pneumonia left base Dictated By: Reggie Lee MD Procedure(s): CT head/brain wo con Accession Number(s): [id number] cc: Curly Butterfield MD; Reggie Lee MD; NO PRIMARY/FAMILY,PHYSICIAN~ Examination: CT brain head without contrast. 2-D sagittal coronal reconstructions Date and time of exam:July 14, 2024 0730 hours INDICATIONS: Altered mental status this morning CTDI: vol (mGy):53.3 DLP: (mGycm):996 Technique: Multiple CT axial sections of the brain have been obtained, 5 mm slice thickness. Contrast has not been administered. 2-D sagittal, coronal reconstructions have been obtained Low dose protocols were performed. One or more of the following dose reduction techniques were used; automated exposure control, adjustment of the mA and/or KV according to patient size, use of iterative reconstruction technique. Findings: No significant ventricular enlargement. Intra-axial or extra-axial hemorrhage density is not seen. No mass effect or midline shift Basal cisterns are not remarkable. Fourth ventricle is midline. Cranial vault intact. Impression: Negative for acute hemorrhage, mass effect or midline shift Advise clinical correlation follow up accordingly Dictated By: Reggie Lee MD Procedure(s): CT chest abdomen pelvis wo Accession Number(s): [id number] cc: Curly Butterfield MD; Reggie Lee MD; NO PRIMARY/FAMILY,PHYSICIAN~ Examination: CT chest, without intravenous contrast. CT abdomen, without intravenous contrast. CT pelvis, without intravenous contrast. 2-D sagittal and coronal reconstructions. 3-D reconstructions. Date and time of exam:Jul 18 2024 0725 hours INDICATIONS: Chest pain abdominal pain this morning CTDI vol (mgy) 10.4 DLP (MGycm)720 Technique: Multiple CT images, 3.0 mm slice thickness, obtained chest, abdomen, pelvis, with the high-resolution 64 slice scanner.. Sagittal and coronal 2-D reconstructions are obtained. 3-D reconstructions Low dose protocols were performed. One or more of the following dose reduction techniques were used; automated exposure control, adjustment of the mA and/or KV according to patient size, use of iterative reconstruction technique. Findings: No thoracic aortic aneurysmal dilatation Pulmonary artery segments are not enlarged No paratracheal tracheobronchial or bronchopulmonary adenopathy Cavitary parenchymal disease again noted in the right upper lobe similar to the February 29, 2024 exam Mild vascular congestion Minimal pleural disease Trace pericardial effusion No visualized liver splenic lesion Absent gallbladder No pancreatic or adrenal mass Mild ascites Perinephric stranding Normal appendix No bowel obstruction No bladder mass Prominent osteopenia IMPRESSION: No significant change in cavitary parenchymal disease right upper lobe compared to February 29, 2024 Mild vascular congestion Mild ascites Normal appendix No bowel obstruction Distended urinary bladder Dictated By: Reggie Lee MD Medication Administration(s) Medication Administration History Acetaminophen (Acetaminophen 325 Mg Tablet) 650 mg PO Q6H PRN PRN Reason: Pain 1-3 and/or Fever >100.1 Stop: 08/17/24 11:24 Dextrose (Dextrose 50%-Water Inj 50 Ml Syringe) 25 ml IV Q15MIN PRN PRN Reason: BG 50-70 responsive npo pt Stop: 08/17/24 11:52 Dextrose (Dextrose 50%-Water Inj 50 Ml Syringe) 50 ml IV Q15MIN PRN PRN Reason: BG <50 OR BG <70 & pt unresponsive Stop: 08/17/24 11:52 Glucagon (Glucagon Inj 1 Mg Vial) 1 mg IM Q15MIN PRN PRN Reason: BG <70, and no IV access Ceftriaxone Sodium 2 gm/ (Sodium Chloride) 50 mls @ 100 mls/hr IV QDAY JOSE EDUARDO Stop: 07/26/24 08:59 Albumin Human (Albuminar-25 Ivpb) 25 gm in 100 mls @ 100 mls/min IV PRN PRN PRN Reason: DIALYSIS Stop: 07/21/24 09:29 Insulin Human Lispro (Insulin Lispro (Admelog) 1 Unit/0.01 Ml Unit) 0 unit SC ACHS [facility]; Protocol Stop: 08/17/24 16:59 Levothyroxine Sodium (Levothyroxine Sodium 25 Mcg Tablet) 50 mcg PO ACBR JOSE EDUARDO Stop: 08/18/24 05:59 Ondansetron HCl (Ondansetron Inj 2 Mg/Ml Inj 2 Ml) 4 mg IVP Q6H PRN; Protocol PRN Reason: NAUSEA OR VOMITING Stop: 08/17/24 11:24 Oxycodone/Acetaminophen (Oxycodone/Apap 5/325 Tablet) 1 tab PO Q6H PRN PRN Reason: PAIN SCALE 4-6 (Moderate Stop: 07/23/24 11:24 Sennosides (Senna Tablet) 1 tab PO QDAY [facility]; Protocol Stop: 08/18/24 08:59 Discontinued Medications Albuterol (Albuterol Rt 2.5 Mg/3 Ml Nebu) 2.5 mg INH X1 ONE Stop: 07/18/24 06:30 Last Admin: 07/18/24 06:50 Dose: 2.5 mg Documented By: MR Clonidine (Clonidine Hcl 0.1 Mg Tablet) 0.4 mg PO X1 ONE Stop: 07/18/24 05:37 Last Admin: 07/18/24 06:04 Dose: 0.4 mg Documented By: AMY Hydralazine HCl (Hydralazine Inj 20 Mg/Ml Vial) 5 mg IVP X1 ONE Stop: 07/18/24 06:21 Last Admin: 07/18/24 08:57 Dose: 5 mg Documented By: JIE Comments: Ceftriaxone Sodium 2 gm/ (Sodium Chloride) 50 mls @ 100 mls/hr IV QDAY JOSE EDUARDO Stop: 07/25/24 06:26 Last Admin: 07/18/24 09:05 Dose: Not Given Documented By: JIE Non-Admin Reason: Other, see note Comments: MEDICATION RE-SCHEDULED BY PHARMACY; PT ALREADY RECEIVED DOSE PRIOR. Infusion: 07/18/24 07:30 Dose: Infused Documented By: Admin: 07/18/24 06:45 Dose: 100 mls/hr Documented By: DT Doxycycline Hyclate 100 mg/ (Sodium Chloride) 100 mls @ 100 mls/hr IV X1 ONE Stop: 07/18/24 07:26 Last Infusion: 07/18/24 08:59 Dose: Infused Documented By: Admin: 07/18/24 07:57 Dose: 100 mls/hr Documented By: GM Insulin Human Regular (Insulin Hum Regular 1 Unit/0.01 Ml (Per Unit)) 8 unit SC X1 ONE Stop: 07/18/24 11:17 Last Admin: 07/18/24 11:38 Dose: Not Given Documented By: EF Non-Admin Reason: Cancelled by Provider Lactulose (Lactulose Syrup 20 Gm/30 Ml Udc) 20 gm PO X1 ONE; Protocol Stop: 07/18/24 11:29 Last Admin: 07/18/24 11:40 Dose: 20 gm Documented By: EF Lorazepam (Lorazepam 2 Mg/Ml Vial) 1 mg IV X1 ONE Stop: 07/18/24 06:16 Last Admin: 07/18/24 06:08 Dose: 1 mg Documented By: SANDIP Lorazepam (Lorazepam 2 Mg/Ml Vial) Confirm Administered Dose 2 mg .ROUTE .STK-MED ONE Stop: 07/18/24 06:02 Last Admin: 07/18/24 06:08 Dose: Not Given Documented By: AC Non-Admin Reason: Override Medication Consultations/Discussions re: Management Consult #1: Date/time: 07/18/24 1118 hours Physician, specialty, service, details: Discussed test HPI, PMHx, lab, radiology results and/or management with resident working with the hospitalist. Will admit for further evaluation and management. Accepts patient for admission. Diagnosis Differential diagnosis: TIA, CVA, UTI Most likely dx, and/or detailed dx discussion: Acute encephalopathy Hypertensive emergency Sepsis Pneumonia Dispositon Disposition: Admit
[2024-07-18 06:32] LABS: INR 1.1 (0.9-1.3); Prothrombin Time 11.5 Seconds (9.0-12.2)
[2024-07-18 06:36] LABS: Collection Type, Urine Clean Catch
[2024-07-18 06:41] LABS: Ammonia 34 uMol/L (11-32)
[2024-07-18] MEDS: cefTRIAXone 2 GM in SODIUM CHLORIDE 0.9% (Popper) 50 ML IV (06:45)
[2024-07-18] MEDS: ALBUTEROL RT 2.5 MG/3 ML NEBU INH (06:50)
[2024-07-18 06:53] LABS: Sed Rate (ESR) 76 mm/hr (0-20)
[2024-07-18 07:05] LABS: Bilirubin,Urine Negative (Negative); Blood,Urine Trace (Negative); Clarity,Urine Clear (Clear/Hazy); Culture Indicated,Urine Not Indicated; Glucose, Urine 4+ (Negative); Ketones,Urine Negative (Negative); Leukocyte Esterase,Urine Negative (Negative); Nitrite,Urine Negative (Negative); Protein,Urine 1+ (Neg - Trace); RBC,Urine 1 /hpf (0-3); Specific Gravity,Urine 1.006 (1.001-1.035); Squamous Epithelial Cell,Urine 1 /hpf (0-5); Transitional Epi Cells,Urine < 1 /hpf (0-5); Urobilinogen,Urine Negative mg/dL (0.0-1.0); WBC,Urine 2 /hpf (0-5)
[2024-07-18 07:13] LABS: Color,Urine Lt-Yellow (Lt Yel-Yel)
[2024-07-18 07:16] LABS: Amphetamine/Methamp Scrn,U Negative (Negative); Barbiturate Screen,Urine Negative (Negative); Benzodiazepines Screen,Urine Negative (Negative); Benzoylecgonine Screen, Ur Negative (Negative); Fentanyl Screen,Urine Negative (Negative); Opiate Screen,Urine Negative (Negative); THC Screen,Urine Negative (Negative)
--- NOTE | 2024-07-18 07:20 | PC.NURSE ---
REPORT RECEIVED AT THIS TIME FROM LORRAINE GOLDMAN RN; PER REPORT, PT C/O AMS.PT BIBA. PT PMH OF DIALYSIS AND KIDNEY FAILURE. PER , PT HAS BEEN CONFUSED FOR 3-4 DAYS NOW. PT GIVEN 1MG OF ATIVAN TO HELP CALM PT DUE TO EXCESS PT MOVEMENT IN [facility]; PT A HIGH FALL RISK. PT ON NASAL CANNULA FOR OXYGEN UPPORT @2L S/P ATIVAN ADMINISTRATION. PT HYPERTENSIVE; PT GIVEN 0.4MG CLONIDINE. PT AT BED AT THIS TIME; NO ACUTE DISTRESS NOTED BUT PT CONITNUES TO MOVE EXCESSIVELY IN BED WITH EYES CLOSED. MICKEY FORENSIC TOXICOLOGIST MADE AWARE PT IS A HIGH FALL RISK; PER MICKEY FORENSIC TOXICOLOGIST, WILL ASSIGN SITTER FOR PT.
[2024-07-18 07:53] LABS: Base Excess, Venous -2 (-3-3); O2 Saturation, Venous 74 % (96-97); PCO2, Venous 38 mmHg (36-56); PO2, Venous 40 mmHg (15-58); pH, Venous 7.38 (7.33-7.66)
[2024-07-18] MEDS: DOXYCYCLINE INJ 100 MG in SODIUM CHLORIDE 0.9% (POP) 100 ML IV (07:57)
[2024-07-18 07:58] LABS: Alanine Aminotransferase 15 U/L (10-49); Albumin, Serum 4.3 gm/dL (3.4-4.8); Alcohol, Blood Medical < 3.0 mg/dL (0-10.0); Alkaline Phosphatase 174 U/L (46-116); Anion Gap 17 (7-16); Aspartate Amino Transferase 20 U/L (0-34); BUN/Creatinine Ratio 10 Ratio (12-20); Bilirubin,Direct 0.3 mg/dL (0.0-0.3); Blood Urea Nitrogen 42 mg/dL (9-23); Calcium 10.1 mg/dL (8.3-10.6); Calcium (Corrected) 10.1 mg/dL (8.5-10.1); Carbon Dioxide 15.1 mMol/L (20.0-31.0); Chloride 95 mMol/L (98-107); Creatinine (Component) 4.4 mg/dL (0.6-1.3); Estimated Creatinine Clearance 13.8 mL/min (>60); Globulin 4.5 gm/dL (2.3-3.5); Glucose 383 mg/dL (74-106); Magnesium 2.8 mg/dL (1.6-2.6); Osmolality,Calculated 281 (275-295); Potassium 4.6 mMol/L (3.4-5.1); Sodium 127 mMol/L (136-145); Thyroid Stimulating Hormone 7.61 uIU/mL (0.55-4.78); Total Protein 8.8 gm/dL (5.7-8.2); eGFR 14 See Note
[2024-07-18 08:14] LABS: Troponin I 0.046 ng/mL (0.0-0.045)
[2024-07-18 08:34] LABS: B-Type Natriuretic Peptide 623 pg/mL (0-100)
[2024-07-18] MEDS: hydrALAZINE INJ 20 MG/ML VIAL 5 MG IVP (08:57)
[2024-07-18 09:19] LABS: C-Reactive Protein < 0.5 mg/dL (0.0-0.9)
[2024-07-18 09:25] LABS: Reflex Lactate? Y
[2024-07-18 09:39] LABS: Lactic Acid, 3 HR 1.2 mMol/L (0.4-2.0)
[2024-07-18 09:41] LABS: Beta Hydroxybutyrate 0.1 mmol/L (<0.6)
[2024-07-18 10:26] LABS: Procalcitonin 0.23 ng/ml (0.0-0.49)
--- NOTE | 2024-07-18 11:30 | PD.RESHP ---
Documentation for date of: 07/18/24 HPI History of Present Illness Chief complaint: Altered mental status History of present illness: 68 year old male with significant past medical history of hypertension, ESRD on HD [Thursday/Thursday] with Dr. Dinh, hypothyroidism, insulin-dependent type-2 diabetes was brought in from SNF to the ED for altered mental status. Patient apparently had dialysis session scheduled but they were not able to complete due to altered mental status. Previously, the patient had been complaing of left arm pain to care providers at the SNF but otherwise no noted fever/chills, chest pain or syncope noted. Patient has a recent hospitalization is February 2024 for pneumonia and hypertensive emergency requiring IV antibiotics and since then has been at the SNF. Unable to obtain much history from the patient as his mental status waxes and wanes. He opens his eyes and answers with 1-2 words then closes his eyes. Will contact patient's and acquire more history. Past medical history: Hypertension, ESRD on HD [Thursday/Thursday], hypothyroidism, diabetes mellitus on insulin Past surgical history: Cholecystectomy Allergies: NKDA Medications: Pending med rec Family history: Noncontributory Social history: Denies smoking, alcohol, other illicit drug abuse. ROS: Unable to obtain In the ED, patient presented in hypertensive emergency 217/96, HR 76, RR 18, T of 97.5 and satting 99 on room air. Pertinent findings included blood glucose 350, WBC 6.5, Hgb of 11.8 with MCV of 87, VBG showing pCO2 of 38, pO2 of 40 and pH of 7.38, sodium of 127, chloride 95, anion gap of 17, BUN 42, Cr 4.4, lactic acid initially 2.3 downtrended to 1.2, mag 2.8, ammonia of 34, troponin 0.046, BNP of 623, TSH 7.61 and free T4 of 1.10. Urinalysis negative for infection, utox negative. CXR showed Chronic cavitary pain and parenchymal disease right upper lobe again noted and mild pneumonia left base, CT Abd/P showed the parenchymal disease, mild vascular congestion and distended bladder, Head CT was negative for any acute findings. EKG was normal sinus rhythm with possible LVH and LA enlargement. Patient will be admitted for acute encephalopathy secondary to metabolics vs. hypertensive emergency and nephrology will be consulted for emergent need for hemodialysis Exam Vital Signs Temp Pulse Resp BP Pulse Ox O2 Del Method O2 Flow Rate 98.7 F 54 L 13 157/84 H 100 Nasal Cannula 2 07/18/24 10:35 07/18/24 10:35 07/18/24 10:35 07/18/24 10:35 07/18/24 10:35 07/18/24 10:35 07/18/24 10:35 Narrative Exam Physical Exam: GENERAL: Somnolent, appears stated age HEENT: NC/AT. Moist mucosa. PERRLA/EOMI. CARDIO: Heart RRR, no obvious murmurs, no JVD. PULM: No coughing or visible SOB. Lungs CTA B/L. GI: Abdomen soft, NT/ND, +BS. URO/WHOLESALE BUYER: +Garcia catheter SKIN/MSK/EXT: R TNC present. No wounds/discoloration/rashes/edema/amputations. +Pedal pulses present B/L. NEURO: Oriented x2 (person/birthday) - not to place or purpose. Moves extremities x4, no focal neurological deficits noted. Results: Labs 07/19/24 04:42 07/19/24 04:42 Labs: Short CBC 07/18/24 Range/Units 05:51 WBC 6.5 (3.8-10.6) Thou/mm3 Hgb 11.8 L (13.5-16.0) g/dL Hct 34.7 L (41.0-53.0) % Plt Count 250 (140-440) Thou/mm3 BMP 07/18/24 05:51 Sodium 127 L Potassium 4.6 Chloride 95 L Carbon Dioxide 15.1 L BUN 42 H Creatinine 4.4 H* D Glucose 383 H Calcium 10.1 Cardiac Enzymes 07/18/24 Range/Units 05:51 Troponin I 0.046 H* (0.0-0.045) ng/mL Liver Function 07/18/24 Range/Units 05:51 Total Bilirubin 1.0 (0.3-1.2) mg/dL Direct Bilirubin 0.3 (0.0-0.3) mg/dL AST 20 (0-34) U/L ALT 15 (10-49) U/L Alkaline Phosphatase 174 H (46-116) U/L Albumin 4.3 (3.4-4.8) gm/dL Urine 07/18/24 Range/Units 06:26 Urine Color Lt-Yellow (Lt Yel-Yel) Urine Clarity Clear (Clear/Hazy) Urine pH 7.0 (5.0-7.0) Ur Specific [place] 1.006 (1.001-1.035) Urine Protein 1+ A (Neg - Trace) Urine Glucose (UA) 4+ A (Negative) ABG Interpretation ABG results: 07/18/24 07:48 VBG pH 7.38 VBG pCO2 38 VBG pO2 40 VBG Base Excess -2 Quality Measures Quality Measures sepsis Current suspected stage: sepsis Possible source: unknown Blood cultures ordered: yes Antibiotic ordered: Yes Advance care planning discussed with:: patient Medications Home Medications and Allergies Home Medications ?Medication ?Instructions ?Recorded ?Confirmed ?Type aspirin 81 mg tablet,delayed 81 mg PO 1XD 02/29/24 02/29/24 History release atorvastatin 80 mg tablet 80 mg PO QDAY 02/29/24 02/29/24 History furosemide 40 mg tablet 40 mg PO BID 02/29/24 02/29/24 History levothyroxine 50 mcg tablet 50 mcg PO QDAY 02/29/24 02/29/24 History omeprazole 20 mg capsule,delayed 20 mg PO 1XD 02/29/24 02/29/24 History release sevelamer carbonate 800 mg tablet 800 mg PO TID 02/29/24 02/29/24 History Allergies Allergy/AdvReac Type Severity Reaction Status Date / Time No Known Allergies Allergy Verified 07/28/22 16:17 Visit Medications Acetaminophen (Acetaminophen 325 Mg Tablet) 650 mg PO Q6H PRN PRN Reason: Pain 1-3 and/or Fever >100.1 Stop: 08/17/24 11:24 Ceftriaxone Sodium 2 gm/ (Sodium Chloride) 50 mls @ 100 mls/hr IV QDAY JOSE EDUARDO Stop: 07/26/24 08:59 Albumin Human (Albuminar-25 Ivpb) 25 gm in 100 mls @ 100 mls/min IV PRN PRN PRN Reason: DIALYSIS Stop: 07/21/24 09:29 Lactulose (Lactulose Syrup 20 Gm/30 Ml Udc) 20 gm PO X1 ONE; Protocol Stop: 07/18/24 11:29 Ondansetron HCl (Ondansetron Inj 2 Mg/Ml Inj 2 Ml) 4 mg IVP Q6H PRN; Protocol PRN Reason: NAUSEA OR VOMITING Stop: 08/17/24 11:24 Oxycodone/Acetaminophen (Oxycodone/Apap 5/325 Tablet) 1 tab PO Q6H PRN PRN Reason: PAIN SCALE 4-6 (Moderate Stop: 07/23/24 11:24 Sennosides (Senna Tablet) 1 tab PO QDAY JOSE EDUARDO; Protocol Stop: 08/18/24 08:59 Discontinued Medications Albuterol (Albuterol Rt 2.5 Mg/3 Ml Nebu) 2.5 mg INH X1 ONE Stop: 07/18/24 06:30 Last Admin: 07/18/24 06:50 Dose: 2.5 mg Clonidine (Clonidine Hcl 0.1 Mg Tablet) 0.4 mg PO X1 ONE Stop: 07/18/24 05:37 Last Admin: 07/18/24 06:04 Dose: 0.4 mg Hydralazine HCl (Hydralazine Inj 20 Mg/Ml Vial) 5 mg IVP X1 ONE Stop: 07/18/24 06:21 Last Admin: 07/18/24 08:57 Dose: 5 mg Ceftriaxone Sodium 2 gm/ (Sodium Chloride) 50 mls @ 100 mls/hr IV QDAY JOSE EDUARDO Stop: 07/25/24 06:26 Last Admin: 07/18/24 09:05 Dose: Not Given Doxycycline Hyclate 100 mg/ (Sodium Chloride) 100 mls @ 100 mls/hr IV X1 ONE Stop: 07/18/24 07:26 Last Infusion: 07/18/24 08:59 Dose: Infused Insulin Human Regular (Insulin Hum Regular 1 Unit/0.01 Ml (Per Unit)) 8 unit SC X1 ONE Stop: 07/18/24 11:17 Lorazepam (Lorazepam 2 Mg/Ml Vial) 1 mg IV X1 ONE Stop: 07/18/24 06:16 Last Admin: 07/18/24 06:08 Dose: 1 mg Assessment & Plan Plan 68 year old male with significant past medical history of hypertension, ESRD on HD [Thursday/Thursday] with Dr. Dinh, hypothyroidism, insulin-dependent type-2 diabetes was brought in from [facility] to the ED for altered mental status will be admitted for acute encephalopathy secondary to metabolics vs. hypertensive emergency and nephrology will be consulted for emergent need for hemodialysis. #Acute encephalopathy #Hypertensive emergency #Metabolic encephalopathy As per HPI, patient presenting from SNF with new acute encephalopathy Patient apparently had left arm pain but otherwise no mention of fever/chills, recent sick contacts or other concerning symptoms noted as of yet Patient in the ED had BP 220+/90-100 with remaining vitals within normal limits Utox negative Ammonia mildly elevated at [address] was negative for any acute findings. EKG was normal sinus rhythm with possible LVH and LA enlargement. Given x1 Clonidine 0.4 and x1 Hydralazine 5mg IV for hypertension which dropped his systolic to 157/84 Plan: Lactulose 20mg x1 will monitor mental status Hold antihypertensives; keep blood pressure at this level Gradual normalization within the next 24-48 hours HD as noted below #ESRD on HD (M/F) #Electrolyte abnormalities Follows Dr. Dinh outpatient; missed dialysis session on 07/18 due to altered mental status Has R TNC which will be used for dialysis emergently as this is most likely contributing to his hypertensive emergency Trop mildly elevated at 0.046 and BNP of 623 Plan: HD scheduled Monitor with morning lytes Renal diet #Insulin-dependent type-2 diabetes Last A1c in February 2024 was 7.4 Pending med rec AG of 17 but B-hydroxybutyrate is 0.1 (normal) Plan: SSI #Parenchymal Lung Disease #Possible underlying PNA? Noted previously in imaging In the ED given 2g of IV ceftriaxone along with Doxy 100 IV Patient has no noted fever, WBC wnl, lactic acid improved, ProCal of 0.23 Currently on 2L NC saturating 100 and lungs sound clear on exam CXR showed Chronic cavitary pain and parenchymal disease right upper lobe again noted and mild pneumonia left base CT Abd/P showed the parenchymal disease, mild vascular congestion and distended bladder, Plan: Will hold off on antibiotics at this time Follow-up with morning labs Blood cultures pending #Hypothyroidism Patient on home levothyroxine 50mcg Presenting with TSH of 7.61 and free T4 of 1.10 Plan: Restart home medication Hospital Management: Lines: PIV, Garcia, R TNC Diet: Renal, pending swallow screen Bowel: Senna GI prophylaxis: not needed DVT prophylaxis: SCD Dispo: HD with Dr. Dinh for hypertensive emergency; monitoring acute encephalopathy Code: Full Patient seen and examined with attending Dr. Chandu Martines, PGY-1 Attending Provider Attestation/Addendum Katya Brower DO, attest that I was physically present for the johnson portions of the service and evaluated the patient with the resident and I reviewed and discussed the case with the resident and agree with the resident's findings and plans of care as documented above Patient is a 68-year-old male with past medical history of end-stage renal disease, end-stage renal disease on hemodialysis, hypothyroidism and type 2 insulin-dependent diabetes mellitus who was brought to the ED for altered mental status. No family at bedside at time of my evaluation per nursing, patient was very agitated and had received Ativan in the ED. She was noted to have significantly. Blood pressure 217/96 on presentation. Blood glucose was also seen. No evidence of DKA however as beta hydroxy was negative and VBG shows pH is compensated. Patient had some left arm pain, but did not complain of any at time of evaluation. Troponin is detectable and has plateaued. Patient is ANO x 1 to self. He is somnolent due to Ativan, but arousable. He continues to be confused. Dialysis catheter in right upper chest appears to be clean dry and intact. Patient received clonidine due to elevated BP in the ED. Will monitor blood pressure closely. Suspect acute encephalopathy secondary to hypertensive emergency. Will admit to telemetry for further workup and medical management of acute encephalopathy and hypertensive emergency. Will consult nephrology to continue with his scheduled dialysis sessions. Patient has otherwise been afebrile and does not complain of pain.
[2024-07-18] MEDS: LACTULOSE SYRUP 20 GM/30 ML UDC PO (11:40)
[2024-07-18 11:44] LABS: Troponin I 0.046 ng/mL (0.0-0.045)
[2024-07-18 12:43] LABS: Glucose Estimated Average 177 mg/dL (80-131); Hemoglobin A1C 7.8 % Hgb (4.8-6.0)
[2024-07-18] MEDS: HEPARIN SOD INJ 1000 UNIT/ML VIAL 10 ML 3500 UNIT INDWELLCAT (18:40)
[2024-07-18] MEDS: INSULIN LISPRO (AdmeLOG) 1 UNIT/0.01 ML UNIT SC (20:08)
[2024-07-19] VITALS (9 sets, daily range): BP systolic 105–183; BP diastolic 77–97; PULSE 62–81; RESP 12–24; TEMP 36.1–37.6; O2SAT 98–100
[2024-07-19] MEDS: GABAPENTIN 100 MG CAPSULE PO (03:37)
[2024-07-19] MEDS: LEVOTHYROXINE SODIUM 25 MCG TABLET 50 MCG PO (05:24)
[2024-07-19 05:51] LABS: Basophils # (Auto) 0.1 Thou/mm3 (0.0-0.2); Basophils % (Auto) 1 % (0-2.5); Eosinophils % (Auto) 0 % (0-10); Hematocrit 36.8 % (41.0-53.0); Hemoglobin 12.2 g/dL (13.5-16.0); Immature Granulocytes % (Auto) 1 % (0-0); Immature Granulocytes Auto 0.04 Thou/mm3 (0.00-0.00); Lymphocytes # (Auto) 0.4 Thou/mm3 (1.0-4.8); Lymphocytes % (Auto) 6 % (10-50); Mean Corpuscular HGB Conc 33.2 g/dl (31.0-37.0); Mean Corpuscular Hemoglobin 29.5 pg (25.0-35.0); Mean Corpuscular Volume 89 fL (80-100); Monocytes # (Auto) 0.8 Thou/mm3 (0.0-0.8); Monocytes % (Auto) 11 % (0-12); Neutrophils # (Auto) 6.3 Thou/mm3 (1.8-7.7); Neutrophils % (Auto) 82 % (37-80); Nucleated Red Blood Cell % 0 /100 WBC (0); Platelet Count 245 Thou/mm3 (140-440); RDW Standard Deviation 53.3 fL (35.1-43.9); Red Blood Count 4.13 Miln/mm3 (4.50-5.90); White Blood Count 7.7 Thou/mm3 (3.8-10.6)
[2024-07-19 06:31] LABS: Anion Gap 11 (7-16); BUN/Creatinine Ratio 7 Ratio (12-20); Blood Urea Nitrogen 23 mg/dL (9-23); Calcium 9.2 mg/dL (8.3-10.6); Calcium (Corrected) 9.2 mg/dL (8.5-10.1); Carbon Dioxide 24.8 mMol/L (20.0-31.0); Chloride 94 mMol/L (98-107); Creatinine (Component) 3.5 mg/dL (0.6-1.3); Estimated Creatinine Clearance 16.8 mL/min (>60); Glucose 175 mg/dL (74-106); Magnesium 2.5 mg/dL (1.6-2.6); Osmolality,Calculated 268 (275-295); Phosphorous 4.2 mg/dL (2.4-5.1); Potassium 4.2 mMol/L (3.4-5.1); Sodium 130 mMol/L (136-145); eGFR 18 See Note
[2024-07-19] MEDS: INSULIN LISPRO (AdmeLOG) 1 UNIT/0.01 ML UNIT SC ×4 (07:49→21:06)
[2024-07-19] MEDS: cefTRIAXone 2 GM in SODIUM CHLORIDE 0.9% (Popper) 50 ML IV (09:12)
[2024-07-19] MEDS: SENNA TABLET 1 TAB PO (09:12)
--- NOTE | 2024-07-19 09:26 | ESPR_ITS ---
Documentation for date of: 07/19/24 Subjective Subjective Interval history: 07/19/2024: No acute overnight events to report. Patient completed dialysis session on 07/18 with all blood returning. Patient seen and examined in hospital bed with improved mental status but continues to be somewhat confused. Patient is able to provide his name, purpose but sporadically makes some nonsensical comments. Patient's blood pressure within acceptable range at this time; however, will resume antihypertensives on 07/20 if appropriate. Will monitor over the next 24 hours and expect discharge within that timeframe. Exam Vital Signs Temp Pulse Resp BP Pulse Ox O2 Del Method O2 Flow Rate 97.1 F 73 19 158/77 H 99 Room Air 1 07/19/24 04:00 07/19/24 04:00 07/19/24 04:00 07/19/24 04:00 07/19/24 04:00 07/19/24 00:00 07/18/24 12:28 Narrative Exam Physical Exam: GENERAL: Awake, appears stated age, answering questions appropriately sporadically HEENT: NC/AT. Moist mucosa. PERRLA/EOMI. CARDIO: Heart RRR, no obvious murmurs, no JVD. PULM: No coughing or visible SOB. Lungs CTA B/L. GI: Abdomen soft, NT/ND, +BS. URO/EDI CONSULTANT: +Garcia catheter SKIN/MSK/EXT: R TNC present. No wounds/discoloration/rashes/edema/amputations. +Pedal pulses present B/L. NEURO: Oriented x2 (person/purpose) - not to place (said [place]). Moves extremities x4, no focal neurological deficits noted. Objective Labs 07/20/24 05:25 07/20/24 05:25 Labs: Laboratory Results - last 24 hr 07/18/24 07/18/24 07/19/24 05:51 09:32 04:42 WBC 7.7 RBC 4.13 L Hgb 12.2 L Hct 36.8 L MCV 89 MCH 29.5 MCHC 33.2 RDW Std Deviation 53.3 H Plt Count 245 Neut % (Auto) 82 H Lymph % (Auto) 6 L [place] % (Auto) 11 Eos % (Auto) 0 Baso % (Auto) 1 Neut # (Auto) 6.3 Lymph # (Auto) 0.4 L [place] # (Auto) 0.8 Eos # (Auto) 0.0 Baso # (Auto) 0.1 Immature Gran # (Auto) 0.04 H Absolute Nucleated RBC 0.00 Immature Gran % 1 H Nucleated RBC % 0 Sodium 130 L Potassium 4.2 Chloride 94 L Carbon Dioxide 24.8 Anion Gap 11 BUN 23 Creatinine 3.5 H D Estim Creat Clear Calc 16.8 L eGFR 18 L BUN/Creatinine Ratio 7 L Glucose [address] Glu mg/dL 177 H Hemoglobin A1c 7.8 H Calculated Osmolality 268 L Lactic Acid 1.2 Calcium 9.2 Corrected Calcium 9.2 Phosphorus 4.2 Magnesium 2.5 Troponin I 0.046 H* Albumin 4.0 Beta-Hydroxybutyrate/Acetoacetate 0.1 Procalcitonin 0.23 ABG Interpretation ABG results: 07/18/24 07:48 VBG pH 7.38 VBG pCO2 38 VBG pO2 40 VBG Base Excess -2 Quality Measures Quality Measures sepsis Current suspected stage: ruled out Possible source: unknown Blood cultures ordered: yes Antibiotic ordered: No Advance care planning discussed with:: patient and spouse Assessment & Plan Assessment Current Active Medications: Generic Name Dose Route Start Last Admin Trade Name Freq PRN Reason Stop Dose Admin Acetaminophen 650 mg 07/18/24 11:25 Acetaminophen 325 Mg Tablet PO 08/17/24 11:24 Q6H PRN Pain 1-3 and/or Fever >100.1 Dextrose 25 ml 07/18/24 11:53 Dextrose 50%-Water Inj 50 Ml Syringe IV 08/17/24 11:52 Q15MIN PRN BG 50-70 responsive npo pt Dextrose 50 ml 07/18/24 11:53 Dextrose 50%-Water Inj 50 Ml Syringe IV 08/17/24 11:52 Q15MIN PRN BG <50 OR BG <70 & pt unresponsive Glucagon 1 mg 07/18/24 11:53 Glucagon Inj 1 Mg Vial IM Q15MIN PRN BG <70, and no IV access Heparin Sodium (Porcine) 3,500 unit 07/18/24 15:00 07/18/24 18:40 Heparin Sod Inj 1000 Unit/Ml Vial 10 Ml INDWELLCAT 08/01/24 14:59 3,500 unit PRN PRN Administration DIALYSIS Ceftriaxone Sodium 2 gm/ 50 mls @ 100 mls/hr 07/19/24 09:00 07/19/24 09:12 Sodium Chloride IV 07/26/24 08:59 100 mls/hr QDAY JOSE EDUARDO Administration Albumin Human 25 gm in 100 mls @ 100 mls/min 07/18/24 09:30 Albuminar-25 Ivpb IV 07/21/24 09:29 PRN PRN DIALYSIS Insulin Human Lispro 0 unit 07/19/24 08:00 07/19/24 07:49 Insulin Lispro (Admelog) 1 Unit/0.01 Ml Unit SC 08/18/24 07:59 1 unit ACHS JOSE EDUARDO Administration Protocol Levothyroxine Sodium 50 mcg 07/19/24 06:00 07/19/24 05:24 Levothyroxine Sodium 25 Mcg Tablet PO 08/18/24 05:59 50 mcg ACBR JOSE EDUARDO Administration Ondansetron HCl 4 mg 07/18/24 11:25 Ondansetron Inj 2 Mg/Ml Inj 2 Ml IVP 08/17/24 11:24 Q6H PRN NAUSEA OR VOMITING Protocol Oxycodone/Acetaminophen 1 tab 07/18/24 11:25 Oxycodone/Apap 5/325 Tablet PO 07/23/24 11:24 Q6H PRN PAIN SCALE 4-6 (Moderate Sennosides 1 tab 07/19/24 09:00 07/19/24 09:12 Senna Tablet PO 08/18/24 08:59 1 tab QDAY JOSE EDUARDO Administration Protocol Plan Patient came in and found to have 2 or more SIRS criteria and was evaluated for sepsis. However, based upon further work-up, sepsis was ruled out. 68 year old male with significant past medical history of hypertension, ESRD on HD [Thursday/Thursday] with Dr. Dinh, hypothyroidism, insulin-dependent type-2 diabetes was brought in from SNF to the ED for altered mental status will be admitted for acute encephalopathy secondary to metabolics vs. hypertensive emergency and nephrology will be consulted for emergent need for hemodialysis. #Acute encephalopathy, improving #Hypertensive emergency #Metabolic encephalopathy As per HPI, patient presenting from SNF with new acute encephalopathy Patient apparently had left arm pain but otherwise no mention of fever/chills, recent sick contacts or other concerning symptoms noted as of yet Patient in the ED had BP 220+/90-100 with remaining vitals within normal limits Utox negative Ammonia mildly elevated at [address] was negative for any acute findings. EKG was normal sinus rhythm with possible LVH and LA enlargement. Given x1 Clonidine 0.4 and x1 Hydralazine 5mg IV for hypertension which dropped his systolic to 157/84 HD as noted below on 07/18 Plan: Hold antihypertensives; keep blood pressure at this level; will resume 07/20 pending med rec Gradual normalization within the next 24 hours #Dementia Per family members, patient has dementia Was recently discharged from [facility] and sent to a SNF ([facility]) as he was confusion at home, wandering around at night; history of falls Patient not on any medication for dementia at this time, no neurology appointments Plan: Neurology consulted, appreciate recommendations Will consider Seroquel 25mg HS for dementia/confusion-state #ESRD on HD (M/F) #Electrolyte abnormalities Follows Dr. Dinh outpatient; missed dialysis session on 07/18 due to altered mental status Has R TNC which will be used for dialysis emergently as this is most likely contributing to his hypertensive emergency Trop mildly elevated at 0.046 and BNP of 623 Hemodialysis completed 07/18 with no ultrafiltration, blood returned Plan: Nephrology consulted, appreciate recommendations Monitor with morning lytes Renal diet #Insulin-dependent type-2 diabetes Last A1c in February 2024 was 7.4 Pending med rec AG of 17 but B-hydroxybutyrate is 0.1 (normal) Plan: SSI #Parenchymal Lung Disease #Possible underlying PNA? Noted previously in imaging In the ED given 2g of IV ceftriaxone along with Doxy 100 IV Patient has no noted fever, WBC wnl, lactic acid improved, ProCal of 0.23 Currently on 2L NC saturating 100 and lungs sound clear on exam CXR showed Chronic cavitary pain and parenchymal disease right upper lobe again noted and mild pneumonia left base CT Abd/P showed the parenchymal disease, mild vascular congestion and distended bladder Blood cultures no growth in 24 hours Plan: Will hold off on antibiotics at this time Follow-up with morning labs #Hypothyroidism Patient on home levothyroxine 50mcg Presenting with TSH of 7.61 and free T4 of 1.10 Plan: Continue home medication Hospital Management: Lines: PIV, Garcia, R TNC Diet: Renal, pending swallow screen Bowel: Senna GI prophylaxis: not needed DVT prophylaxis: SCD Dispo: Monitoring acute encephalopathy which is improving, will resume antihypertensives 07/20 Code: Full Patient seen and examined with attending Dr. Chandu Martines, PGY-1 Attending Provider Attestation/Addendum Leonarda, Katya Schofield, DO, attest that I was physically present for the johnson portions of the service and evaluated the patient with the resident and I reviewed and discussed the case with the resident and agree with the resident's findings and plans of care as documented above Patient seen and eval this a.m. Patient was emotional stating that he has been confused, but now is alert and oriented x 2. Patient was sitting in bed and eating breakfast on his own. Patient has no active complaints right now. He he denies any shortness of breath or chest pain. Dialysis catheter appears clean dry and intact in right upper chest. Lungs are clear to auscultation bilaterally. No focal neurological deficits noted on exam. and son were at bedside at noon during which they revealed that the patient has had worsening confusion on and disorientation for the past 3 weeks. Patient has had trouble sleeping at night and will occasionally go outside and take a walk. However, he has been noted to be very unsteady such that he has fallen 5 times in 1 night. Patient was subsequently brought to [facility] during which she was treated for hypertensive urgency. He was subsequently discharged to a custodial facility for over a week. Patient was just brought home on Thursday from custodial facility as the family had noted that he continued to decline due to his worsening mental status and decreased functional status. During dialysis yesterday, patient's was called to pick him up as he was noted to be very agitated and combative which is not his usual state. Family suspicious that patient may have some component of dementia. Patient is currently at baseline at this time per family. He will occasionally make some moans and groans, but able to communicate appropriately. Will have neurology further evaluate patient due to acute encephalopathy that has since resolved as metabolic workup appears to be benign. Will start patient on Seroquel this evening due to his insomnia and disorientation.
--- NOTE | 2024-07-19 10:21 | PC.SS ---
Patient is currently altered. SS contacted patient's son, Mati. Mati provided a brief history of patient. Patient was recently at [facility] for about a week and a half from [facility]. Patient is on dialysis and was sent from dialysis to the hospital for getting agitated and altered. Patient follows at [facility] dialysis center every M/F with Dr. Prieto. was transportating patient. Patient has a hx: diabetes. He was admitted for hypertensive emergency. Patient has 02 at home. He may need additional DME. Son states they did not have a good experience with SNF. They prefer at the time of discharge to send patient home with home health services. PCP: Dr. Peña in [place]. D/c plan: . is the alt medical decision maker. Alt medical decision maker: , Lindsay, [phone] d/c plan:
--- NOTE | 2024-07-19 14:50 | PD.RESCONSUL ---
HPI Data of Consult Requesting Physician: Katya Schofield DO Admitting Provider: Katya Schofield DO Attending Provider: Katya Schofield DO Primary Care Provider: Physician No Primary/Family Consult Narrative Reason for consult: altered mental status History of present illness: The patient is a 68-year-old male with a previous medical history of ESRD on dialysis (Thursday/Thursday) following Dr Dinh, hypothyroidism, type 2 diabetes who was brought in from the SNF due to altered mentation. He was receiving his scheduled dialysis session but was unable to finish it due to altered mental status. In the ED his vitals showed blood pressure 270/96, heart rate 76, he was afebrile, saturating well on room air. Labs showed glucose of 350, WBC count hemoglobin 11.8. VBG showed pH 7.38, [id number], PO240 sodium 127, chloride 95, gap 17, BUN 42, creatinine 4.4, 2.3 down trended to 1.2, ammonia 34 troponin 0.046, TSH 0.61, free T4 1.1. UA was negative for signs of UTI, U tox was negative. CT head was negative for acute findings. Patient was admitted for acute encephalopathy secondary metabolic nature versus hypertensive emergency. Nephrology was consulted for dialysis. Neurology was consulted due to altered mental status. 07/19/24: Patient was seen and examined at the bedside. He is conversational, AO x 3 at the bedside. He is able to walk using a walker which is what he does at home. cc:: cc: Katya Schofield DO Review of Systems Review of Systems Systems Reviewed: All systems reviewed, normal except as documented Past Medical History Past Medical History CARDIAC: Positive Hypercholesterolemia and Hypertension GENITOURINARY: Positive Renal Disease and Dialysis ENDOCRINE: Positive Diabetes Mellitus Type 2 Social History SMOKING STATUS: Unknown if ever smoked SECOND HAND EXPOSURE: No SUBSTANCE USE: unknown Exam Vital Signs Temp Pulse Resp BP Pulse Ox O2 Del Method O2 Flow Rate 98.3 F 64 18 179/89 H 99 Room Air 1 07/19/24 12:00 07/19/24 12:00 07/19/24 12:07/19/24 12:00 07/19/24 12:00 07/19/24 12:00 07/18/24 12:28 Narrative Exam Gen: Well-developed and well-nourished. HEENT: NCAT, PERRLA, EOMI, MMM, anicteric conjunctivae. CVS: normal S1 and S2. RRR. No M/R/G. Resp: CTA B/L. No rhonchi, rales, crackles or wheezing. Abd: soft, non-tender, non-distended. BS+ in all 4 quadrants. MSK: Good ROM in BUE & BLE. No edema or rash. Neuro: CN II-XII grossly intact. Strength 5/5 in BUE & BLE. Asterixis in both hands and lower extremity tremor noted. Alert and oriented x3. Able to ambulate using walker. Psych: appropriate mood and affect. Results Labs 07/20/24 05:25 07/20/24 05:25 Labs: Short CBC 07/19/24 Range/Units 04:42 WBC 7.7 (3.8-10.6) Thou/mm3 Hgb 12.2 L (13.5-16.0) g/dL Hct 36.8 L (41.0-53.0) % Plt Count 245 (140-440) Thou/mm3 BMP 07/19/24 04:42 Sodium 130 L Potassium 4.2 Chloride 94 L Carbon Dioxide 24.8 BUN 23 Creatinine 3.5 H D Glucose 175 H D Calcium 9.2 Liver Function 07/19/24 Range/Units 04:42 Albumin 4.0 (3.4-4.8) gm/dL ABG Interpretation ABG results: 07/18/24 07:48 VBG pH 7.38 VBG pCO2 38 VBG pO2 40 VBG Base Excess -2 Quality Measures Quality Measures sepsis Current suspected stage: sepsis Possible source: unknown Blood cultures ordered: yes Antibiotic ordered: Yes Advance care planning discussed with:: other Medications Home Medications and Allergies Home Medications ?Medication ?Instructions ?Recorded ?Confirmed ?Type aspirin 81 mg tablet,delayed 81 mg PO 1XD 02/29/24 07/19/24 History release atorvastatin 80 mg tablet 80 mg PO QDAY 02/29/24 07/19/24 History furosemide 40 mg tablet 40 mg PO BID 02/29/24 07/19/24 History levothyroxine 50 mcg tablet 50 mcg PO QDAY 02/29/24 07/19/24 History sevelamer carbonate 800 mg tablet 800 mg PO TID 02/29/24 07/19/24 History clonidine HCl 0.1 mg tablet 0.1 mg PO BID 07/19/24 07/19/24 History gabapentin 100 mg capsule 200 mg PO BID 07/19/24 07/19/24 History valsartan 80 mg tablet 80 mg PO QDAY 07/19/24 07/19/24 History Allergies Allergy/AdvReac Type Severity Reaction Status Date / Time No Known Allergies Allergy Verified 07/28/22 16:17 Visit Medications Acetaminophen (Acetaminophen 325 Mg Tablet) 650 mg PO Q6H PRN PRN Reason: Pain 1-3 and/or Fever >100.1 Stop: 08/17/24 11:24 Dextrose (Dextrose 50%-Water Inj 50 Ml Syringe) 25 ml IV Q15MIN PRN PRN Reason: BG 50-70 responsive npo pt Stop: 08/17/24 11:52 Dextrose (Dextrose 50%-Water Inj 50 Ml Syringe) 50 ml IV Q15MIN PRN PRN Reason: BG <50 OR BG <70 & pt unresponsive Stop: 08/17/24 11:52 Glucagon (Glucagon Inj 1 Mg Vial) 1 mg IM Q15MIN PRN PRN Reason: BG <70, and no IV access Heparin Sodium (Porcine) (Heparin Sod Inj 1000 Unit/Ml Vial 10 Ml) 3,500 unit INDWELLCAT PRN PRN PRN Reason: DIALYSIS Stop: 08/01/24 14:59 Last Admin: 07/18/24 18:40 Dose: 3,500 unit Ceftriaxone Sodium 2 gm/ (Sodium Chloride) 50 mls @ 100 mls/hr IV QDAY [facility] Stop: 07/26/24 08:59 Last Admin: 07/19/24 09:12 Dose: 100 mls/hr Albumin Human (Albuminar-25 Ivpb) 25 gm in 100 mls @ 100 mls/min IV PRN PRN PRN Reason: DIALYSIS Stop: 07/21/24 09:29 Insulin Human Lispro (Insulin Lispro (Admelog) 1 Unit/0.01 Ml Unit) 0 unit SC [facility]; Protocol Stop: 08/18/24 07:59 Last Admin: 07/19/24 12:31 Dose: 2 unit Levothyroxine Sodium (Levothyroxine Sodium 25 Mcg Tablet) 50 mcg PO ACBR [facility] Stop: 08/18/24 05:59 Last Admin: 07/19/24 05:24 Dose: 50 mcg Ondansetron HCl (Ondansetron Inj 2 Mg/Ml Inj 2 Ml) 4 mg IVP Q6H PRN; Protocol PRN Reason: NAUSEA OR VOMITING Stop: 08/17/24 11:24 Oxycodone/Acetaminophen (Oxycodone/Apap 5/325 Tablet) 1 tab PO Q6H PRN PRN Reason: PAIN SCALE 4-6 (Moderate Stop: 07/23/24 11:24 Sennosides (Senna Tablet) 1 tab PO QDAY [facility]; Protocol Stop: 08/18/24 08:59 Last Admin: 07/19/24 09:12 Dose: 1 tab Discontinued Medications Albuterol (Albuterol Rt 2.5 Mg/3 Ml Nebu) 2.5 mg INH X1 ONE Stop: 07/18/24 06:30 Last Admin: 07/18/24 06:50 Dose: 2.5 mg Clonidine (Clonidine Hcl 0.1 Mg Tablet) 0.4 mg PO X1 ONE Stop: 07/18/24 05:37 Last Admin: 07/18/24 06:04 Dose: 0.4 mg Gabapentin (Gabapentin 100 Mg Capsule) 100 mg PO X1 ONE Stop: 07/19/24 03:32 Last Admin: 07/19/24 03:37 Dose: 100 mg Hydralazine HCl (Hydralazine Inj 20 Mg/Ml Vial) 5 mg IVP X1 ONE Stop: 07/18/24 06:21 Last Admin: 07/18/24 08:57 Dose: 5 mg Ceftriaxone Sodium 2 gm/ (Sodium Chloride) 50 mls @ 100 mls/hr IV QDAY [facility] Stop: 07/25/24 06:26 Last Admin: 07/18/24 09:05 Dose: Not Given Doxycycline Hyclate 100 mg/ (Sodium Chloride) 100 mls @ 100 mls/hr IV X1 ONE Stop: 07/18/24 07:26 Last Infusion: 07/18/24 08:59 Dose: Infused Insulin Human Lispro (Insulin Lispro (Admelog) 1 Unit/0.01 Ml Unit) 0 unit SC ACHS [facility]; Protocol Stop: 08/17/24 16:59 Last Admin: 07/18/24 20:08 Dose: 3 unit Insulin Human Regular (Insulin Hum Regular 1 Unit/0.01 Ml (Per Unit)) 8 unit SC X1 ONE Stop: 07/18/24 11:17 Last Admin: 07/18/24 11:38 Dose: Not Given Lactulose (Lactulose Syrup 20 Gm/30 Ml Udc) 20 gm PO X1 ONE; Protocol Stop: 07/18/24 11:29 Last Admin: 07/18/24 11:40 Dose: 20 gm Lorazepam (Lorazepam 2 Mg/Ml Vial) 1 mg IV X1 ONE Stop: 07/18/24 06:16 Last Admin: 07/18/24 06:08 Dose: 1 mg Pramipexole Dihydrochloride (Pramipexole 0.25 Mg Tablet) 0.25 mg PO X1 ONE Stop: 07/19/24 03:29 Assessment & Plan Plan The patient is a 68-year-old male with a previous medical history of ESRD on dialysis (Thursday/Thursday) following Dr Dinh, hypothyroidism, type 2 diabetes who was brought in from the SNF due to altered mentation. #Acute encephalopathy #History of dementia? Most likely uremic with hypertensive emergency contributing. According to the family, patient has a history of dementia. Head CT was negative for acute intracranial pathology. Plan: - continue with dialysis as scheduled, patient will benefit from dialysis three times a week - try to avoid anticholinergics, benzidiazepines if possible - blood pressure control - follow-up with neurologist in 2 weeks - it's ok to use Seroquel as needed for agitation #ESRD on HD (M/F) #Electrolyte abnormalities #Insulin-dependent type-2 diabetes #Parenchymal Lung Disease #Possible underlying PNA? #Hypothyroidism - management per primary team Plan of care discussed with attending Dr. Mervat Fuller MD, PGY 1. Attending Provider Attestation/Addendum I personally have seen and examined the patient at the bedside and I agreed with the resident's findings, assessment and plan of care. Patient's mental status is back to baseline. Will follow-up with MRI brain and EEG to evaluate for recent cognitive decline. His presentation is most likely consistent with hypertensive encephalopathy/worsening renal insufficiency with inadequate dialysis.
--- NOTE | 2024-07-19 16:58 | PC.NURSE ---
Called Dr. Mccoy, pt BP 183/90, P64. MD will call back with new orders.
[2024-07-19] MEDS: hydrALAZINE INJ 20 MG/ML VIAL 10 MG IVP (17:18)
[2024-07-19] MEDS: NIFEdipine XL 30 MG TABCR 60 MG PO (21:06)
[2024-07-20] VITALS (22 sets, daily range): BP systolic 99–170; BP diastolic 59–96; PULSE 58–99; RESP 13–19; TEMP 35.8–37; O2SAT 95–100; BMI 20.8
[2024-07-20] MEDS: ONDANSETRON INJ 2 MG/ML INJ 2 ML 4 MG IVP (01:29)
[2024-07-20] MEDS: LEVOTHYROXINE SODIUM 25 MCG TABLET 50 MCG PO (05:07)
[2024-07-20 06:14] LABS: Basophils % (Auto) 1 % (0-2.5); Eosinophils % (Auto) 0 % (0-10); Hematocrit 41.5 % (41.0-53.0); Hemoglobin 13.8 g/dL (13.5-16.0); Immature Granulocytes % (Auto) 0 % (0-0); Immature Granulocytes Auto 0.03 Thou/mm3 (0.00-0.00); Lymphocytes # (Auto) 0.4 Thou/mm3 (1.0-4.8); Lymphocytes % (Auto) 6 % (10-50); Mean Corpuscular HGB Conc 33.3 g/dl (31.0-37.0); Mean Corpuscular Hemoglobin 29.5 pg (25.0-35.0); Mean Corpuscular Volume 89 fL (80-100); Monocytes # (Auto) 0.7 Thou/mm3 (0.0-0.8); Monocytes % (Auto) 9 % (0-12); Neutrophils % (Auto) 84 % (37-80); Nucleated Red Blood Cell % 0 /100 WBC (0); Platelet Count 249 Thou/mm3 (140-440); RDW Standard Deviation 53.5 fL (35.1-43.9); Red Blood Count 4.68 Miln/mm3 (4.50-5.90); White Blood Count 7.2 Thou/mm3 (3.8-10.6)
[2024-07-20 06:43] LABS: Anion Gap 11 (7-16); BUN/Creatinine Ratio 8 Ratio (12-20); Blood Urea Nitrogen 35 mg/dL (9-23); Chloride 94 mMol/L (98-107); Creatinine (Component) 4.2 mg/dL (0.6-1.3); Estimated Creatinine Clearance 13.3 mL/min (>60); Osmolality,Calculated 282 (275-295); Phosphorous 5.3 mg/dL (2.4-5.1); Potassium 5.1 mMol/L (3.4-5.1); Sodium 126 mMol/L (136-145); eGFR 15 See Note
[2024-07-20 06:55] LABS: Glucose 474 mg/dL (74-106)
[2024-07-20] MEDS: INSULIN LISPRO (AdmeLOG) 1 UNIT/0.01 ML UNIT SC ×4 (07:28→21:39)
[2024-07-20] MEDS: INSULIN HUM REGULAR 1 UNIT/0.01 ML (PER UNIT) 10 UNIT IV ×2 (07:37→09:23)
[2024-07-20] MEDS: carVEDILOL 12.5 MG TABLET PO (07:38)
[2024-07-20] MEDS: cefTRIAXone 2 GM in SODIUM CHLORIDE 0.9% (Popper) 50 ML IV (08:11)
[2024-07-20] MEDS: POLYETHYLENE GLYCOL 17 GM PACKET PO (08:12)
[2024-07-20] MEDS: SENNA TABLET 1 TAB PO (08:12)
[2024-07-20] MEDS: SEVELAMER CARBONATE 800 MG TABLET PO (08:46)
[2024-07-20] MEDS: CALCIUM CARBONATE 600 MG TABLET PO (08:46)
[2024-07-20] MEDS: ACETAMINOPHEN 325 MG TABLET 650 MG PO (09:26)
[2024-07-20] MEDS: INSULIN GLARGINE (Lantus) 5 UNIT/0.05 ML (PER 5 UNITS) 15 UNIT SC (10:06)
[2024-07-20] MEDS: oxyCODONE/APAP 5/325 TABLET 1 TAB PO (11:34)
--- NOTE | 2024-07-20 11:58 | PD.RESPRO ---
Documentation for date of: 07/20/24 Subjective Subjective Interval history: Patient was seen and examined by the bedside. Patient is resting in bed, reports feels the same as yesterday. He is receiving dialysis, reports headache, restless in the bed. Blood pressure around ~120/70. Will hold off the MRI and EEG for now. Possible discharge in 24 hours. Exam Vital Signs Temp Pulse Resp BP Pulse Ox O2 Del Method O2 Flow Rate 97.5 F 81 14 121/78 98 Room Air 1 07/20/24 08:00 07/20/24 08:00 07/20/24 08:00 07/20/24 08:00 07/20/24 08:00 07/20/24 08:00 07/18/24 12:28 Narrative Exam Gen: Well-developed and well-nourished. HEENT: NCAT, PERRLA, EOMI, MMM, anicteric conjunctivae. CVS: normal S1 and S2. RRR. No M/R/G. Resp: CTA B/L. No rhonchi, rales, crackles or wheezing. Abd: soft, non-tender, non-distended. BS+ in all 4 quadrants. MSK: Good ROM in BUE & BLE. No edema or rash. Neuro: CN II-XII grossly intact. Strength 5/5 in BUE & BLE. Asterixis in both hands and lower extremity tremor noted. Alert and oriented x3. Able to ambulate using walker. Psych: appropriate mood and affect. Objective Labs 07/20/24 05:25 07/20/24 05:25 Labs: Laboratory Results - last 24 hr 07/20/24 05:25 WBC 7.2 RBC 4.68 Hgb 13.8 Hct 41.5 MCV 89 MCH 29.5 MCHC 33.3 RDW Std Deviation 53.5 H Plt Count 249 Neut % (Auto) 84 H Lymph % (Auto) 6 L [place] % (Auto) 9 Eos % (Auto) 0 Baso % (Auto) 1 Neut # (Auto) 6.0 Lymph # (Auto) 0.4 L [place] # (Auto) 0.7 Eos # (Auto) 0.0 Baso # (Auto) 0.0 Immature Gran # (Auto) 0.03 H Absolute Nucleated RBC 0.00 Immature Gran % 0 Nucleated RBC % 0 Sodium 126 L Potassium 5.1 D Chloride 94 L Carbon Dioxide 21.0 Anion Gap 11 BUN 35 H Creatinine 4.2 H* D Estim Creat Clear Calc 13.3 L eGFR 15 L BUN/Creatinine Ratio 8 L Glucose 474 H* D Calculated Osmolality 282 Calcium 8.0 L Corrected Calcium 8.0 L Phosphorus 5.3 H Albumin 4.0 ABG Interpretation ABG results: 07/18/24 07:48 VBG pH 7.38 VBG pCO2 38 VBG pO2 40 VBG Base Excess -2 Quality Measures Quality Measures sepsis Current suspected stage: ruled out Possible source: unknown Blood cultures ordered: yes Antibiotic ordered: No Advance care planning discussed with:: other Assessment & Plan Assessment Current Active Medications: Generic Name Dose Route Start Last Admin Trade Name Freq PRN Reason Stop Dose Admin Acetaminophen 650 mg 07/18/24 11:25 07/20/24 09:26 Acetaminophen 325 Mg Tablet PO 08/17/24 11:24 650 mg Q6H PRN Administration Pain 1-3 and/or Fever >100.1 Carvedilol 12.5 mg 07/20/24 08:00 07/20/24 07:38 Carvedilol 12.5 Mg Tablet PO 08/19/24 07:59 12.5 mg BIDWM JOSE EDUARDO Administration Dextrose 50 ml 07/18/24 11:53 Dextrose 50%-Water Inj 50 Ml Syringe IV 08/17/24 11:52 Q15MIN PRN BG <50 OR BG <70 & pt unresponsive Glucagon 1 mg 07/18/24 11:53 Glucagon Inj 1 Mg Vial IM Q15MIN PRN BG <70, and no IV access Heparin Sodium (Porcine) 3,500 unit 07/18/24 15:00 07/18/24 18:40 Heparin Sod Inj 1000 Unit/Ml Vial 10 Ml INDWELLCAT 08/01/24 14:59 3,500 unit PRN PRN Administration DIALYSIS Albumin Human 25 gm in 100 mls @ 100 mls/min 07/18/24 09:30 Albuminar-25 Ivpb IV 07/21/24 09:29 PRN PRN DIALYSIS Insulin Glargine 15 unit 07/20/24 10:00 07/20/24 10:06 Insulin Glargine (Lantus) 5 Unit/0.05 Ml (Per 5 Units) SC 08/19/24 09:59 15 unit QDAY JOSE EDUARDO Administration Insulin Human Lispro 0 unit 07/19/24 08:00 07/20/24 11:31 Insulin Lispro (Admelog) 1 Unit/0.01 Ml Unit SC 08/18/24 07:59 3 unit ACHS JOSE EDUARDO Administration Protocol Levothyroxine Sodium 50 mcg 07/19/24 06:00 07/20/24 05:07 Levothyroxine Sodium 25 Mcg Tablet PO 08/18/24 05:59 50 mcg ACBR JOSE EDUARDO Administration Nifedipine 60 mg 07/19/24 21:00 07/19/24 21:06 Nifedipine Xl 30 Mg Tabcr PO 08/18/24 20:59 60 mg QPM JOSE EDUARDO Administration Ondansetron HCl 4 mg 07/18/24 11:25 07/20/24 01:29 Ondansetron Inj 2 Mg/Ml Inj 2 Ml IVP 08/17/24 11:24 4 mg Q6H PRN Administration NAUSEA OR VOMITING Protocol Oxycodone/Acetaminophen 1 tab 07/18/24 11:25 07/20/24 11:34 Oxycodone/Apap 5/325 Tablet PO 07/23/24 11:24 1 tab Q6H PRN Administration PAIN SCALE 4-6 (Moderate Quetiapine Fumarate 25 mg 07/19/24 15:57 Quetiapine Fumarate 25 Mg Tablet PO 08/18/24 20:59 HS PRN AGITATION Sennosides 1 tab 07/19/24 09:00 07/20/24 08:12 Senna Tablet PO 08/18/24 08:59 1 tab QDAY JOSE EDUARDO Administration Protocol Sevelamer Carbonate 800 mg 07/20/24 09:00 07/20/24 08:46 Sevelamer Carbonate 800 Mg Tablet PO 08/19/24 08:59 800 mg DAILY JOSE EDUARDO Administration Plan The patient is a 68-year-old male with a previous medical history of ESRD on dialysis (Thursday/Thursday) following Dr Dinh, hypothyroidism, type 2 diabetes who was brought in from the SNF due to altered mentation. #Acute encephalopathy #History of dementia? Most likely uremic with hypertensive emergency contributing. According to the family, patient has a history of dementia. Head CT was negative for acute intracranial pathology. Discharge recommendations: - continue with dialysis as scheduled, patient will benefit from dialysis three times a week - try to avoid anticholinergics, benzidiazepines if possible - blood pressure control - follow-up with neurologist in 2 weeks for further work up - it's ok to use Seroquel as needed for agitation - Hydralazine 10 mg q8h for agitation as needed - will hold off MRI and EEG for now #ESRD on HD (M/F) #Electrolyte abnormalities #Insulin-dependent type-2 diabetes #Parenchymal Lung Disease #Possible underlying PNA? #Hypothyroidism - management per primary team Plan of care discussed with attending Dr. Mervat Fuller MD, PGY 1. Attending Provider Attestation/Addendum I personally have seen and examined the patient at the bedside and I agree with resident's findings, assessment and plan of care. Will continue to current mgt. Patient seems intermittently confused and rest less. Will try Hydroxyzine as neeed for anxiety and agaition.
--- NOTE | 2024-07-20 13:03 | ESPR_ITS ---
<Statement entered by Ulises Mcintosh MD - 07/21/24 10:58> Patient examined and case discussed with the team including attending physician. Note reviewed, I agree with the care plan as documented. Please refer to the note above for further details. - Ulises Mcintosh MD, PGY 2 Disclaimer: The document may contain phonetic/typographic errors due to voice recognition software. These errors are purely due to imperfections in the software program. Documentation for date of: 07/20/24 Subjective Subjective Interval history: 07/12/2024: No acute overnight events to report. Patient seen and examined in hospital bed reporting generalized pain/discomfort throughout his entire body and states that he has a little bit of shortness of breath. Patient denies any concerning cardiac symptoms such as chest pain, palpitations or dizziness. Patient will require another session of dialysis with Dr. Dinh and going forward will be getting dialysis Thursday, Thursday and Thursday. Neurology was also consulted regarding the patient's dementia and have agreed with as needed Seroquel for agitation at night. Patient will will complete MRI brain along with EEG with neurology, pending recommendations after studies. Will continue to monitor and expect discharge within the next 24 hours. Exam Vital Signs Temp Pulse Resp BP Pulse Ox O2 Del Method O2 Flow Rate 97.1 F 63 19 101/59 L 99 Room Air 1 07/20/24 12:00 07/20/24 12:00 07/20/24 12:07/20/24 12:07/20/24 12:07/20/24 12:00 07/18/24 12:28 Narrative Exam Gen: Awake, answering questions appropriately in [place]er, appears stated age HEENT: NCAT, PERRLA, EOMI, MMM, anicteric conjunctivae. CVS: normal S1 and S2. RRR. No M/R/G. Resp: CTA B/L. No rhonchi, rales, crackles or wheezing. Abd: soft, non-tender, non-distended. BS+ in all 4 quadrants. MSK: Right tunneled catheter. Good ROM in BUE & BLE. No edema or rash. Neuro: CN II-XII grossly intact. Strength 5/5 in BUE & BLE. Asterixis in both hands and lower extremity tremor noted. Alert and oriented x3. Able to ambulate using walker. Objective Labs 07/21/24 05:21 07/21/24 05:21 Labs: Laboratory Results - last 24 hr 07/20/24 05:25 WBC 7.2 RBC 4.68 Hgb 13.8 Hct 41.5 MCV 89 MCH 29.5 MCHC 33.3 RDW Std Deviation 53.5 H Plt Count 249 Neut % (Auto) 84 H Lymph % (Auto) 6 L [place] % (Auto) 9 Eos % (Auto) 0 Baso % (Auto) 1 Neut # (Auto) 6.0 Lymph # (Auto) 0.4 L [place] # (Auto) 0.7 Eos # (Auto) 0.0 Baso # (Auto) 0.0 Immature Gran # (Auto) 0.03 H Absolute Nucleated RBC 0.00 Immature Gran % 0 Nucleated RBC % 0 Sodium 126 L Potassium 5.1 D Chloride 94 L Carbon Dioxide 21.0 Anion Gap 11 BUN 35 H Creatinine 4.2 H* D Estim Creat Clear Calc 13.3 L eGFR 15 L BUN/Creatinine Ratio 8 L Glucose 474 H* D Calculated Osmolality 282 Calcium 8.0 L Corrected Calcium 8.0 L Phosphorus 5.3 H Albumin 4.0 ABG Interpretation ABG results: 07/18/24 07:48 VBG pH 7.38 VBG pCO2 38 VBG pO2 40 VBG Base Excess -2 Quality Measures Quality Measures sepsis Current suspected stage: ruled out Possible source: unknown Blood cultures ordered: yes Antibiotic ordered: Yes Advance care planning discussed with:: patient Assessment & Plan Assessment Current Active Medications: Generic Name Dose Route Start Last Admin Trade Name Freq PRN Reason Stop Dose Admin Acetaminophen 650 mg 07/18/24 11:25 07/20/24 09:26 Acetaminophen 325 Mg Tablet PO 08/17/24 11:24 650 mg Q6H PRN Administration Pain 1-3 and/or Fever >100.1 Carvedilol 12.5 mg 07/20/24 08:00 07/20/24 07:38 Carvedilol 12.5 Mg Tablet PO 08/19/24 07:59 12.5 mg BIDWM JOSE EDUARDO Administration Dextrose 50 ml 07/18/24 11:53 Dextrose 50%-Water Inj 50 Ml Syringe IV 08/17/24 11:52 Q15MIN PRN BG <50 OR BG <70 & pt unresponsive Glucagon 1 mg 07/18/24 11:53 Glucagon Inj 1 Mg Vial IM Q15MIN PRN BG <70, and no IV access Heparin Sodium (Porcine) 3,500 unit 07/18/24 15:00 07/18/24 18:40 Heparin Sod Inj 1000 Unit/Ml Vial 10 Ml INDWELLCAT 08/01/24 14:59 3,500 unit PRN PRN Administration DIALYSIS Albumin Human 25 gm in 100 mls @ 100 mls/min 07/18/24 09:30 Albuminar-25 Ivpb IV 07/21/24 09:29 PRN PRN DIALYSIS Insulin Glargine 15 unit 07/20/24 10:00 07/20/24 10:06 Insulin Glargine (Lantus) 5 Unit/0.05 Ml (Per 5 Units) SC 08/19/24 09:59 15 unit QDAY JOSE EDUARDO Administration Insulin Human Lispro 0 unit 07/19/24 08:00 07/20/24 11:31 Insulin Lispro (Admelog) 1 Unit/0.01 Ml Unit SC 08/18/24 07:59 3 unit ACHS JOSE EDUARDO Administration Protocol Levothyroxine Sodium 50 mcg 07/19/24 06:00 07/20/24 05:07 Levothyroxine Sodium 25 Mcg Tablet PO 08/18/24 05:59 50 mcg ACBR JOSE EDUARDO Administration Nifedipine 60 mg 07/19/24 21:00 07/19/24 21:06 Nifedipine Xl 30 Mg Tabcr PO 08/18/24 20:59 60 mg QPM JOSE EDUARDO Administration Ondansetron HCl 4 mg 07/18/24 11:25 07/20/24 01:29 Ondansetron Inj 2 Mg/Ml Inj 2 Ml IVP 08/17/24 11:24 4 mg Q6H PRN Administration NAUSEA OR VOMITING Protocol Oxycodone/Acetaminophen 1 tab 07/18/24 11:25 07/20/24 11:34 Oxycodone/Apap 5/325 Tablet PO 07/23/24 11:24 1 tab Q6H PRN Administration PAIN SCALE 4-6 (Moderate Quetiapine Fumarate 25 mg 07/19/24 15:57 Quetiapine Fumarate 25 Mg Tablet PO 08/18/24 20:59 HS PRN AGITATION Sennosides 1 tab 07/19/24 09:00 07/20/24 08:12 Senna Tablet PO 08/18/24 08:59 1 tab QDAY JOSE EDUARDO Administration Protocol Sevelamer Carbonate 800 mg 07/20/24 09:00 07/20/24 08:46 Sevelamer Carbonate 800 Mg Tablet PO 08/19/24 08:59 800 mg DAILY JOSE EDUARDO Administration Plan Patient came in and found to have 2 or more SIRS criteria and was evaluated for sepsis. However, based upon further work-up, sepsis was ruled out. 68 year old male with significant past medical history of hypertension, ESRD on HD [Thursday/Thursday] with Dr. Dinh, hypothyroidism, insulin-dependent type-2 diabetes was brought in from SNF to the ED for altered mental status will be admitted for acute encephalopathy secondary to metabolics vs. hypertensive emergency and nephrology will be consulted for emergent need for hemodialysis. #Acute encephalopathy, improving #Hypertensive emergency #Metabolic encephalopathy As per HPI, patient presenting from SNF with new acute encephalopathy Patient apparently had left arm pain but otherwise no mention of fever/chills, recent sick contacts or other concerning symptoms noted as of yet Patient in the ED had BP 220+/90-100 with remaining vitals within normal limits Utox negative Ammonia mildly elevated at [address] was negative for any acute findings. EKG was normal sinus rhythm with possible LVH and LA enlargement. Given x1 Clonidine 0.4 and x1 Hydralazine 5mg IV for hypertension which dropped his systolic to 157/84 HD as noted below on 07/18 HD as noted below on 07/20 Permissive hypertension completed Plan: Restarted patient's nifedipine 60 mg p.o. every afternoon and will hold Coreg 12.5 mg p.o. twice daily as patient's blood pressure is well-controlled at this time #Dementia Per family members, patient has dementia Was recently discharged from [facility] and sent to a SNF ([place]) as he was confusion at home, wandering around at night; history of falls Patient not on any medication for dementia at this time, no neurology appointments Plan: Neurology consulted, appreciate recommendations Neurology recommends obtaining MRI brain along with EEG Seroquel 25mg HS for dementia/confusion-state #ESRD on HD (M/W/F) #Electrolyte abnormalities Follows Dr. Dinh outpatient; missed dialysis session on 07/18 due to altered mental status Has R TNC which will be used for dialysis emergently as this is most likely contributing to his hypertensive emergency Trop mildly elevated at 0.046 and BNP of 623 Hemodialysis completed 5/26 with no ultrafiltration, blood returned Plan: Patient will complete hemodialysis session on 07/20 Nephrology consulted, appreciate recommendations Monitor with morning lytes Renal diet #Insulin-dependent type-2 diabetes #Hyperglycemia Last A1c in February 2024 was 7.4 Pending med rec AG of 17 but B-hydroxybutyrate is 0.1 (normal) Patient's blood glucose levels have been severely elevated in the 400?500s Patient given 2 times insulin regular IV 10 units Plan: Initiated Lantus 15 units daily SSI #Parenchymal Lung Disease #Possible underlying PNA? Noted previously in imaging In the ED given 2g of IV ceftriaxone along with Doxy 100 IV Patient has no noted fever, WBC wnl, lactic acid improved, ProCal of 0.23 Currently on 2L NC saturating 100 and lungs sound clear on exam CXR showed Chronic cavitary pain and parenchymal disease right upper lobe again noted and mild pneumonia left base CT Abd/P showed the parenchymal disease, mild vascular congestion and distended bladder Blood cultures no growth in 24 hours Plan: Discontinue antibiotics Follow-up with morning labs #Hypothyroidism Patient on home levothyroxine 50mcg Presenting with TSH of 7.61 and free T4 of 1.10 Plan: Continue home medication Hospital Management: Lines: PIV, Garcia, R TNC Diet: Renal Bowel: Senna GI prophylaxis: not needed DVT prophylaxis: SCD Dispo: Monitoring acute encephalopathy which is improving, resumed antihypertensives, hemodialysis on 07/20 Code: Full Patient seen and examined with attending Dr. Chandu Martines, PGY-1 Attending Provider Attestation/Addendum Katya Brower DO, attest that I was physically present for the johnson portions of the service and evaluated the patient with the resident and I reviewed and discussed the case with the resident and agree with the resident's findings and plans of care as documented above Patient seen and evaluated this AM. He states that he is weak, but is at baseline mental status. Blood glucose has been poorly controlled. Will increase lantus and uptitrate insulin. Blood pressure has been well controlled. Patient noted to have hyponatremia. Nephro contacted and do dialysis today.
[2024-07-20] MEDS: NIFEdipine XL 30 MG TABCR 60 MG PO (21:39)
[2024-07-21] VITALS: BP 145/70; PULSE 69; PULSE 72; RESP 18; TEMP 37.1; O2SAT 94
[2024-07-21] MEDS: ACETAMINOPHEN 325 MG TABLET 650 MG PO (00:26)
[2024-07-21] MEDS: MELATONIN 3 MG TABLET 6 MG PO (01:11)
--- NOTE | 2024-07-21 01:11 | PC.NURSE ---
Dose of Melatonin verified with Melinda BARNEY, unable to scan medication barcode.
[2024-07-21 04:00] VITALS: BP 121/62; PULSE 62; PULSE 70; RESP 14; TEMP 35.8; O2SAT 98
[2024-07-21 04:05] VITALS: BMI 21.5
[2024-07-21] MEDS: oxyCODONE/APAP 5/325 TABLET 1 TAB PO (04:50)
[2024-07-21 04:59] VITALS: TEMP 36.2
[2024-07-21] MEDS: LEVOTHYROXINE SODIUM 25 MCG TABLET 50 MCG PO (05:01)
[2024-07-21 06:17] LABS: Basophils % (Auto) 1 % (0-2.5); Eosinophils # (Auto) 0.2 Thou/mm3 (0.0-0.5); Eosinophils % (Auto) 3 % (0-10); Hematocrit 43.3 % (41.0-53.0); Hemoglobin 14.3 g/dL (13.5-16.0); Immature Granulocytes % (Auto) 1 % (0-0); Immature Granulocytes Auto 0.06 Thou/mm3 (0.00-0.00); Lymphocytes # (Auto) 0.4 Thou/mm3 (1.0-4.8); Lymphocytes % (Auto) 8 % (10-50); Mean Corpuscular Hemoglobin 29.9 pg (25.0-35.0); Mean Corpuscular Volume 90 fL (80-100); Monocytes # (Auto) 0.6 Thou/mm3 (0.0-0.8); Monocytes % (Auto) 9 % (0-12); Neutrophils # (Auto) 4.6 Thou/mm3 (1.8-7.7); Neutrophils % (Auto) 78 % (37-80); Nucleated Red Blood Cell % 0 /100 WBC (0); Platelet Count 197 Thou/mm3 (140-440); Red Blood Count 4.79 Miln/mm3 (4.50-5.90); White Blood Count 5.9 Thou/mm3 (3.8-10.6)
[2024-07-21 06:41] LABS: Albumin, Serum 4.3 gm/dL (3.4-4.8); Anion Gap 13 (7-16); BUN/Creatinine Ratio 7 Ratio (12-20); Blood Urea Nitrogen 25 mg/dL (9-23); Calcium 9.1 mg/dL (8.3-10.6); Calcium (Corrected) 9.1 mg/dL (8.5-10.1); Carbon Dioxide 24.3 mMol/L (20.0-31.0); Chloride 94 mMol/L (98-107); Creatinine (Component) 3.6 mg/dL (0.6-1.3); Estimated Creatinine Clearance 16.1 mL/min (>60); Glucose 233 mg/dL (74-106); Osmolality,Calculated 274 (275-295); Phosphorous 5.4 mg/dL (2.4-5.1); Potassium 4.4 mMol/L (3.4-5.1); Sodium 131 mMol/L (136-145); eGFR 18 See Note
[2024-07-21 08:00] VITALS: BP 130/68; PULSE 89; RESP 18; TEMP 36.3; O2SAT 97
[2024-07-21] MEDS: SEVELAMER CARBONATE 800 MG TABLET PO ×2 (08:03→11:21)
[2024-07-21] MEDS: INSULIN LISPRO (AdmeLOG) 1 UNIT/0.01 ML UNIT SC ×2 (08:03→11:20)
[2024-07-21] MEDS: SENNA TABLET 1 TAB PO (08:03)
[2024-07-21] MEDS: INSULIN GLARGINE (Lantus) 5 UNIT/0.05 ML (PER 5 UNITS) 15 UNIT SC (08:04)
[2024-07-21] MEDS: INSULIN GLARGINE (Lantus) 5 UNIT/0.05 ML (PER 5 UNITS) SC (09:49)
--- NOTE | 2024-07-21 10:10 | CHAP ---
Patient was sleeping. Prayed for patient quietly in room.
--- NOTE | 2024-07-21 10:25 | ESDS_ITS ---
<Statement entered by Katya Schofield DO - 07/21/24 14:54> I, Katya Schofield DO, attest that I was physically present for the johnson portions of the service and evaluated the patient with the resident and I reviewed and discussed the case with the resident and agree with the resident's findings and plans of care as documented above Planned Discharge Date 07/21/24 DS: Providers Provider Date of admission: 07/18/24 11:25 Primary care physician: Physician No Primary/Family Admitting Provider: Katya Schofield DO Attending Provider on Admission: Katya Schofield DO Consults: 07/18/24 11:27 Consult to Nephrology Routine Comment: Hypertensive emergency Consulting Provider: Baudilio Dinh 07/19/24 12:40 Consult to Neurology / Tele-Neurology Routine Comment: Consulting Provider: Rangel Crowell 07/20/24 08:20 Referral Registered Dietitian Routine Comment: 07/21/24 09:30 Referral Physical Therapy Urgent Comment: Physician Instructions: Instructions: in prep for DC Attending Provider on DC: Katya Schofield DO Discharging Provider: Ulises Mcintosh MD DS: Diagnosis Discharge Diagnosis (1) Hypertensive emergency: Status: Acute (2) Acute encephalopathy: Status: Acute Problem List Completed Was Problem List Reviewed/Reconciled?: Yes Hospital Course Hospital Course Hospital course: Hospital Course: Mr Cha is a 68 year old male with significant past medical history of hypertension, ESRD on HD [Thursday/Thursday] with Dr. Dinh, hypothyroidism, insulin-dependent type-2 diabetes was brought in from SNF to the ED for altered mental status will be admitted for acute encephalopathy secondary to metabolics vs. hypertensive emergency and nephrology consulted for emergent need for hemodialysis. Head CT was negative for any acute findings. EKG was normal sinus rhythm with possible LVH and LA enlargement. HD on 07/18 and 07/20. CXR showed Chronic cavitary pain and parenchymal disease right upper lobe again noted and mild pneumonia left base. CT Abd/P showed the parenchymal disease, mild vascular congestion and distended bladder Patient came in and found to have 2 or more SIRS criteria and was evaluated for sepsis. He was treated with Rocephin initially, however, based upon further work-up, sepsis was ruled out. Blood cultures no growth in 24 hours. BP medications were reduced as adequate control was achieved on low doses in addition to HD. Insulin regimen was also adjusted for better glucose control. DC instructions provided to patient and , present at bedside. Showed full comprehension of dsicharge plan. Problems on this admission: - Acute encephalopathy, improving - Hypertensive emergency - Metabolic encephalopathy - Dementia - ESRD on HD (M/W/F) - Electrolyte abnormalities - Insulin-dependent type-2 diabetes - Hyperglycemia - Parenchymal Lung Disease - Hypothyroidism Procedures: Hemodialysis x2 inpatient Discharge instructions: - Follow up with PCP within 1 week from DC. If you dont have a PCP, please call [phone] for an appointment with Dr Park - BP medication reduced as follows: Coreg 12.5 --> 3.125 twice a day Valsartan 80mg -> 40mg daily Nifedipine 60mg -> 30mg daily Clonidine 0.1mg , use only as needed if BP >150/90 - Lasix reduced to every other day. Take one tablet on the days you dont get di alysis. - Your insulin is changed to once daily long acting Tresiba 15 units at night for optimization, for high A1c 7.8% - Please follow up with Nehrology Dr Dinh after discharge. - Continue outpatient HD as scheduled - Return to ED if symptoms worsen. We are grateful to be able to participate in Mr Cha's care. We wish him the best. Plan of care discussed with attending Ulises Dasilva M.D. PGY2 Disclaimer: Minor errors in store receiving clerk may be present as this note was dictated using voice recognition software. Status at Discharge Cognitive/behavioral status at discharge: stable and returned to baseline Time Spent with Patient Time attestation: Total time spent providing and/or coordinating discharge services: more htan 50% Time spent: Greater than 30 minutes Exam Vital Signs Temp Pulse Resp BP Pulse Ox O2 Del Method O2 Flow Rate 97.3 F 89 18 130/68 97 Room Air 1 07/21/24 08:00 07/21/24 08:00 07/21/24 08:00 07/21/24 08:00 07/21/24 08:00 07/21/24 08:00 07/18/24 12:28 Narrative Exam Gen: Awake, answering questions appropriately in Slovak, appears stated age HEENT: NCAT, PERRLA, EOMI, MMM, anicteric conjunctivae. CVS: normal S1 and S2. RRR. No M/R/G. Resp: CTA B/L. No rhonchi, rales, crackles or wheezing. Abd: soft, non-tender, non-distended. BS+ in all 4 quadrants. MSK: Right tunneled catheter. Good ROM in BUE & BLE. No edema or rash. Neuro: CN II-XII grossly intact. Strength 5/5 in BUE & BLE. Asterixis in both hands and lower extremity tremor noted. Alert and oriented x3. Able to ambulate using walker. Discharge Plan Plan Patient Disposition: Home w/HOME HEALTH Patient condition on transfer: Stable Care Plan Goals: - Follow up with PCP within 1 week from [place]. If you dont have a PCP, please call [phone] for an appointment with Dr Park - BP medication reduced as follows: Coreg 12.5 --> 3.125 twice a day Valsartan 80mg -> 40mg daily Nifedipine 60mg -> 30mg daily Clonidine 0.1mg , use only as needed if BP >150/90 - Lasix reduced to every other day. Take one tablet on the days you dont get dialysis. - Your insulin is changed to once daily long acting Tresiba 15 units at night for optimization, for high A1c 7.8% - Please follow up with Nehrology Dr Dinh after discharge. - Continue outpatient HD as scheduled - Return to ED if symptoms worsen. Prescriptions/Referrals Prescriptions/Med Rec: New carvedilol 3.125 mg tablet 3.125 mg PO BID 30 Days Qty: 60 0RF Rx Instructions: must administer with a meal/food valsartan 40 mg tablet 40 mg PO QDAY 30 Days Qty: 30 0RF nifedipine 30 mg tablet extended release 30 mg PO QDAY 30 Days Qty: 30 0RF insulin degludec 200 unit/mL (3 mL) insulin pen 15 unit subcut QPM 30 Days Qty: 2.25 1RF (DME) pen needle, diabetic 29 gauge x 1/2 needle See Rx Instructions .Route Qty: 100 0RF Rx Instructions: As directed (DME) FreeStyle Linda 3 Plus Sensor Device See Rx Instructions .Route Qty: 1 0RF Rx Instructions: As directed (DME) FreeStyle Linda 3 [place] Misc See Rx Instructions .Route Qty: 1 0RF Rx Instructions: As directed insulin lispro [Admelog U-100 Insulin lispro] 100 unit/mL solution 1 sliding scale dose subcut AC 30 Days Qty: 10 0RF Continued atorvastatin 80 mg Tablet 80 mg PO QDAY aspirin 81 mg tablet,delayed release (DR/EC) 81 mg PO 1XD Patient Comments: TAKE 1 TABLET BY MOUTH ONCE DAILY sevelamer carbonate 800 mg Tablet 800 mg PO TID Rx Instructions: must administer with a meal/food levothyroxine 50 mcg Tablet 50 mcg PO QDAY gabapentin 100 mg capsule 200 mg PO BID Changed furosemide 40 mg tablet 40 mg PO Q OTHER DAY Qty: 30 0RF Patient Comments: TAKE 1 TABLET BY MOUTH TWICE DAILY Rx Instructions: Take on the days you dont get hemodialysis clonidine HCl 0.1 mg tablet 0.1 mg PO BID PRN (Reason: SBP >150) Qty: 20 0RF Discontinued hydralazine 25 mg tablet 75 mg PO TID Qty: 30 0RF Patient Comments: TAKE 3 TABLETS BY MOUTH THREE TIMES DAILY Rx Instructions: Hold if SBP drop below 100 and DBP below 60 mmHg nifedipine 60 mg tablet extended release 60 mg PO QPM Qty: 30 0RF Patient Comments: TAKE 1 TABLET BY MOUTH ONCE DAILY Rx Instructions: Hold if SBP drop below 100 and DBP below 60 mmHg carvedilol [Coreg] 12.5 mg tablet 12.5 mg PO BID Qty: 60 2RF Rx Instructions: must administer with a meal/food valsartan 80 mg tablet 80 mg PO QDAY Referrals: No Primary/Family,Physician [Primary Care Provider] - Patient/Caregiver Discharge Instructions Discharge Activity: as per physical therapy and resume usual activities Education Materials: Hemodialysis, Diabetes and High Blood Pressure Print Language: Slovak Stand Alone Forms: Sara Award Info., Patient Portal Info Letter Discharge Order Discharge Orders: Discharge (Routine); Ordered 07/21/24 Ordered By: Ulises Mcintosh Quality Discharge Quality Measures VTE prophylaxis
[2024-07-21 12:00] VITALS: BP 147/103; PULSE 75; PULSE 79; RESP 18; TEMP 36.5; O2SAT 99
--- NOTE | 2024-07-21 13:00 | PD.NEPHCONS ---
History of Present Illness Data of Consult Requesting Physician: Katya Schofield DO Primary Care Provider: Physician No Primary/Family Consult Narrative History of present illness: 68 year old male with significant past medical history of hypertension, ESRD on HD [Thursday/Thursday] with Dr. Dinh, hypothyroidism, insulin-dependent type-2 diabetes was brought in from SNF to the ED for altered mental status. Nephrology consulted for dialysis arrangements cc:: cc: Katya Schofield DO Review of Systems Review of Systems Systems Reviewed: All systems reviewed, normal except as documented Meds Home Medications and Allergies Home Medications ?Medication ?Instructions ?Recorded ?Confirmed ?Type aspirin 81 mg tablet,delayed 81 mg PO 1XD 02/29/24 07/19/24 History release atorvastatin 80 mg tablet 80 mg PO QDAY 02/29/24 07/19/24 History levothyroxine 50 mcg tablet 50 mcg PO QDAY 02/29/24 07/19/24 History sevelamer carbonate 800 mg tablet 800 mg PO TID 02/29/24 07/19/24 History gabapentin 100 mg capsule 200 mg PO BID 07/19/24 07/19/24 History Allergies Allergy/AdvReac Type Severity Reaction Status Date / Time No Known Allergies Allergy Verified 07/28/22 16:17 Exam Vital Signs Temp Pulse Resp BP Pulse Ox O2 Del Method O2 Flow Rate 97.7 F 79 18 147/103 H 99 Room Air 1 07/21/24 12:00 07/21/24 12:00 07/21/24 12:00 07/21/24 12:00 07/21/24 12:00 07/21/24 12:00 07/18/24 12:28 Narrative Exam general no distress heart s1, s2 chest CTA farrukh Results Labs 07/21/24 05:21 07/21/24 05:21 Labs: Short CBC 07/21/24 Range/Units 05:21 WBC 5.9 (3.8-10.6) Thou/mm3 Hgb 14.3 (13.5-16.0) g/dL Hct 43.3 (41.0-53.0) % Plt Count 197 D (140-440) Thou/mm3 BMP 07/21/24 05:21 Sodium 131 L Potassium 4.4 D Chloride 94 L Carbon Dioxide 24.3 BUN 25 H Creatinine 3.6 H D Glucose 233 H D Calcium 9.1 Liver Function 05/29/25 Range/Units 05:21 Albumin 4.3 (3.4-4.8) gm/dL ABG Interpretation ABG results: 07/18/24 07:48 VBG pH 7.38 VBG pCO2 38 VBG pO2 40 VBG Base Excess -2 Assessment & Plan Assessment and plan (1) ESRD (end stage renal disease) on dialysis: Status: Acute Assessment and plan: arranged dialysis as need in hospital pt is going to be discharged today resume dialysis out pt (2) Hypertensive emergency: Status: Acute (3) Acute encephalopathy: Status: Acute
--- NOTE | 2024-07-21 13:07 | PC.NURSE ---
discharge pending /transportation
[2024-07-21 13:38] VITALS: BMI 13.0
[2024-07-21 14:30] VITALS: BP 146/83; PULSE 92; RESP 19; TEMP 37.3; O2SAT 99
--- NOTE | 2024-07-21 15:00 | PC.CC ---
Signed order for [employer] G7 sensors and reader submitted to [facility] via [employer] platform.
--- NOTE | 2024-07-22 10:47 | PC.CM ---
Addendum entered by Irma Burns RN 07/22/24 13:54: Patient accepted by [facility]. Pending start of care date. Original Note: Patient has [employer] insurance so I sent referral to [facility], and [facility]. I am waiting for response.
--- NOTE | 2024-07-25 08:20 | PC.CC ---
Michael MCMANUS accepted, booked, SOC 07/26/24
== END 2024-07-21 14:40 | disposition home health service (06) | DRG 304 ==
LOC: SERX 06:46 → SERHOLD 11:57 → S2NX 13:38
PROVIDERS: Emergency Medicine; Admitting Provider Internal Medicine; Emergency Provider Family Medicine; Visit Provider Internal Medicine
DX: I16.1 Hypertensive emergency (principal); G93.41 Metabolic encephalopathy; N18.6 End stage renal disease; E87.1 Hypo-osmolality and hyponatremia; F03.918 Unspecified dementia, unspecified severity, with other behavioral disturbance; I67.4 Hypertensive encephalopathy; I12.0 Hypertensive chronic kidney disease with stage 5 chronic kidney disease or end stage renal disease; E11.65 Type 2 diabetes mellitus with hyperglycemia; E78.5 Hyperlipidemia, unspecified; G47.00 Insomnia, unspecified; E11.22 Type 2 diabetes mellitus with diabetic chronic kidney disease; E03.9 Hypothyroidism, unspecified; Z99.2 Dependence on renal dialysis; Z79.4 Long term (current) use of insulin; Z91.81 History of falling
CPT/HCPCS: 36415; 70450; 71045; 71250; 74176; 80053; 80069; 80307; 80320; 81001; 82010; 82140; 82248; 82803; 83036; 83605; 83735; 83880; 84145; 84439; 84443; 84484; 85025; 85610; 85652; 85730; 86140; 87040; 87400; 87811; 93005; 94640; 96365; 96367; 96375; 97162; 99291; J0360; J0696; J1643; J1815; J2060; J2405; J3490; J7050; A9270; G0480

== ENCOUNTER 2024-07-22 02:04 | Emergency (ER) | payer OTHER, SELFPAY ==
[2024-07-22 02:05] VITALS: BMI 20.9
[2024-07-22 02:15] VITALS: BP 121/74; PULSE 75; RESP 18; TEMP 36.6; O2SAT 98
--- NOTE | 2024-07-22 02:23 | PD.EDMALE ---
ED Male Genitalurinary RME/HPI General Chief complaint: Urogenital-Male Stated complaint: URINARY RETENTION Time Seen by Provider: 07/22/24 02:20 Arrival date/time: 07/22/24 02:04 68M with history of HTN, ESRD and DM presents to ED for 1 day of urinary retention. Patient usually makes urine. Patient was discharged from upstairs yesterday and patient had a Garcia during entire visit. Garcia was removed without void trial. Patient has dialysis later today. Limitations: no limitations Related Data Home Medications ?Medication ?Instructions ?Recorded ?Confirmed aspirin 81 mg tablet,delayed 81 mg PO 1XD 02/29/24 07/19/24 release atorvastatin 80 mg tablet 80 mg PO QDAY 02/29/24 07/19/24 levothyroxine 50 mcg tablet 50 mcg PO QDAY 02/29/24 07/19/24 sevelamer carbonate 800 mg tablet 800 mg PO TID 02/29/24 07/19/24 gabapentin 100 mg capsule 200 mg PO BID 07/19/24 07/19/24 Previous Rx's ?Medication ?Instructions ?Recorded blood-glucose sensor (FreeStyle #1 ea 07/21/24 Linda 3 Plus Sensor device) blood-glucose,box feeder,cont #1 ea 07/21/24 (FreeStyle Linda 3 Caruthers) carvedilol 3.125 mg tablet 3.125 mg PO BID 1 month #60 tabs 07/21/24 clonidine HCl 0.1 mg tablet 0.1 mg PO BID PRN SBP >150 #20 tabs 07/21/24 furosemide 40 mg tablet 40 mg PO Q OTHER DAY #30 tabs 07/21/24 insulin degludec 100 unit/mL (3 15 unit (0.15 mL) subcut QPM 1 07/21/24 mL) subcutaneous pen month #4.5 mL insulin lispro 100 unit/mL 1 sliding scale dose subcut AC 1 07/21/24 subcutaneous solution (Admelog month #10 mL U-100 Insulin lispro) nifedipine 30 mg tablet,extended 30 mg PO QDAY 1 month #30 tabs 07/21/24 release pen needle, diabetic 29 gauge x #100 ea 07/21/24 1/2 valsartan 40 mg tablet 40 mg PO QDAY 1 month #30 tabs 07/21/24 Allergies Allergy/AdvReac Type Severity Reaction Status Date / Time No Known Allergies Allergy Verified 07/22/24 02:10 Review of Systems Review of Systems Systems Reviewed: All systems reviewed, normal except as documented Constitutional Constitutional: Reports system reviewed and no additional complaints, except as documented, Denies fever(s) and Denies headache(s) ENT Ears, Nose, Mouth, and Throat: Denies disequilibrium and Denies headache(s) Cardiovascular Cardiovascular: Reports system reviewed and no additional complaints, except as documented, Denies chest pain and Denies dyspnea Respiratory Respiratory: Reports system reviewed and no additional complaints, except as documented, Denies cough and Denies dyspnea Gastrointestinal Gastrointestinal: Reports system reviewed and no additional complaints, except as documented, Denies abdominal pain, Denies nausea and Denies vomiting Genitourinary Genitourinary: Reports as per HPI and Reports difficulty urinating Neurologic Neurologic: Reports system reviewed and no additional complaints, except as documented, Denies confusion, Denies disequilibrium and Denies headache(s) Psychiatric Psychiatric: Denies confusion Past Medical History Past Medical History NEUROLOGIC: Negative Seizures or Epilepsy CARDIAC: Positive Hypercholesterolemia and Hypertension; Negative Cardiac Disorders, Angina, Atherosclerotic Heart Disease, Aneurysm or Congestive Heart Failure RESPIRATORY: Negative Chronic Obstructive Pulmonary Disease (COPD) or Asthma GASTROINTESTINAL: Negative Gastrointestinal Disorders GENITOURINARY: Positive Renal Disease and Dialysis REPRODUCTIVE: Negative Fibroids, Genital Herpes, Gonorrhea, Syphilis or Testicular Cancer MUSCULOSKELETAL: Negative Arthritis, Gout, Carpal Tunnel Syndrome or Fractures ENT: Negative Cataracts ENDOCRINE: Positive Diabetes Mellitus Type 2 and Hypothyroidism; Negative Endocrine Disorders, Diabetes Mellitus Type 1 or [place]'s Disease HEMATOLOGIC: Negative Blood Disorders, Anemia, Leukemia, Hemophilia, Thalassemia, Sickle Cell Disease or Clotting Problems PSYCHO/SOCIAL: Positive Anxiety OTHER HISTORY: Positive Hospitalization and Autoimmune Disease; Negative Down Syndrome, Developmental Delay, Shingles, Falls, Organ Transplant or Testicular Cancer Family History FAMILY HISTORY: Negative Family Cancer Surgical History SURGICAL: Negative Cardiac Surgery, Open Heart Surgery, Coronary Artery Bypass Graft, Valve Replacement, Vascular Surgery, Coronary Stent, Cardiac Catheterization, Pacemaker, Angiogram, Auto Implanted Cardiovert Defib, Carotid Endarterectomy, Endocrine Surgery, Thyroidectomy, Ear Surgery, Tympanostomy Tube, Eye Surgery, Nose Surgery, Oral Surgery, Tonsillectomy, Adenoidectomy, Cochlear Implant, Corneal Transplant, Throat Surgery, Abdominal Surgery, Tracheostomy, Gastric Bypass Surgery, Gastrostomy, Bowel Surgery, Nephrectomy, Transurethral Resection, Joint Replacement, Amputation, Open Reduction Internal Fixation, Arthroscopy, Neurologic Surgery, Brain Shunt, Mastectomy, Vasectomy or Organ Transplant Social History SMOKING STATUS: Never smoker SECOND HAND EXPOSURE: No SUBSTANCE USE: unknown ED Exam General Limitations: Present no limitations General appearance: Present alert and in no apparent distress Head Head exam: Present atraumatic Eye Eye exam: Present normal appearance, PERRL and EOMI ENT ENT exam: Present normal exam, normal oropharynx and mucous membranes moist Neck Neck exam: Present normal inspection, full ROM and trachea midline Chest Chest inspection: Present normal inspection and symmetric chest wall rise Respiratory Respiratory exam: Present normal lung sounds bilaterally Cardiovascular Cardiovascular exam: Present regular rate, normal rhythm and normal heart sounds Abdominal Exam Abdominal exam: Present soft and normal bowel sounds Extremities Exam Extremities exam: Present normal inspection and full ROM Back Exam Back exam: Present normal inspection and full ROM Neurological Exam Neurological exam: Present alert, oriented X3 and CN II-XII intact Psychiatric Psychiatric exam: Present normal affect and normal mood Skin Skin exam: Present warm, dry, intact and normal color Course Quality Measures none Orders Category Date Time Status Catheter [Urinary Catheter] QS Care 07/22/24 02:21 Active Garcia to Leg Bag Routine Care 07/22/24 02:21 Ordered Vital Signs Vital signs: Vital Signs Temperature 98 F 07/22/24 02:15 Pulse Rate 75 07/22/24 02:15 Respiratory Rate 18 07/22/24 02:15 Blood Pressure 121/74 07/22/24 02:15 Pulse Oximetry (%) 98 07/22/24 02:15 Oxygen Delivery Method Room Air 07/22/24 02:15 O2 at 98% on RA and WNLs Urogenital - Male MDM Narrative MDM Narrative:: 68M with history of HTN, ESRD and DM presents to ED for 1 day of urinary retention. Patient usually makes urine. Patient was discharged from upstairs yesterday and patient had a Garcia during entire visit. Garcia was removed without void trial. Patient has dialysis later today. Physical exam reveals full ab. Patient is afebrile, calm, alert, though patient looks uncomfortable. Garcia inserted. Urine flowed freely and patient felt much better. Patient data External records reviewed:: [facility] previous records Clinical information provided by:: patient Social determinants that could affect healthcare access:: none Patient has the following chronic illnesses:: none How is presenting disease/condition affected by chronic disease/condition?: no chronic disease Evaluation data The following diagnostics were reviewed and interpreted by me:: other (specify) (none) Lab and/or radiology exams considered but not ordered:: not ordered Interpretation Summary: n/a Medications / Prescriptions Medications or Prescriptions considered but not ordered:: not ordered Medication administrations:: n/a Consultations Consultation(s) initiated? (list below): No Diagnosis Urogenital Male Differential Diagnosis: urinary tract infection, priapism, urethritis, epididymitis, genital herpes simplex, prostatitis, acute retention of urine and inguinal hernia Most likely diagnosis given after review of the tests above:: urinary retention Admission Indicated Admission indicated?: not indicated Admission Request Was there a request for admission?: No Disposition Plan Disposition Plan: Discharge Discharge Attestation Discharge Attestation: The patient and all family members were given an opportunity to ask questions and understood the discharge instructions. Discharge instructions specifically effects, indications for sooner follow up or return to the emergency department, and the expected course of current diagnosis. Patient condition: Stable Discharge Plan Plan Patient Disposition: HOME (Self Care) Discharge Disposition comment: Stable Prescriptions/Referrals Prescriptions/Med Rec: No Action atorvastatin 80 mg Tablet 80 mg PO QDAY aspirin 81 mg tablet,delayed release (DR/EC) 81 mg PO 1XD Patient Comments: TAKE 1 TABLET BY MOUTH ONCE DAILY sevelamer carbonate 800 mg Tablet 800 mg PO TID Rx Instructions: must administer with a meal/food levothyroxine 50 mcg Tablet 50 mcg PO QDAY gabapentin 100 mg capsule 200 mg PO BID carvedilol 3.125 mg tablet 3.125 mg PO BID 30 Days Qty: 60 0RF Rx Instructions: must administer with a meal/food valsartan 40 mg tablet 40 mg PO QDAY 30 Days Qty: 30 0RF nifedipine 30 mg tablet extended release 30 mg PO QDAY 30 Days Qty: 30 0RF furosemide 40 mg tablet 40 mg PO Q OTHER DAY Qty: 30 0RF Patient Comments: TAKE 1 TABLET BY MOUTH TWICE DAILY Rx Instructions: Take on the days you dont get hemodialysis clonidine HCl 0.1 mg tablet 0.1 mg PO BID PRN (Reason: SBP >150) Qty: 20 0RF (DME) pen needle, diabetic 29 gauge x 1/2 needle See Rx Instructions .Route Qty: 100 0RF Rx Instructions: As directed (DME) FreeStyle Linda 3 Plus Sensor Device See Rx Instructions .Route Qty: 1 0RF Rx Instructions: As directed (DME) FreeStyle Linda 3 Caruthers Misc See Rx Instructions .Route Qty: 1 0RF Rx Instructions: As directed insulin lispro [Admelog U-100 Insulin lispro] 100 unit/mL solution 1 sliding scale dose subcut AC 30 Days Qty: 10 0RF insulin degludec 100 unit/mL (3 mL) insulin pen 15 unit subcut QPM 30 Days Qty: 4.5 1RF Problem List Clinical Impression: Acute retention of urine Patient/Caregiver Discharge Instructions Education Materials: ED Urinary Retention, Male Additional Instructions: Please follow-up with PCP within 24-48 hours and return immediately if symptoms worsen. See PCP for Garcia removal and void trial. Print Language: Icelandic Stand Alone Forms: Patient Portal Info Letter JIN/LAUNDRY WASHER Supervising Physician JIN/LON Supervising Physician: Dr. Butterfield
[2024-07-22 03:06] VITALS: BP 139/82; PULSE 75; RESP 14; TEMP 37; O2SAT 99
== END 2024-07-22 03:07 | disposition home or self-care (01) ==
LOC: SERX 03:24
PROVIDERS: Emergency Provider Emergency Medicine; PCP Family Medicine
DX: R33.9 Retention of urine, unspecified (principal)
CPT/HCPCS: 51702; 99283

== ENCOUNTER 2024-07-27 02:19 | Inpatient (IN) | payer OTHER, MEDICARE, SELFPAY ==
[2024-07-27] VITALS (28 sets, daily range): BP systolic 172–210; BP diastolic 76–118; PULSE 66–98; RESP 12–23; TEMP 36.4–37; O2SAT 88–100; BMI 22.4
--- NOTE | 2024-07-27 03:03 | XR_ITS ---
Examination: CT brain head without contrast. 2-D sagittal coronal reconstructions Date and time of exam:July 27, 2024 0346 hours INDICATIONS: Headaches nausea vomiting today CTDI: vol (mGy):50.5 DLP: (mGycm):897 Technique: Multiple CT axial sections of the brain have been obtained, 5 mm slice thickness. Contrast has not been administered. 2-D sagittal, coronal reconstructions have been obtained Low dose protocols were performed. One or more of the following dose reduction techniques were used; automated exposure control, adjustment of the mA and/or KV according to patient size, use of iterative reconstruction technique. Findings: No significant ventricular enlargement. Intra-axial or extra-axial hemorrhage density is not seen. No mass effect or midline shift Basal cisterns are not remarkable. Fourth ventricle is midline. Cranial vault intact. Impression: Negative for acute hemorrhage, mass effect or midline shift
--- NOTE | 2024-07-27 03:05 | PD.EDRME ---
Rapid Medical Screening Exam E Arrival date/time: 07/27/24 02:19 68M with history of HTN, ESRD (MWF; dialysis scheduled for 829 today) and DM presents to ED with MITCHELL, dizziness, N/V, and dry mouth starting last night. Patient denies AMS, seizures, vision changes, and unilateral weakness. Chief Complaint: Nausea/Vomiting/Diarrhea Vital signs: Vital Signs Temperature 97.8 F 07/27/24 02:31 Pulse Rate 67 07/27/24 02:31 Respiratory Rate 19 07/27/24 02:31 Blood Pressure 191/76 H 07/27/24 02:31 Pulse Oximetry (%) 100 07/27/24 02:31 Oxygen Delivery Method Room Air 07/27/24 02:31
[2024-07-27 03:18] LABS: Collection Type, Urine Clean Catch; Squamous Epithelial Cell,Urine 0 /hpf (0-5)
[2024-07-27 03:31] LABS: Bacteria,Urine Rare; Bilirubin,Urine Negative (Negative); Blood,Urine 3+ (Negative); Budding Yeast,Urine Present; Clarity,Urine Clear (Clear/Hazy); Color,Urine Lt-Yellow (Lt Yel-Yel); Glucose, Urine 4+ (Negative); Ketones,Urine Negative (Negative); Leukocyte Esterase,Urine Negative (Negative); Nitrite,Urine Negative (Negative); PH,Urine 7.5 (5.0-7.0); Protein,Urine 2+ (Neg - Trace); RBC,Urine 140 /hpf (0-3); Specific Gravity,Urine 1.013 (1.001-1.035); Urobilinogen,Urine Negative mg/dL (0.0-1.0); WBC,Urine 12 /hpf (0-5)
[2024-07-27 03:33] LABS: Culture Indicated,Urine Yes
[2024-07-27] MEDS: ONDANSETRON INJ 2 MG/ML INJ 2 ML 4 MG IVP ×3 (03:42→22:31)
[2024-07-27 03:47] LABS: Base Excess, Venous 0 (-3-3); O2 Saturation, Venous 59 % (96-97); PCO2, Venous 44 mmHg (36-56); PO2, Venous 33 mmHg (15-58); pH, Venous 7.37 (7.33-7.66)
[2024-07-27 04:06] LABS: Basophils # (Auto) 0.1 Thou/mm3 (0.0-0.2); Basophils % (Auto) 1 % (0-2.5); Eosinophils % (Auto) 0 % (0-10); Hematocrit 40.7 % (41.0-53.0); Immature Granulocytes % (Auto) 1 % (0-0); Immature Granulocytes Auto 0.07 Thou/mm3 (0.00-0.00); Lymphocytes # (Auto) 0.3 Thou/mm3 (1.0-4.8); Lymphocytes % (Auto) 4 % (10-50); Mean Corpuscular HGB Conc 34.4 g/dl (31.0-37.0); Mean Corpuscular Hemoglobin 28.6 pg (25.0-35.0); Mean Corpuscular Volume 83 fL (80-100); Monocytes # (Auto) 0.5 Thou/mm3 (0.0-0.8); Monocytes % (Auto) 8 % (0-12); Neutrophils # (Auto) 5.7 Thou/mm3 (1.8-7.7); Neutrophils % (Auto) 86 % (37-80); Nucleated Red Blood Cell % 0 /100 WBC (0); Platelet Count 221 Thou/mm3 (140-440); RDW Standard Deviation 47.2 fL (35.1-43.9); Red Blood Count 4.89 Miln/mm3 (4.50-5.90); White Blood Count 6.6 Thou/mm3 (3.8-10.6)
[2024-07-27 04:07] LABS: Beta Hydroxybutyrate 0.4 mmol/L (<0.6)
[2024-07-27 04:33] LABS: Alanine Aminotransferase 28 U/L (10-49); Albumin, Serum 4.6 gm/dL (3.4-4.8); Albumin/Globulin Ratio 1.1 (1.2-2.2); Alkaline Phosphatase 216 U/L (46-116); Anion Gap 12 (7-16); Aspartate Amino Transferase 39 U/L (0-34); BUN/Creatinine Ratio 10 Ratio (12-20); Bilirubin,Total 1.7 mg/dL (0.3-1.2); Blood Urea Nitrogen 42 mg/dL (9-23); Calcium 8.1 mg/dL (8.3-10.6); Calcium (Corrected) 8.1 mg/dL (8.5-10.1); Carbon Dioxide 23.9 mMol/L (20.0-31.0); Chloride 84 mMol/L (98-107); Creatinine (Component) 4.4 mg/dL (0.6-1.3); Estimated Creatinine Clearance 13.3 mL/min (>60); Globulin 4.1 gm/dL (2.3-3.5); Magnesium 2.5 mg/dL (1.6-2.6); Potassium 5.2 mMol/L (3.4-5.1); Sodium 120 mMol/L (136-145); Total Protein 8.7 gm/dL (5.7-8.2); Troponin I 0.028 ng/mL (0.0-0.045); eGFR 14 See Note
--- NOTE | 2024-07-27 04:38 | PRELIM_ITS ---
CT scan of the head without intravenous contrast (axial sections with sagittal and coronal reformats) July 27, 2024 0346 hours Clinical history: Headache and nausea/vomiting Comparison: None. Findings: There is no evidence of intracranial hemorrhage, mass effect or midline shift. There are periventricular white matter hypodensities, compatible with chronic small vessel ischemia. There is moderate volume loss. The calvarium is unremarkable. The mastoid air cells and the visualized paranasal sinuses are clear. Impression: No evidence of intracranial hemorrhage, mass effect or midline shift. Periventricular chronic small vessel ischemia and volume loss. Report Electronically Signed By: Celso Patterson 07/27/2024 4:37:25 AM [EST]
[2024-07-27 05:14] LABS: Osmolality,Calculated 276 (275-295)
[2024-07-27 05:15] LABS: Glucose 535 mg/dL (74-106)
[2024-07-27] MEDS: SODIUM CHLORIDE 0.9% 1000 ML 1,000 ML 999 ML IV (06:12)
--- NOTE | 2024-07-27 06:32 | PC.NURSE ---
PROVIDER CHRIS INFORMED OF PATENTS BP 200/93
--- NOTE | 2024-07-27 06:38 | PD.EDNV ---
Nausea/Vomit./Diarrhea-RME/HPI General Chief complaint: Nausea/Vomiting/Diarrhea Stated complaint: NAUSEA VOMITING Time Seen by Provider: 07/27/24 06:28 Arrival date/time: 07/27/24 02:19 RME / HPI RME / HPI Narrative: 07/27/24 02:19 68M with history of HTN, ESRD (MWF; dialysis scheduled for 829 today) and DM presents to ED with MITCHELL, dizziness, N/V, and dry mouth starting last night. Patient denies AMS, seizures, vision changes, and unilateral weakness. DR. PEREZ MAIN ED EVALUATION: 68 year old male hypertension, diabetes, ESRD on HD MWF, hypothyroidism who presents to the emergency department with persistent weakness, lightheadedness, vomiting, and upper abdominal pain, since finishing his dialysis on Thursday. He was recently discharged from the hospital at the end of last week where his dialysis was increased from Thursday/Fridays to Thursday/Wednesdays/Thursday. On Thursday he went for his 4 AM dialysis where upon return her son had advised her that the patient seemed very sleepy when driving him home. She returned that evening and noted that he was lethargic and slept for the rest of the day. By yesterday evening he had started with upper abdominal pain and nausea and vomiting which then brings him to the emergency department early this morning. His states that he does have dementia, but feels that he is more confused from his baseline. She states since discharge his blood sugars at home has been running in the ranges of 500, and although insulin was decreased upon his discharge last week she has been giving him additional sliding scale insulin for these values at home. She denies fevers, chills, or sweats. Related Data Home Medications ?Medication ?Instructions ?Recorded ?Confirmed aspirin 81 mg tablet,delayed 81 mg PO 1XD 02/29/24 07/19/24 release atorvastatin 80 mg tablet 80 mg PO QDAY 02/29/24 07/19/24 levothyroxine 50 mcg tablet 50 mcg PO QDAY 02/29/24 07/19/24 sevelamer carbonate 800 mg tablet 800 mg PO TID 02/29/24 07/19/24 gabapentin 100 mg capsule 200 mg PO BID 07/19/24 07/19/24 Previous Rx's ?Medication ?Instructions ?Recorded blood-glucose sensor ([employer] #1 ea 07/21/24 Linda 3 Plus Sensor device) blood-glucose,head operator sulfide,cont #1 ea 07/21/24 (FreeStyle Linda 3 [place]) carvedilol 3.125 mg tablet 3.125 mg PO BID 1 month #60 tabs 07/21/24 clonidine HCl 0.1 mg tablet 0.1 mg PO BID PRN SBP >150 #20 tabs 07/21/24 furosemide 40 mg tablet 40 mg PO Q OTHER DAY #30 tabs 07/21/24 insulin degludec 100 unit/mL (3 15 unit (0.15 mL) subcut QPM 1 07/21/24 mL) subcutaneous pen month #4.5 mL insulin lispro 100 unit/mL 1 sliding scale dose subcut AC 1 07/21/24 subcutaneous solution (Admelog month #10 mL U-100 Insulin lispro) nifedipine 30 mg tablet,extended 30 mg PO QDAY 1 month #30 tabs 07/21/24 release pen needle, diabetic 29 gauge x #100 ea 07/21/24 1/2 valsartan 40 mg tablet 40 mg PO QDAY 1 month #30 tabs 07/21/24 Allergies Allergy/AdvReac Type Severity Reaction Status Date / Time No Known Allergies Allergy Verified 07/27/24 02:24 Review of Systems Review of Systems Systems Reviewed: All systems reviewed, normal except as documented Past Medical History Past Medical History CARDIAC: Positive Hypercholesterolemia and Hypertension GENITOURINARY: Positive Renal Disease and Dialysis ENDOCRINE: Positive Diabetes Mellitus Type 2 and Hypothyroidism PSYCHO/SOCIAL: Positive Anxiety OTHER HISTORY: Positive Hospitalization and Autoimmune Disease Family History FAMILY HISTORY: Negative Family Cancer Social History SMOKING STATUS: Never smoker SECOND HAND EXPOSURE: No SUBSTANCE USE: unknown ED Exam Narrative Physical exam: GENERAL APPEARANCE: Awake and alert to person only, lethargic, frequently closes her eyes and falls asleep during my encounter. HEENT: NC, AT. MMM. EOMI, no scleral icterus, mild pallor, oropharynx clear. NECK: Supple, no stiffness or restricted ROM. HEART: Normal rate and regular rhythm, normal S1/S1, no m/r/g LUNGS: CTAB, moving air well. No crackles or wheezes are heard. ABDOMEN: Soft, nontender, nondistended with good bowel sounds heard. BACK: No midline C/T/L spine pain or deformity, No CVAT, no obvious deformity. EXTREMITIES: Without cyanosis, clubbing or edema. MUSCULOSKELETAL: FROM of all major joints, no chest tenderness, right upper chest tunneled catheter that is clean dry and intact NEUROLOGICAL: Grossly nonfocal. Alert but lethargic unable to get orientation, moving all 4 extremities. CN not formally tested but appear grossly intact. Attempted to ambulate patient, however upon sitting up in bed patient clutched his abdomen and began vomiting Skin: Warm and dry without any rash. Course Quality Measures none Orders Category Date Time Status Bedside Blood Glucose NOW Care 07/27/24 09:23 Active Blood glucose [Bedside Blood Glucose] NOW Care 07/27/24 03:03 Completed COVID-19 Screening Questionnaire NOW Care 07/27/24 09:24 Active Decision to Admit X1 Care 07/27/24 09:24 Active EKG (ED ONLY) *Do not use* NOW Care 07/27/24 03:03 Completed Insert IV NOW Care 07/27/24 03:[address] chest abdomen pelvis wo Stat Exams 07/27/24 06:[address] head/brain wo con Stat Exams 07/27/24 03:03 Completed EKG (ED Only) Stat Exams 07/27/24 03:03 Ordered Beta Hydroxybutyrate Stat Lab 07/27/24 03:24 Completed CBC Stat Lab 07/27/24 03:24 Completed Comprehensive Metabolic Panel Stat Lab 07/27/24 03:24 Completed Magnesium Stat Lab 07/27/24 03:24 Completed Troponin I Stat Lab 07/27/24 03:24 Completed Urinalysis, C/S if Indicated Stat Lab 07/27/24 03:15 Completed Urine Culture Stat Lab 07/27/24 03:15 Received VBG [Venous Blood Gas] Stat Lab 07/27/24 03:24 Completed Insulin Regular Med 07/27/24 06:52 Discontinued 10 unit SC X1 ONE Metoclopramide Inj [Reglan Inj] Med 07/27/24 06:53 Discontinued 10 mg IVP X1 ONE Ondansetron Inj [Zofran Inj] Med 07/27/24 03:03 Discontinued 4 mg IVP X1 ONE Sodium Chloride 0.9% 1000 ml [Ns] 1,000 ml Med 07/27/24 05:15 Discontinued IV 999 mls/hr hydrALAZINE INJ [Apresoline Inj] Med 07/27/24 09:23 Once 10 mg IVP X1 ONE Vital Signs Vital signs: Vital Signs Temperature 97.8 F 07/27/24 02:31 Pulse Rate 67 07/27/24 02:31 Respiratory Rate 19 07/27/24 02:31 Blood Pressure 191/76 H 07/27/24 02:31 Pulse Oximetry (%) 100 07/27/24 02:31 Oxygen Delivery Method Room Air 07/27/24 02:31 Pulse ox is 100% on room air which is adequate. Nausea/Vomiting/Diarrhea MDM Narrative MDM Narrative:: Mr. Cha, is moderately ill-appearing, lethargic who presents with persistent lethargy since postdialysis on Thursday. Of note he was just discharged from the hospital on for an admission for encephalopathy that was possibly due to uremia. There was plans to increase his dialysis from twice a week to 3 times a week now. Otherwise notes insulin adjustments at home as well which included decreasing it. Blood sugars were ranging to the 500s at home. Here in the emergency department he is lethargic, unable to get out of bed as on my exam he would clutch his abdomen and actively start vomiting at that time. He denies worsening of his dizziness upon sitting just primarily due to the epigastric pain. On electronic medical record review I did note the CT of the chest abdomen pelvis done prior to this admission last time which shows no acute findings. He does have a chronic cavitary lesion in his right upper lung region. However given the severity of his symptoms here, clutching his abdomen and vomiting, I elected to repeat the CT of the chest abdomen and pelvis. Findings were similar to his previous CT abdomen without any acute findings, chronic findings remain. Laboratory testing does show some abnormalities including a markedly elevated blood sugar in the 500s. notes that he has been ranging there at home requiring some sliding scale rapid subQ and that his long-acting insulin was decreased upon discharge. He has a nonfocal neurologic exam, however I cannot test gait as I am unable to get him up. On baseline including Thursday prior to dialysis he was able to get up and walk around on a walker and sometimes independently in the evenings per the . As he has a significant deficit in his activity, and unable to even to get him to stand, I discussed the case with hospital services for readmission for further workup. Labs do not meet criteria for emergent dialysis today. He was treated here in the emergency department with antihypertensives and subcutaneous insulin. At this point suspect her symptoms do not point to an infection, nor sepsis, and therefore antibiotics at the point are not indicated. Patient data External records reviewed:: [facility] previous records Clinical information provided by:: patient Social determinants that could affect healthcare access:: none Patient has the following chronic illnesses:: hypertension, diabetes, ESRD on HD M/F, hypothyroidism How is presenting disease/condition affected by chronic disease/condition?: exacerbated by Evaluation data The following diagnostics were reviewed and interpreted by me:: lab results and radiology exam(s) Lab and/or radiology exams considered but not ordered:: None Interpretation Summary: As per narrative Medications / Prescriptions Medications / Prescriptions considered but not ordered:: None Medication administrations:: Medication Administration History Hydralazine HCl (Hydralazine Inj 20 Mg/Ml Vial) 10 mg IVP X1 ONE Stop: 07/27/24 09:24 Discontinued Medications Sodium Chloride (Ns) 1,000 mls @ 999 mls/hr IV .Q1H1M ONE Stop: 07/27/24 06:15 Last Infusion: 07/27/24 08:35 Dose: Infused Documented By: Admin: 07/27/24 06:12 Dose: 999 mls/hr Documented By: AMY Insulin Human Regular (Insulin Hum Regular 1 Unit/0.01 Ml (Per Unit)) 10 unit SC X1 ONE Stop: 07/27/24 06:53 Last Admin: 07/27/24 07:02 Dose: 10 unit Documented By: AMY Co-signed By: DAWNA Metoclopramide HCl (Metoclopramide Inj 5 Mg/Ml Vial 2 Ml) 10 mg IVP X1 ONE; Protocol Stop: 07/27/24 06:54 Last Admin: 07/27/24 07:00 Dose: 10 mg Documented By: AMY Ondansetron HCl (Ondansetron Inj 2 Mg/Ml Inj 2 Ml) 4 mg IVP X1 ONE; Protocol Stop: 07/27/24 03:04 Last Admin: 07/27/24 03:42 Dose: 4 mg Documented By: ERIC See above Consultations Consultation(s) initiated? (list below): No Diagnosis Nausea Differential Diagnosis: dehydration and other (Gastritis, pancreatitis, UTI, ataxia, seizure, CVA) Most likely diagnosis given after review of the tests above:: See below Admission Indicated Admission indicated?: indicated Admission Request Was there a request for admission?: Yes Admission Attestation Admission request attestation: Discussed case with [] from Hospitalist service regarding admission. Discussed patients ED course, exam findings, labs, and radiology results. The Hospitalist [agrees,declines] to accept the patient for admission. Disposition Plan Disposition Plan: Admit Critical Care Time Critical Care Time Critical Care Time: Yes Total Critical Care Time (min.): 35 Attestation: Excluding billable procedures for the rapid response, analysis, management, treatment, and documentation event the very possible risk of cardiovascular and/or neurologic decompensation or Discharge Plan Plan Patient Disposition: Admit Acute Care w/in Hospital Prescriptions/Referrals Prescriptions/Med Rec: No Action atorvastatin 80 mg Tablet 80 mg PO QDAY aspirin 81 mg tablet,delayed release (DR/EC) 81 mg PO 1XD Patient Comments: TAKE 1 TABLET BY MOUTH ONCE DAILY sevelamer carbonate 800 mg Tablet 800 mg PO TID Rx Instructions: must administer with a meal/food levothyroxine 50 mcg Tablet 50 mcg PO QDAY gabapentin 100 mg capsule 200 mg PO BID carvedilol 3.125 mg tablet 3.125 mg PO BID 30 Days Qty: 60 0RF Rx Instructions: must administer with a meal/food valsartan 40 mg tablet 40 mg PO QDAY 30 Days Qty: 30 0RF nifedipine 30 mg tablet extended release 30 mg PO QDAY 30 Days Qty: 30 0RF furosemide 40 mg tablet 40 mg PO Q OTHER DAY Qty: 30 0RF Patient Comments: TAKE 1 TABLET BY MOUTH TWICE DAILY Rx Instructions: Take on the days you dont get hemodialysis clonidine HCl 0.1 mg tablet 0.1 mg PO BID PRN (Reason: SBP >150) Qty: 20 0RF (DME) pen needle, diabetic 29 gauge x 1/2 needle See Rx Instructions .Route Qty: 100 0RF Rx Instructions: As directed (DME) FreeStyle Linda 3 Plus Sensor Device See Rx Instructions .Route Qty: 1 0RF Rx Instructions: As directed (DME) FreeStyle Linda 3 [place] Misc See Rx Instructions .Route Qty: 1 0RF Rx Instructions: As directed insulin lispro [Admelog U-100 Insulin lispro] 100 unit/mL solution 1 sliding scale dose subcut AC 30 Days Qty: 10 0RF insulin degludec 100 unit/mL (3 mL) insulin pen 15 unit subcut QPM 30 Days Qty: 4.5 1RF Referrals: Toby Peña [Primary Care Provider] - In 1 week Problem List Clinical Impression: Acute encephalopathy, ESRD (end stage renal disease) on dialysis, Hypertensive emergency Patient/Caregiver Discharge Instructions Print Language: Kazakh Stand Alone Forms: Sara Award Info., Patient Portal Info Letter
--- NOTE | 2024-07-27 06:52 | XR_ITS ---
Examination: CT chest, without intravenous contrast. CT abdomen, without intravenous contrast. CT pelvis, without intravenous contrast. 2-D sagittal and coronal reconstructions. 3-D reconstructions. Date and time of exam:July 27, 2024 0733 hours Comparison July 18, 2024 INDICATIONS: Chest pain over abdominal pain nausea vomiting today CTDI vol (mgy) 6.37 DLP (MGycm)443 Technique: Multiple CT images, 3.0 mm slice thickness, obtained chest, abdomen, pelvis, with the high-resolution 64 slice scanner.. Sagittal and coronal 2-D reconstructions are obtained. 3-D reconstructions Low dose protocols were performed. One or more of the following dose reduction techniques were used; automated exposure control, adjustment of the mA and/or KV according to patient size, use of iterative reconstruction technique. Findings: No thoracic aortic aneurysmal dilatation Pulmonary artery segments are not enlarged Again noted cavitary parenchymal disease in the right upper lobe Liver is mildly irregular in contour Absent gallbladder Spleen not enlarged No pancreatic mass Perinephric stranding, no hydronephrosis Aorta normal size Trace ascites All of the abdomen and pelvic images are degraded by patient motion Normal appendix Urinary bladder wall thickening up to 10 mm Mild prostatomegaly urinary Garcia catheter noted Moderate osteopenia IMPRESSION: No change in cavitary parenchymal disease in the right upper lobe Perinephric stranding, clinical correlation advised No bowel obstruction. Normal appendix Marked thickening of the urinary bladder wall Trace ascites
[2024-07-27] MEDS: METOCLOPRAMIDE INJ 5 MG/ML VIAL 2 ML 10 MG IVP (07:00)
[2024-07-27] MEDS: INSULIN HUM REGULAR 1 UNIT/0.01 ML (PER UNIT) 10 UNIT SC (07:02)
--- NOTE | 2024-07-27 08:35 | PC.NURSE ---
started pt on ice chips and sips of water per md
[2024-07-27] MEDS: hydrALAZINE INJ 20 MG/ML VIAL 10 MG IVP (09:54)
--- NOTE | 2024-07-27 13:08 | PC.NURSE ---
gave pt meal tray per order
--- NOTE | 2024-07-27 13:55 | PC.NURSE ---
pt started having increased nausea so called admit md for further orders and meds for nausea.
--- NOTE | 2024-07-27 14:17 | XR_ITS ---
Examination: Abdomen sonogram, Limited Date and time of exam: July 27, 2024 1909 hours INDICATIONS: Elevated bilirubin right upper abdominal pain epigastric pain nausea vomiting beginning 2 days ago Technique: Real-time osman scale transabdominal sonographic images of the upper abdomen obtained. Findings: Absent gallbladder Common bile duct 0.8 cm no stones Pancreatic head 2.3 cm Liver 16.3 cm fatty infiltration no focal liver lesions Normal hepatopedal portal venous Patent IVC IMPRESSION: Absent gallbladder No common bile duct stones Mild hepatomegaly fatty liver
--- NOTE | 2024-07-27 14:20 | PC.NURSE ---
pt went to dialysis per md order
--- NOTE | 2024-07-27 14:52 | ESHP_ITS ---
<Statement entered by Je Magallon MD - 07/28/24 07:13> I discussed with and supervised the international tax manager physician involved in the care of this patient. Patient assessment and plan was discussed with entire medicine team, including my attending. I agree with the assessment and plan as documented by international tax manager doctor. Patient care was discussed with my attending physician Dr. Gaurav Magallon, PGY-2 Documentation for date of: 07/27/24 HPI History of Present Illness Chief complaint: Nausea and vomiting History of present illness: Patient is poor historian and is alert, awake and oriented A 68 year old male with significant past medical history of hypertension, ESRD on HD [Thursday/Thu/Thursday] with Dr. Dinh, hypothyroidism, insulin-dependent type-2 diabetes was brought in from [facility] to the ED with chief complaint of nausea, vomiting, lower abdominal pain and lightheadedness since 1 week. Patient was recently discharged from the hospital on 07/21/2024. Patient endorsed that he is having all this complaint since discharge and later his dialysis sessions was increased to thrice daily from 2 times. Patient was noted to have elevated blood pressures running around 500 since discharge and also reported that his insulin dosage was decreased during discharge from hospital from last visit. Denies chest pain, shortness of breath, fever, cough, focal neurological deficits. ED course: - Vitals are stable at the time of admission except for elevated blood pressure 191/76 mmHg - Labs showed sodium 120, potassium 5.2, chloride 84, BUN 42, creatinine 4.4, glucose 535, total bilirubin 1.7, AST 39, negative beta hydroxybutyrate - Urinalysis showed 2+ proteinuria, 4+ glucose, 3+ blood, 140 RBC, 12 WBC - Head CT is negative for acute hemorrhage, mass effect or midline shift - CT abdomen/pelvis showed no change in cavitary parenchymal disease in right upper lobe, perinephric stranding, marked thickening of the urinary bladder wall, trace ascites Past medical history: Hypertension, ESRD on HD [Thursday/Thursday], hypothyroidism, diabetes mellitus on insulin Past surgical history: Cholecystectomy Social history: Denies smoking, alcohol, other illicit drug abuse. Review of Systems Review of Systems Systems Reviewed: All systems reviewed, normal except as documented Exam Vital Signs Temp Pulse Resp BP Pulse Ox O2 Del Method O2 Flow Rate 98 F 77 23 H 198/105 H 99 Nasal Cannula 2 07/27/24 14:33 07/27/24 14:46 07/27/24 14:33 07/27/24 14:46 07/27/24 14:33 07/27/24 12:14 07/27/24 14:33 Narrative Exam General: Awake. Appears chronically ill HEENT: Normocephalic, atraumatic, mucous membranes moist. Heart: Regular rate and rhythm, no murmurs. Lungs: Clear to auscultation with no wheezing or crackles. Abdomen: Soft, nondistended, nontender, positive bowel sounds. ?No guarding or rebound tenderness. Neurologic: Alert and oriented x3, no gross neurological deficit, and patient able to move all 4 extremities. Extremities: No edema. Skin: No rash or ecchymoses. Results: Labs 07/27/24 03:24 07/27/24 03:24 Labs: Short CBC 07/27/24 Range/Units 03:24 WBC 6.6 (3.8-10.6) Thou/mm3 Hgb 14.0 (13.5-16.0) g/dL Hct 40.7 L (41.0-53.0) % Plt Count 221 (140-440) Thou/mm3 BMP 07/27/24 03:24 Sodium 120 L Potassium 5.2 H Chloride 84 L Carbon Dioxide 23.9 BUN 42 H Creatinine 4.4 H* D Glucose 535 H* Calcium 8.1 L Cardiac Enzymes 07/27/24 Range/Units 03:24 Troponin I 0.028 (0.0-0.045) ng/mL Liver Function 07/27/24 Range/Units 03:24 Total Bilirubin 1.7 H (0.3-1.2) mg/dL AST 39 H (0-34) U/L ALT 28 (10-49) U/L Alkaline Phosphatase 216 H (46-116) U/L Albumin 4.6 (3.4-4.8) gm/dL Urine 07/27/24 Range/Units 03:15 Urine Color Lt-Yellow (Lt Yel-Yel) Urine Clarity Clear (Clear/Hazy) Urine pH 7.5 H (5.0-7.0) Ur Specific [place] 1.013 (1.001-1.035) Urine Protein 2+ A (Neg - Trace) Urine Glucose (UA) 4+ A (Negative) ABG Interpretation ABG results: 07/27/24 03:24 VBG pH 7.37 VBG pCO2 44 VBG pO2 33 VBG Base Excess 0 Quality Measures Quality Measures none Advance care planning discussed with:: patient Medications Home Medications and Allergies Home Medications ?Medication ?Instructions ?Recorded ?Confirmed ?Type aspirin 81 mg tablet,delayed 81 mg PO 1XD 02/29/24 History release atorvastatin 80 mg tablet 80 mg PO QDAY 02/29/2407/19 History levothyroxine 50 mcg tablet 50 mcg PO QDAY 02/29/24 History sevelamer carbonate 800 mg tablet 800 mg PO TID 07/19/24 History gabapentin 100 mg capsule 200 mg PO BID 07/19/2407/19 History Allergies Allergy/AdvReac Type Severity Reaction Status Date / Time No Known Allergies Allergy Verified 07/27/24 02:24 Visit Medications Acetaminophen (Acetaminophen 325 Mg Tablet) 650 mg PO Q6H PRN PRN Reason: Fever >101.5 Stop: 08/26/24 09:42 Atorvastatin Calcium (Atorvastatin Calcium 20 Mg Tablet) 40 mg PO HS JOSE EDUARDO Stop: 08/26/24 20:59 Dextrose (Dextrose 50%-Water Inj 50 Ml Syringe) 25 ml IV Q15MIN PRN PRN Reason: BG 50-70 responsive npo pt Stop: 08/26/24 14:03 Dextrose (Dextrose 50%-Water Inj 50 Ml Syringe) 50 ml IV Q15MIN PRN PRN Reason: BG <50 OR BG <70 & pt unresponsive Stop: 08/26/24 14:03 Glucagon (Glucagon Inj 1 Mg Vial) 1 mg IM Q15MIN PRN PRN Reason: BG <70, and no IV access Insulin Human Lispro (Insulin Lispro (Admelog) 1 Unit/0.01 Ml Unit) 0 unit SC ACHS JOSE EDUARDO; Protocol Stop: 08/26/24 16:59 Levothyroxine Sodium (Levothyroxine Sodium 25 Mcg Tablet) 50 mcg PO ACBR JOSE EDUARDO Stop: 08/27/24 05:59 Ondansetron HCl (Ondansetron Inj 2 Mg/Ml Inj 2 Ml) 4 mg IVP Q8HR PRN; Protocol PRN Reason: NAUSEA OR VOMITING Stop: 08/26/24 14:03 Last Admin: 07/27/24 14:10 Dose: 4 mg Pantoprazole Sodium (Pantoprazole Inj 40 Mg Vial) 40 mg IVP QDAY JOSE EDUARDO Stop: 08/27/24 08:59 Discontinued Medications Hydralazine HCl (Hydralazine Inj 20 Mg/Ml Vial) 10 mg IVP X1 ONE Stop: 07/27/24 09:24 Last Admin: 07/27/24 09:54 Dose: 10 mg Sodium Chloride (Ns) 1,000 mls @ 999 mls/hr IV .Q1H1M ONE Stop: 07/27/24 06:15 Last Infusion: 07/27/24 08:35 Dose: Infused Insulin Human Regular (Insulin Hum Regular 1 Unit/0.01 Ml (Per Unit)) 10 unit SC X1 ONE Stop: 07/27/24 06:53 Last Admin: 07/27/24 07:02 Dose: 10 unit Metoclopramide HCl (Metoclopramide Inj 5 Mg/Ml Vial 2 Ml) 10 mg IVP X1 ONE; Protocol Stop: 07/27/24 06:54 Last Admin: 07/27/24 07:00 Dose: 10 mg Ondansetron HCl (Ondansetron Inj 2 Mg/Ml Inj 2 Ml) 4 mg IVP X1 ONE; Protocol Stop: 07/27/24 03:04 Last Admin: 07/27/24 03:42 Dose: 4 mg Assessment & Plan Plan A 68 year old male with significant past medical history of hypertension, ESRD on HD [Thursday/Thu/Thursday] with Dr. Dinh, hypothyroidism, insulin-dependent type-2 diabetes was brought in from [facility] to the ED with chief complaint of nausea, vomiting, lower abdominal pain and lightheadedness since 1 week. # Hypertensive urgency # History of hypertension - Vitals at the time of admission significant for blood pressure 191/76 mmHg - Patient denies chest pain, shortness of breath, focal neurological deficits - Labs are significant for sodium 120, potassium 5.2, creatinine 4.4, BUN 42 Plan - Patient is given hydralazine in the ED - Amlodipine 5 Mg one-time dose is given - Will resume antihypertensive medications - Goal of the blood pressure is to keep it below 160/110 mmHg # Nausea, vomiting, unclear etiology # Abdominal pain # Hyperbilirubinemia - Patient is complaining of nausea and vomiting since 1 week since last hospital discharge - Since total bilirubin is 1.7, AST is 39, ALP 216 - CT abdomen/pelvis did not show any significant abnormality Plan -Gallbladder ultrasound is ordered to rule out for any biliary duct obstruction # ESRD on HD [M/W/F] # Mild hyperkalemia - Patient is on HD twice weekly, since last week patient dialysis sessions is increased to thrice weekly - potassium is 5.2 at the time of admission - Last dialysis session is on 07/25/2024 Plan - Dr. Prieto is consulted and patient will be getting his HD today as per his routine schedule - Will avoid nephrotoxic medications and renally dose medications # Diabetes mellitus, on insulin - A1c is 7.8 on 07/18/2024 - Started on insulin sliding scale ACHS - Will add bolus insulin tomorrow based on fasting blood sugar # Chronic hyponatremia - Sodium at the time of admission is 120 - Glucose at the time of admission is 535 - Corrected sodium for glucose is around 127 which is his normal baseline - Will continue to monitor electrolytes # Hypothyroidism - Free T4 and TSH is within normal limits as of 07/18/2024 - Resume his home levothyroxine 50 mcg Hospital Maintenance: Dispo: Tele DVT ppx: Heparin GI ppx: Protonix Diet: Low carb consistent and renal IV lines: Peripheral Code status: Full Patient plan of care was discussed with the attending physician, Dr. Nolasco and senior resident Dr. Naun Vela, PGY1 Attending Provider Attestation/Addendum I have discussed and was present for the essential components of the history, physical examination, diagnosis, and treatment plan with the resident. I agree with the patient's care as documented by the resident and amended herein by me. Alberto Nolasco DO. Although this document has been carefully reviewed, there may still be some phonetic and other typographical errors. These errors are purely grammatical due to imperfections in the software program and should not be construed in any way to compromise the substance of the patient's medical care during this visit.
--- NOTE | 2024-07-27 15:07 | PC.NURSE ---
report given to lisa mcdonough on tele bed 354 on tele monitor. pt is currently in dialysis and will go to floor once done.
[2024-07-27 15:34] LABS: Hepatitis A Antibody IgM Non Reactive (Non React); Hepatitis B Core Antibody IgM Non Reactive (Non React); Hepatitis B Surface Ab NonReact(Not Immune) (Immune); Hepatitis B Surface Antigen Non Reactive (Non React); Hepatitis C Antibody Non Reactive (Non React)
--- NOTE | 2024-07-27 18:00 | PC.NURSE ---
Patient transported from dialysis via [facility] per information systems security analyst, oTmmie.
[2024-07-27] MEDS: amLODIPine BESYLATE 5 MG TABLET PO (18:09)
[2024-07-27] MEDS: carVEDILOL 3.125 MG TABLET PO (18:13)
--- NOTE | 2024-07-27 20:30 | PC.NURSE ---
Called Dr. Cortez regarding patient requesting sleep medication, pt was made NPO pending speech MD robbie does not want to give IV meds as to not make the patient more confused. Family at bedside and made aware will continue to monitor.
[2024-07-27] MEDS: LABETALOL INJ 5 MG/ML VIAL 20 ML 10 MG IVP (20:50)
[2024-07-27] MEDS: HEPARIN SOD INJ 5000 UNIT/ML VIAL SC (22:30)
[2024-07-28] VITALS (9 sets, daily range): BP systolic 106–166; BP diastolic 55–84; PULSE 65–77; RESP 14–16; TEMP 36.3–36.4; O2SAT 98–99; BMI 22.4
[2024-07-28 05:38] LABS: Alanine Aminotransferase 19 U/L (10-49); Alkaline Phosphatase 149 U/L (46-116); Anion Gap 11 (7-16); Aspartate Amino Transferase 30 U/L (0-34); BUN/Creatinine Ratio 5 Ratio (12-20); Bilirubin,Total 0.8 mg/dL (0.3-1.2); Blood Urea Nitrogen 18 mg/dL (9-23); Calcium 8.6 mg/dL (8.3-10.6); Calcium (Corrected) 8.6 mg/dL (8.5-10.1); Chloride 94 mMol/L (98-107); Creatinine (Component) 3.6 mg/dL (0.6-1.3); Estimated Creatinine Clearance 16.2 mL/min (>60); Globulin 3.9 gm/dL (2.3-3.5); Glucose 88 mg/dL (74-106); Osmolality,Calculated 261 (275-295); Potassium 3.6 mMol/L (3.4-5.1); Sodium 130 mMol/L (136-145); Thyroid Stimulating Hormone 6.11 uIU/mL (0.55-4.78); Total Protein 7.9 gm/dL (5.7-8.2); eGFR 18 See Note
[2024-07-28] MEDS: HEPARIN SOD INJ 5000 UNIT/ML VIAL SC ×2 (05:56→14:30)
[2024-07-28 06:04] LABS: Basophils % (Auto) 1 % (0-2.5); Eosinophils % (Auto) 0 % (0-10); Hematocrit 42.2 % (41.0-53.0); Hemoglobin 14.3 g/dL (13.5-16.0); Immature Granulocytes % (Auto) 1 % (0-0); Immature Granulocytes Auto 0.04 Thou/mm3 (0.00-0.00); Lymphocytes # (Auto) 0.5 Thou/mm3 (1.0-4.8); Lymphocytes % (Auto) 8 % (10-50); Mean Corpuscular HGB Conc 33.9 g/dl (31.0-37.0); Mean Corpuscular Hemoglobin 28.9 pg (25.0-35.0); Mean Corpuscular Volume 85 fL (80-100); Monocytes # (Auto) 0.8 Thou/mm3 (0.0-0.8); Monocytes % (Auto) 13 % (0-12); Neutrophils # (Auto) 4.8 Thou/mm3 (1.8-7.7); Neutrophils % (Auto) 77 % (37-80); Nucleated Red Blood Cell % 0 /100 WBC (0); Platelet Count 217 Thou/mm3 (140-440); Red Blood Count 4.95 Miln/mm3 (4.50-5.90); White Blood Count 6.2 Thou/mm3 (3.8-10.6)
[2024-07-28] MEDS: LEVOTHYROXINE SODIUM 25 MCG TABLET 50 MCG PO (08:53)
[2024-07-28] MEDS: ASPIRIN EC 81 MG TABEC PO ×2 (08:53→09:02)
[2024-07-28] MEDS: NIFEdipine XL 30 MG TABCR PO (08:54)
[2024-07-28] MEDS: GABAPENTIN 100 MG CAPSULE 200 MG PO (08:54)
[2024-07-28] MEDS: VALSARTAN 40 MG TABLET PO (08:54)
[2024-07-28] MEDS: carVEDILOL 3.125 MG TABLET PO (08:54)
[2024-07-28] MEDS: Furosemide 40 MG TABLET PO (08:54)
[2024-07-28] MEDS: PANTOPRAZOLE INJ 40 MG VIAL IVP (08:55)
--- NOTE | 2024-07-28 08:57 | PCS.ST ---
Natalie avalos completed. See report for details. No c/o swallowing difficulty. Tolerated chewables. Prolonged mastication. No s/s of aspiration. Dysphagia 2/Regular liquids. ST will follow up
--- NOTE | 2024-07-28 09:47 | PC.NURSE ---
's Gaurav, Annmarie Vela Shetab, and Harris in to see pt.
[2024-07-28] MEDS: INSULIN LISPRO (AdmeLOG) 1 UNIT/0.01 ML UNIT 4 UNIT SC (12:33)
[2024-07-28] MEDS: INSULIN LISPRO (AdmeLOG) 1 UNIT/0.01 ML UNIT SC (12:34)
--- NOTE | 2024-07-28 13:38 | PC.SS ---
Patient is alert/oriented. Malagasy speaking only. Ambulatory Care Nurse utilized. Patient states he resides with . Admitted for altered sensorium. Patient states he's independent with ADL's. He uses a walker at home as needed. Patient is employed at the [employer]. Patient states his transports him to appointments. [facility]acy: [facility] to transport upon discharge. Patient's d/c plan is to return home.
[2024-07-28] MEDS: SEVELAMER CARBONATE 800 MG TABLET PO (14:30)
--- NOTE | 2024-07-28 15:08 | ESDS_ITS ---
<Statement entered by Je Magallon MD - 07/28/24 21:52> I discussed with and supervised the engineering intern physician involved in the care of this patient. Patient assessment and plan was discussed with entire medicine team, including my attending. I agree with the assessment and plan as documented by engineering intern doctor. Patient care was discussed with my attending physician Dr.Tingle Je Magallon, PGY-2 Planned Discharge Date 07/28/24 DS: Providers Provider Date of admission: 07/27/24 09:43 Primary care physician: Toby Peña Admitting Provider: Tab Nolasco DO Attending Provider on Admission: Tab Nolasco DO Consults: 07/27/24 11:29 Consult to Nephrology Routine Comment: ESRD Consulting Provider: Fabrizio (REF JOELLEN)Baudilio 07/27/24 18:21 Referral Speech Therapy Routine Comment: 07/27/24 19:10 Referral Registered Dietitian Routine Comment: 07/28/24 08:37 Referral Physical Therapy Stat Comment: Physician Instructions: Attending Provider on DC: Demetris Vela MD Discharging Provider: Demetris Vela MD DS: Diagnosis Problem List Completed Was Problem List Reviewed/Reconciled?: Yes Hospital Course Hospital Course Hospital course: A 68 year old male with significant past medical history of hypertension, ESRD on HD [Thursday/Thu/Thursday] with Dr. Dinh, hypothyroidism, insulin-dependent typ e-2 diabetes was brought in from SNF to the ED with chief complaint of nausea, vomiting, lower abdominal pain and lightheadedness since 1 week. Patient was recently discharged from the hospital on 07/21/2024. Hospital course: Vitals are stable at the time of admission except for elevated blood pressure 191/76 mmHg. Labs showed sodium 120, potassium 5.2, chloride 84, BUN 42, creatinine 4.4, glucose 535, total bilirubin 1.7, AST 39, negative beta hydroxybutyrate. Urinalysis showed 2+ proteinuria, 4+ glucose, 3+ blood, 140 RBC, [address] is negative for acute hemorrhage, mass effect or midline shift. CT abdomen/pelvis showed no change in cavitary parenchymal disease in right upper lobe, perinephric stranding, marked thickening of the urinary bladder wall, trace ascites. Gallbladder ultrasound is ordered to look for any obstructive pathology, came back negative. Patient was treated with insulin and antihypertensives during the hospital stay. Patient missed dialysis session on the day of admission for which barrel washer Dr. Dinh was consulted and patient got his HD session. During the hospital stay, patient's raised the concern of difficulty in swallowing at home for which speech-language evaluation is ordered and patient passed the speech eval without difficulty in eating. Physical therapy recommended discharge to home and continued to use his walker. Patient's is at the bedside with son on phone call on the day of discharge. Answered all their questions with the help of freelance makeup artist for about 40 minutes and recommended to follow-up with the primary care provider for better control of glucose and blood pressure. Recommended to have strict dietary control as patient is taking too much sugars. Also recommended to follow-up with the primary care provider to have a stationary plant operators referral if patient is found to have dysphagia again. Patient will be discharged with the Garcia as patient is having Garcia catheter since last admission and is admitted with Garcia catheter in situ. Recommend to follow-up urologist for further evaluation Patient is discharged to home with following medications and recommendations -Follow-up with PCP within 1 week of discharge. If you do not have appointment, please follow-up with the [facility] with Dr. Vela. Call [phone] to make an appointment. -Follow up with Dr. Coley within 1 week of discharge. -Recommended to follow-up with urologist -Recommended to continue dialysis sessions as scheduled -Recommended to continue home medications as directed and monitor blood sugars -Recommended salt and fluid restriction. -Return to ED if symptoms persist or return # Hypertensive urgency, resolved # History of hypertension # Hyperbilirubinemia, resolved # ESRD on HD [M/W/F] # Mild hyperkalemia, resolved # Diabetes mellitus, on insulin # Chronic hyponatremia # Hypothyroidism Patient plan of care was discussed with the attending physician, Dr. Nolasco and senior resident Dr. Naun Vela, PGY1 Time Spent with Patient Time attestation: Total time spent providing and/or coordinating discharge services: Time spent: Greater than 30 minutes Exam Vital Signs Temp Pulse Resp BP Pulse Ox O2 Del Method O2 Flow Rate 97.3 F 77 16 106/55 L 98 Room Air 1 07/28/24 11:49 07/28/24 12:00 07/28/24 11:49 07/28/24 11:49 07/28/24 11:49 07/28/24 11:49 07/27/24 20:00 Narrative Exam General: Awake. Frail HEENT: Normocephalic, atraumatic, mucous membranes moist. Heart: Regular rate and rhythm, no murmurs. Lungs: Clear to auscultation with no wheezing or crackles. Abdomen: Soft, nondistended, nontender, positive bowel sounds. ?No guarding or rebound tenderness. Neurologic: Alert and oriented x3, no gross neurological deficit, and patient able to move all 4 extremities. Extremities: No edema. Skin: No rash or ecchymoses. Discharge Plan Plan Patient Disposition: HOME (Self Care) Patient condition on transfer: Stable Care Plan Goals: -Jackie de seguimiento con fortune m?dico de cabecera dentro de lorena semana despu?s del mau. Si no tiene jackie, por favor, ame lorena jackie de seguimiento con el Dr. Vela en el centro cl?tucker acad?monica. Llame al [phone] para programar lorena jackie. -Se recomienda continuar con las sesiones de di?lisis seg?n lo programado. -Jackie de seguimiento con el Dr. Coley dentro de lorena semana despu?s del mau. -Se recomienda lorena jackie de seguimiento con un ur?logo. -Se recomienda continuar con la medicaci?n en casa seg?n las indicaciones y controlar la glucemia. -Se recomienda restricci?n de tiffany y l?quidos. -Regrese a urgencias si los s?ntomas persisten o reaparecen. -Follow-up with PCP within 1 week of discharge. If you do not have appointment, please follow-up with the [facility] with Dr. Vela. Call [phone] to make an appointment. -Recommend to continue dialysis sessions as scheduled. -Follow up with Dr. Coley within 1 week of discharge. -Recommended to follow-up with Urologist. -Recommended to continue home medications as directed and monitor blood sugars. -Recommended salt and fluid restriction. -Return to ED if symptoms persist or return. Prescriptions/Referrals Prescriptions/Med Rec: Continued insulin degludec [Tresiba FlexTouch U-200] 200 unit/mL (3 mL) insulin pen 28 unit subcut QPM (DME) FreeStyle Linda 3 Plus Sensor Device See Rx Instructions .Route Qty: 1 3RF Rx Instructions: As directed (DME) FreeStyle Linda 3 [place] Misc See Rx Instructions .Route Qty: 1 1RF Rx Instructions: As directed atorvastatin 80 mg Tablet 80 mg PO QDAY aspirin 81 mg tablet,delayed release (DR/EC) 81 mg PO 1XD Patient Comments: TAKE 1 TABLET BY MOUTH ONCE DAILY sevelamer carbonate 800 mg Tablet 800 mg PO TID Rx Instructions: must administer with a meal/food levothyroxine 50 mcg Tablet 50 mcg PO QDAY gabapentin 100 mg capsule 200 mg PO BID carvedilol 3.125 mg tablet 3.125 mg PO BID 30 Days Qty: 60 0RF Rx Instructions: must administer with a meal/food valsartan 40 mg tablet 40 mg PO QDAY 30 Days Qty: 30 0RF nifedipine 30 mg tablet extended release 30 mg PO QDAY 30 Days Qty: 30 0RF furosemide 40 mg tablet 40 mg PO Q OTHER DAY Qty: 30 0RF Patient Comments: TAKE 1 TABLET BY MOUTH TWICE DAILY Rx Instructions: Take on the days you dont get hemodialysis clonidine HCl 0.1 mg tablet 0.1 mg PO BID PRN (Reason: SBP >150) Qty: 20 0RF (DME) pen needle, diabetic 29 gauge x 1/2 needle See Rx Instructions .Route Qty: 100 0RF Rx Instructions: As directed insulin lispro [Admelog U-100 Insulin lispro] 100 unit/mL solution 1 sliding scale dose subcut AC 30 Days Qty: 10 0RF Referrals: Toby Peña [Primary Care Provider] - Patient/Caregiver Discharge Instructions Discharge Activity: as per physical therapy Education Materials: Controlling High Blood Pressure, Hemodialysis, Kidney Disease Fluid Intake Print Language: Somali Stand Alone Forms: Sara Award Info., Patient Portal Info Letter Discharge Order Discharge Orders: Discharge (Routine); Ordered 07/28/24 Ordered By: Demetris Vela Quality Discharge Quality Measures VTE prophylaxis Attestestation Attestation I have discussed and was present for the essential components of the discharge history, physical examination, diagnosis, and discharge treatment plan with the resident. I agree with the patient's discharge care as documented by the resident and amended herein by me. Alberto Nolasco DO. The patient understood all discharge instructions, all questions were answered satisfactorily. The patient was instructed to return to the Emergency Department is symptoms worsened or persisted. Patient was stable, afebrile and tolerating p.o. and back at his baseline intake at time of discharge home, see raphael dorado note above for additional details in regards to hospital stay. Although this document has been carefully reviewed, there may still be some phonetic and other typographical errors. These errors are purely grammatical due to imperfections in the software program and should not be construed in any way to compromise the substance of the patient's medical care during this visit.
== END 2024-07-28 18:04 | disposition home or self-care (01) | DRG 304 ==
LOC: SERX 09:34 → SERHOLD 09:51 → S3NX 15:31
PROVIDERS: Internal Medicine; Physician Assistant; Admitting Provider Student in an Organized Health Care Education/Training Program; Emergency Provider Emergency Medicine; PCP Family Medicine; Visit Provider Student in an Organized Health Care Education/Training Program
DX: I16.1 Hypertensive emergency (principal); N18.6 End stage renal disease; E87.1 Hypo-osmolality and hyponatremia; I12.0 Hypertensive chronic kidney disease with stage 5 chronic kidney disease or end stage renal disease; E11.22 Type 2 diabetes mellitus with diabetic chronic kidney disease; E03.9 Hypothyroidism, unspecified; E80.6 Other disorders of bilirubin metabolism; F03.90 Unspecified dementia, unspecified severity, without behavioral disturbance, psychotic disturbance, mood disturbance, and anxiety; E11.65 Type 2 diabetes mellitus with hyperglycemia; R11.2 Nausea with vomiting, unspecified; E87.5 Hyperkalemia; Z79.4 Long term (current) use of insulin; Z99.2 Dependence on renal dialysis; Z90.49 Acquired absence of other specified parts of digestive tract
CPT/HCPCS: 36415; 70450; 71250; 74176; 76705; 80053; 80074; 81001; 82010; 82803; 83735; 84443; 84484; 85025; 86706; 87081; 87086; 92610; 93005; 96361; 96372; 96374; 96375; 96376; 97162; 99291; J0360; J1644; J1815; J2405; J2470; J2765; J3490; J7030; A9270; J1920